=== PATIENT | female | born 1995 | race Caucasian/White ===

== ENCOUNTER 2019-06-02 06:32 | Inpatient (IN) | payer OTHER, SELFPAY ==
[2019-06-02] VITALS (64 sets, daily range): BP systolic 90–135; BP diastolic 48–93; PULSE 74–117; RESP 18; TEMP 36.4–37.3; O2SAT 98–100; BMI 29.5
[2019-06-02 07:17] LABS: Basophils Percent Auto 0.5 % (0.2-1.2); Eosinophils Absolute Auto 0.1 K/mm3 (0-0.3); Eosinophils Percent Auto 1.6 % (0-4.4); Hemoglobin 11.4 g/dL (12.0-15.0); Immature Granulocyte Absolute 0.03 K/mm3 (0.00-0.031); Immature Granulocyte Percent A 0.3 % (0-0.5); Lymphocytes Percent Auto 17.4 % (18.3-44.2); Mean Corpuscular HGB Conc 32.6 g/dl (32-36); Mean Corpuscular Hemoglobin 30.3 pg (26-34); Mean Corpuscular Volume 93.1 fl (80-100); Mean Platelet Volume 11.4 fl (7.4-10.4); Monocytes Absolute Auto 0.6 K/mm3 (0.1-0.6); Monocytes Percent Auto 7.3 % (2.6-8.5); Neutrophils Absolute Auto 6.3 K/mm3 (1.3-6.7); Neutrophils Percent Auto 72.9 % (45.5-73.1); Platelet Count Result 181 k/mm3 (150-375); Red Blood Count 3.76 M/mm3 (4.2-5.4); Red Cell Distribution Width 13.6 % (11.5-14.5); White Blood Count 8.6 K/mm3 (4.5-10.0)
[2019-06-02] MEDS: LACTATED RINGERS 1,000 ML 125 ML IV CONT ×2 (07:25→11:02)
[2019-06-02] MEDS: OXYTOCIN 30 UNITS/NS 500 ML 30 UNITS/500 ML BAG IV CONT (07:26)
--- NOTE | 2019-06-02 07:48 | WPDOBADMIT ---
Obstetrics - Admit Note Admission Note: record reviewed. No pertinent additions to the history and/or any subsequent changes in the physical findings that are not consistent with the expected course of the were found. MIL clear odorless fluid, /-2 Additions to the history and/or subsequent changes in the physical findings follow. None.
--- NOTE | 2019-06-02 08:04 | LDADM ---
This patient, Alexandrea Craig, was admitted to Labor/Delivery/Recovery 105 on 06/02/19 at 06:32. Plans for labor, pain management and were discussed with patient. Patient/family oriented to hospital policies and general routines including ID bracelet, bed and alarms, visiting hours, pain management, procedures, bathroom and other care routines, personal items, smoking policy, room service/diet and guest tray routines, security routines, and visiting hours. Patient/Family are encouraged to report perceived risks to care and to ask questions if they do not understand what they are told or what they should do. See OBIX for further documentation.
--- NOTE | 2019-06-02 11:10 | WPDANESEPP ---
Anes - Eval Pre Procedure Procedure: Labor Epidural Date/Time: 06/02/19 13:15 Surgeon: Ginger Preop Diagnosis: Labor Pain Pre Op Diagnosis: Induction of Labor Patient Data Age: 23 Gender: F Height: 5 ft 1 in Weight: 71 kg Last Vital Signs Temp 36.5 C 06/02/19 11:33 Pulse 79 06/02/19 13:11 BP 100/56 L 06/02/19 13:11 Pulse Ox 100 06/02/19 11:57 Allergies Allergy/AdvReac Type Severity Reaction Status Date / Time amoxicillin Allergy Unknown Unknown Verified 05/11/19 13:35 codeine Allergy Unknown Itching Verified 05/11/19 13:35 Penicillins Allergy Unknown RASH Verified 05/11/19 13:35 Home Medications Medication Instructions Recorded Confirmed Type albuterol sulfate 1 puff INHALATION QID PRN #8.5 gm 03/23/19 Rx PNV cmb#95-ferrous fumarate-FA 1 tablet PO DAILY 05/11/19 05/11/19 History [] ondansetron HCl [Zofran] 4 mg PO DIRECTED 05/11/19 05/11/19 History sertraline [Zoloft] 100 mg PO DAILY 05/11/19 05/11/19 History Laboratory Tests 06/02/19 06/02/19 06/02/19 07:11 07:11 07:11 WBC 8.6 K/mm3 K/mm3 (4.5-10.0) RBC 3.76 M/mm3 L M/mm3 (4.2-5.4) Hgb 11.4 g/dL L g/dL (12.0-15.0) Hct 35.0 % L % (37.0-47.0) MCV 93.1 fl fl (80-100) MCH 30.3 pg pg (26-34) MCHC 32.6 g/dl g/dl (32-36) RDW 13.6 % % (11.5-14.5) Plt Count 181 k/mm3 k/mm3 (150-375) MPV 11.4 fl H fl (7.4-10.4) Immature Gran % (Auto) 0.3 % % (0-0.5) Neut % (Auto) 72.9 % % (45.5-73.1) Lymph % (Auto) 17.4 % L % (18.3-44.2) [place] % (Auto) 7.3 % % (2.6-8.5) Eos % (Auto) 1.6 % % (0-4.4) Baso % (Auto) 0.5 % % (0.2-1.2) Lymph # (Auto) 1.50 K/mm3 K/mm3 (0.9-3.2) [place] # (Auto) 0.6 K/mm3 K/mm3 (0.1-0.6) Eos # (Auto) 0.1 K/mm3 K/mm3 (0-0.3) Baso # (Auto) 0.0 K/mm3 K/mm3 (0.0-0.1) Abs Immat Gran (auto) 0.03 K/mm3 K/mm3 (0.00-0.031) Absolute Neuts (auto) 6.3 K/mm3 K/mm3 (1.3-6.7) Absolute Nucleated RBC 0.0 K/mm3 K/mm3 (0.0-0.012) Nucleated RBC % 0.0 % % (0.0-0.2) RPR Pending Blood Type O Positive Antibody Screen Negative : gestational age (ALO 05/29/19, ) Patient hx anesthesia problems: none Family hx anesthesia problems: none PMFSH Past Medical History Medical History History of anxiety Family History Family History Other Unknown family medical history Social History Social History Smoking status: Former smoker Second hand tobacco smoke exposure: No Substance use: never Gender identity (if verbalized by the patient): Female Spiritual care concerns: No Exam Day of Procedure 06/02/19 13:15
[2019-06-02 16:06] LABS: Rapid Plasma Reagin Non-Reactive (NonReactive)
--- NOTE | 2019-06-02 16:41 | PM.OBPRVD ---
OB - Delivery Note Procedure Delivery date: 06/02/19 Intrapartal events: None Induction method: per pitocin protocol Delivery monitor: external FHT and external uterine Route of delivery: Episiotomy description: None Laceration description: None Estimated blood loss (mL): 72 Anesthesia type: Epidural Baby Date of : 06/02/19 Time of : 16:27 Weeks of gestation at delivery: 39 presentation: vertex position: Left Occiput Anterior Placenta delivery description: Spontaneous cord vessel description: 3 Vessels score one minute: 9 score five minutes: 9 Narrative: Mother and baby in stable condition. Peds here for delivery d/t possible arrythmia. Cord gasses collected. .75cc arterial 1cc venous.
[2019-06-02] MEDS: IBUPROFEN 600 MG TABLET PO (18:41)
[2019-06-02] MEDS: BENZOCAINE 20% AER SPR (*SP) 56 GM CAN 1 SPRAY TOPICAL (18:42)
[2019-06-02] MEDS: SERTRALINE HCL 50 MG TABLET 100 MG PO ×2 (20:00→23:08)
[2019-06-02] MEDS: ACETAMINOPHEN 325 MG TABLET 650 MG PO (20:31)
--- NOTE | 2019-06-02 22:04 | PC.NURSE ---
Patient transferred to post room #291 via wheelchair with baby in bassinet. Support person present. Oriented to unit, room, information board, rooming in, admission packet and security measures. Patient verbalizes understanding.
[2019-06-03] MEDS: IBUPROFEN 600 MG TABLET PO ×3 (01:25→16:30)
[2019-06-03] MEDS: ACETAMINOPHEN 325 MG TABLET 650 MG PO ×2 (05:44→12:15)
[2019-06-03 06:05] LABS: Hematocrit 31.2 % (37.0-47.0); Hemoglobin 10.3 g/dL (12.0-15.0)
[2019-06-03 07:45] VITALS: BP 110/77; PULSE 83; RESP 18; TEMP 36.5; O2SAT 98
--- NOTE | 2019-06-03 07:52 | PM.OBPNVD ---
OB - PN: Subj Subjective Date/time seen: 06/03/19 07:52 OB - PN: Obj Data Labs CBC & Chem 7: 06/03/19 05:50 Labs: Laboratory Results - last 24 hr 06/02/19 06/02/19 06/03/19 07:11 07:11 05:50 Hgb 10.3 L Hct 31.2 L RPR Non-reactive Blood Type O Positive Antibody Screen Negative OB - PN A/P Plan day: 1 Plan: routine care Comments: Pt requesting stronger pain medication for cramps. Time Spent With Patient Time: Total time spent is greater than 50% in coordination of care (as documented) at patient's floor/unit and/or counseling patient: Review of Systems Review of Systems: All systems reviewed & are unremarkable except as noted in HPI and below Exam Narrative: Exam Narrative: Fundus firm and vaginal flow controlled. Const: General: comfortable Resp: Effort & Inspection: normal respiratory effort Psych: Appearance: grossly normal Affect: normal affect Attitude: cooperative Judgement: Good judgement present (Psych)
--- NOTE | 2019-06-03 07:55 | WPDANLDPN2 ---
Anes-Prog Note L&D Date/Time: 06/03/19 07:55 Comfortable throughout: labor and delivery Neuraxial method: epidural Epidural/Spinal procedure site: clean & non-tender Neuro status: Neuro function grossly intact. Cardiovascular status: normal Respiratory status: normal Airway patency: baseline Mental status: baseline Post-Op hydration status: normal Vital Signs: Last Vital Signs Temp 36.6 C 06/02/19 19:45 Pulse 80 06/02/19 19:45 Resp 18 06/02/19 19:45 BP 103/62 06/02/19 19:45 Pulse Ox 98 06/02/19 19:45 I/O: Intake & Output 06/02/19 06/02/19 06/03/19 15:59 23:59 07:59 Intake Total 1000 100 Output Total 253 Balance 1000 -153 Post-procedural complaints: none Patient feedback: Patient satisfied with anesthetic care.
--- NOTE | 2019-06-03 08:08 | P.PNOB_ITS ---
OB - PN: Subj Subjective Date/time seen: 06/03/19 08:08 OB - PN: Obj Data Labs CBC & Chem 7: 06/03/19 05:50 Labs: Laboratory Results - last 24 hr 06/02/19 06/02/19 06/03/19 07:11 07:11 05:50 Hgb 10.3 L Hct 31.2 L RPR Non-reactive Blood Type O Positive Antibody Screen Negative OB - PN A/P Plan day: 1 Plan: discharge home Comments: Pt has now decided to go home this evening. Time Spent With Patient Time: Total time spent is greater than 50% in coordination of care (as d ocumented) at patient's floor/unit and/or counseling patient:
--- NOTE | 2019-06-03 08:08 | PM.OBDSVD ---
DS: Diagnosis Discharge Diagnosis (1) Vaginal delivery: Code(s): O80 - Encounter for full-term uncomplicated delivery Status: Acute OB - DS: Summary OB Procedures : None OB Procedures Intrapartum: Spontaneous Vag Delivery OB Procedures: : None Time Spent with Patient Time attestation: Total time spent providing and/or coordinating discharge services: Exam Const: General: comfortable Resp: Effort & Inspection: normal respiratory effort Cardio: Rate: regular rate GI: GI Palp: Yes Soft to palpation Psych: Appearance: grossly normal Affect: normal affect Attitude: cooperative Thought content: Yes Normal thought content present Judgement: Good judgement present (Psych) DS: Data Data Completed and Pending Labs on day of discharge: Labs from last 24 hours 06/03/19 06/02/19 06/02/19 05:50 07:11 07:11 Hgb 10.3 L Hct 31.2 L RPR Non-reactive Blood Type O Positive Antibody Screen Negative Discharge Plan Discharge Attending physician on discharge: Roxane Miles Discharging Clinician: Kathi Keys Patient Disposition: Home, Self-Care Activity: pelvic rest Diet: as tolerated Patient Instructions: Antibiotic Form Stand Alone Forms: General Discharge Information Follow-up/Referrals: Kathi Keys CNM [Certified Nurse Field Technician] - Discharge Medications: Continued albuterol sulfate 90 mcg/actuation HFA aerosol inhaler 1 puff INHALATION QID PRN (Reason: shortness of breath or wheezing) Qty: 8.5 RF: 0 sertraline [Zoloft] 100 mg Tablet 100 mg PO DAILY RF: 0 PNV cmb#95-ferrous fumarate-FA [] 28 mg iron- 800 mcg Tablet 1 tablet PO DAILY RF: 0 Discontinued ondansetron HCl [Zofran] 4 mg Tablet 4 mg PO DIRECTED RF: 0 Date of admission: 06/02/19 06:32 Primary Care Provider: Moses Goode Admitting Provider: Roxane Miles Attending physician on admission: Roxane Miles
[2019-06-03] MEDS: MULTIVIT/MIN/PREN/FOL AC/IRON TABLET 1 TAB PO (08:44)
--- NOTE | 2019-06-03 14:15 | PC.NURSE ---
Consulted with patient, mother reports tenderness with feeding. Mother reports she attempted with first and pumped for a few months. Both nipples have bruised areas from shallow possible shallow latch. Reviewed feeding cues, frequencies, duration of feedings, feeding elimination flow sheet, and signs of adequate intake. Demonstrated stimulation techniques to wake infant for feeding. Assisted with to breast. Reviewed positioning/alignment in cross cradle, holding breast in U hold and guided asymmetrical latch on. Discussed rational for each. was able to latch correctly with in a few attempts. Mother reports she can feel infant is latched more deeply than previous feedings. nursed eagerly, with steady draws and frequent swallowing noted. Reviewed signs of a correct latch, effective nursing and suck swallow ratio. Infant was able to maintain latch without discomfort to mother. Nipple care reviewed. Suggested mother stimulate during feeding to keep infant nursing effectively for increased intake and assist with maintaining deep latch. Demonstrated how to adjust latch more deeply while feeding. Mother wishes for 24 hour discharge. Mother is feeding as required and waking to feed if needed. is feeding as required with several effective feedings in the past 24 hours, and is currently meeting outcomes for weight, output, jaundice and feeding frequencies. Mother states she feels confident to continue effective at home. Reviewed transition to breast milk, signs of adequate intake, and engorgement/relief. Instructed to call ICP if intake/output less than required. Reviewed regular medications mother is taking. Information provided per [facility]. Reviewed community resources on the [facility] website and in the Mom/Baby guide. Information on outpatient services provided. Mother has no further questions at this time.
[2019-06-04 13:42] VITALS: BP 129/78; PULSE 80; RESP 18; TEMP 36.5
== END 2019-06-03 18:59 | disposition home or self-care (01) | DRG 560 ==
LOC: ANHLDR 06:36 → ANHOB2 19:30
PROVIDERS: Advanced Practice Midwife; Admitting Provider Obstetrics & Gynecology; PCP Emergency Medicine; Visit Provider Obstetrics & Gynecology
DX: O43.113 Circumvallate placenta, third trimester (principal); Z3A.39 39 weeks gestation of pregnancy; Z37.0 Single live birth; Z87.891 Personal history of nicotine dependence; Z23 Encounter for immunization; O71.7 Obstetric hematoma of pelvis
CPT/HCPCS: 36415; 85014; 85018; 85025; 86592; 86850; 86900; 86901; A9270; J2590; J2795; J3010; J7120

== ENCOUNTER 2019-10-02 11:03 | Emergency (ER) | payer OTHER, SELFPAY ==
[2019-10-02] VITALS (7 sets, daily range): BP systolic 115–133; BP diastolic 66–88; PULSE 78–94; RESP 16–20; TEMP 36.9–37.3; O2SAT 94–98
--- NOTE | ~2019-10-02 | CT_ITS ---
EXAMINATION: CT brain wo con DATE: 10/02/2019 11:52 INDICATION: Seizure. Headache. TECHNIQUE: Computed tomography (CT) of the head was performed without intravenous contrast. The mA wa s adjusted according to patient size. Iterative reconstruction technique was employed. The dose-lengt h product was 605.33 mGy-cm. COMPARISON: Head CT 10/01/2017 FINDINGS: There is no intracranial hemorrhage, acute infarction, or abnormal intracranial mass lesion . The ventricles are normal in size. The orbits are normal. There is mild mucosal thickening in the p aranasal sinuses. There is a trace right mastoid effusion. IMPRESSION: 1. Normal brain. Reviewed, dictated and finalized at location A. IMPRESSION: 1. Normal brain.
--- NOTE | 2019-10-02 11:20 | ECG_ITS ---
Measurements Intervals [place] Rate: 85 P: -39 TX: 136 QRS: 77 QRSD: 86 T: 57 QT: 341 QTc: 406 Interpretive Statements SINUS RHYTHM NORMAL ECG Electronically Signed On 10-02-2019 11:32:03 CDT by Cristóbal Moore D.O.
[2019-10-02 11:39] LABS: Basophils Absolute Auto 0.1 K/mm3 (0.0-0.1); Basophils Percent Auto 1.3 % (0.2-1.2); Eosinophils Absolute Auto 0.4 K/mm3 (0-0.3); Eosinophils Percent Auto 6.2 % (0-4.4); Hematocrit 39.7 % (37.0-47.0); Hemoglobin 13.3 g/dL (12.0-15.0); Immature Granulocyte Absolute 0.02 K/mm3 (0.00-0.031); Immature Granulocyte Percent A 0.3 % (0-0.5); Lymphocytes Absolute Auto 0.82 K/mm3 (0.9-3.2); Lymphocytes Percent Auto 13.7 % (18.3-44.2); Mean Corpuscular HGB Conc 33.5 g/dl (32-36); Mean Corpuscular Hemoglobin 30.2 pg (26-34); Mean Platelet Volume 10.1 fl (7.4-10.4); Monocytes Absolute Auto 0.2 K/mm3 (0.1-0.6); Neutrophils Absolute Auto 4.4 K/mm3 (1.3-6.7); Neutrophils Percent Auto 74.5 % (45.5-73.1); Platelet Count Result 266 k/mm3 (150-375); Red Blood Count 4.41 M/mm3 (4.2-5.4); Red Cell Distribution Width 13.1 % (11.5-14.5)
--- NOTE | 2019-10-02 11:48 | ED.SEIZURE ---
HPI - Seizure General Chief Complaint: Seizure Stated Complaint: seizure Time Seen by Provider: 10/02/19 11:27 Source: patient Mode of arrival: EMS Limitations: other (patient does not remember event) History of Present Illness HPI Narrative: This is a 24 year old female that presents to the ER for seizure today. Reports she woke up with a headache this morning. Reports she took some Tylenol and went to take a nap. Reports when she woke up she continued to have a headache. Reports she next remembers her mother next to her crying. Mom told her she had a seizure again. Mother called EMS. Patient reports she has had 1 prior seizure 2 years ago. She was started on Lamictal at that time. Reports it had been so long without her having a seizure that she was taking off Lamictal. Reports she was recently started on it again for bipolar depression. Denies fever, chest pain, shortness of breath, abdominal pain, vision changes, vomiting, numbness, or weakness. Seizure History: Yes (WITH 1ST PREG AT 7 MONTHS) Related Data Home Medications Medication Instructions Recorded Confirmed PNV cmb#95-ferrous fumarate-FA 1 tablet PO DAILY 05/11/19 05/11/19 [] sertraline [Zoloft] 100 mg PO DAILY 05/11/19 05/11/19 Lamictal PO HS 10/02/19 biotin 2,500 mcg PO DAILY 10/02/19 10/02/19 Allergies Allergy/AdvReac Type Severity Reaction Status Date / Time amoxicillin Allergy Unknown Unknown Verified 05/11/19 13:35 Penicillins Allergy Unknown RASH Verified 05/11/19 13:35 Review of Systems Review of Systems: Narrative: CONSTITUTIONAL: Denies fever EYES: Denies visual changes CARDIOVASCULAR: Denies chest pain RESPIRATORY: Denies dyspnea. GASTROINTESTINAL: Denies abdominal pain, nausea, vomiting GENITOURINARY: Denies dysuria or hematuria. NEUROLOGIC: Reports headache. Denies numbness, or weakness. All systems reviewed & are unremarkable except as noted in HPI and below PMFSH Past Medical History Medical History (Updated 10/02/19 @ 15:07 by Angela Martin PA-C) History of anxiety History of seizures Social History Social History Smoking status: Former smoker Second hand tobacco smoke exposure: No Substance use: never Gender identity (if verbalized by the patient): Female Spiritual care concerns: No Exam Narrative: Exam Narrative: GENERAL: Well-appearing, well-nourished, and in no acute distress. HEAD: Normocephalic, atraumatic. EYES: PERRLA and EOMI. ENT: Nares clear, no rhinorrhea or epistaxis. Mucous membranes moist. Oropharynx without tonsillar hypertrophy exudate or other lesions. Bilateral TMs pearly mcdaniel non-bulging NECK: Supple. No adenopathy or masses. CHEST: Clear to auscultation. No respiratory distress. No wheezes rales or rhonchi HEART: Regular rate and rhythm. No murmur heard. Normal peripheral pulses. ABDOMEN: Soft, nontender, nondistended, normal active bowel sounds. EXTREMITIES: Normal range of motion. No edema. SKIN: Warm, dry, no rash. NEURO: No focal deficits. Alert and oriented x3. Cranial nerves II through XII grossly intact. Normal [id number] PSYCH: Normal mood and affect Course Consultations Consultation #1: Spoke with Dr. Ludwig about patient and work-up who would like Lamictal increased to 50 mg twice daily and will follow-up in clinic. Date: 10/02/19 Time: 15:06 Vital Signs Vital signs: Vital Signs Temperature 99.2 F 10/02/19 11:03 Pulse Rate 94 10/02/19 11:03 Respiratory Rate 18 10/02/19 11:03 Blood Pressure 133/88 10/02/19 11:03 Pulse Oximetry 95 10/02/19 11:03 Temperature 99.2 F 10/02/19 11:03 Pulse Rate 82 10/02/19 14:17 Respiratory Rate 20 10/02/19 14:17 Blood Pressure 127/68 10/02/19 14:17 Pulse Oximetry 98 10/02/19 14:17 MDM - Seizure MDM Narrative Medical decision making narrative: Patient presents the emergency department after a generalized seizure today. Witnessed by her mo
[2019-10-02 11:51] LABS: Alanine Aminotransferase 18 U/L (4-35); Albumin Level 4.6 g/dL (3.5-5.1); Alkaline Phosphatase 85 U/L (38-126); Aspartate Amino Transferase 34 U/L (14-36); Bilirubin,Total 0.4 mg/dL (0.2-1.3)
[2019-10-02 11:52] LABS: Anion Gap 12.4 mmol/L (7-16); Blood Urea Nitrogen 14 mg/dL (7-17); Calcium 9.2 mg/dL (8.4-10.2); Carbon Dioxide 27 mmol/L (22-30); Chloride 101 mmol/L (98-107); Estimated CRCL calculation 110 ml/min; Estimated Glomerular Filt Rate > 60; Glucose 104 mg/dL (65-105); Potassium 4.4 mmol/L (3.4-5.0); Sodium 136 mmol/L (137-145)
[2019-10-02] MEDS: SODIUM CHLORIDE 0.9% IV 1,000 ML 999 ML IV CONT (12:09)
[2019-10-02 12:12] LABS: Magnesium 1.8 mg/dL (1.6-2.3)
[2019-10-02] MEDS: KETOROLAC 15 MG/ML VIAL (*BKC) IV PUSH (12:12)
[2019-10-02 12:20] LABS: Add Urine Microscopic? NO; Appearance Urine Clear (Clear); Bilirubin Urine Negative (Negative); Blood Urine Negative (Negative); Color Urine Straw (Yellow); Glucose Urine UA Negative (Negative); Ketones Urine Negative (Negative); Leukocyte Esterase Ur Negative LEU/UL (Negative); Nitrate Urine Negative (Negative); Protein Urine Negative (Negative); Specific Grav Ur 1.019 (1.001-1.035); Urobilinogen Urine Negative mg/dL (<2.0)
[2019-10-02 12:37] LABS: Amphetamine Screen Urine Negative (Negative); Barbiturate Screen Urine Negative (Negative); Benzodiazepines Screen Urine Negative (Negative); Cannabinoid Screen Urine Negative (Negative); Cocaine Screen Urine Negative (Negative); Methadone Screen Urine Negative (Negative); Opiate Screen Urine Negative (Negative); Phencyclidine Screen Urine Negative (Negative)
[2019-10-02] MEDS: diphenhydrAMINE HCl INJ 50 MG/ML VIAL 25 MG IV PUSH (13:38)
[2019-10-02] MEDS: METOCLOPRAMIDE HCL INJ 10 MG/2 ML VIAL IV PUSH (13:39)
[2019-10-07 22:36] LABS: Lamotrigine Lamictal 0.9 mcg/mL (4.0-18.0)
== END 2019-10-02 15:36 | disposition home or self-care (01) ==
PROVIDERS: Physician Assistant; Emergency Provider Emergency Medicine; PCP Emergency Medicine
DX: R56.9 Unspecified convulsions (principal); F31.9 Bipolar disorder, unspecified
CPT/HCPCS: 36415; 70450; 80048; 80076; 80175; 80307; 81003; 81025; 83735; 85025; 93005; 96361; 96365; 96375; 99284; J0131; J1200; J1885; J2765; J7030

== ENCOUNTER 2019-11-09 01:28 | Outpatient (CLI) | payer OTHER, SELFPAY ==
[2019-11-09 16:17] LABS: SARS-CoV-2 RNA PCR Negative
== END 2019-11-09 01:29 | disposition home or self-care (01) ==
LOC: ANHCOVIDDT 01:28
PROVIDERS: PCP Emergency Medicine; Visit Provider Obstetrics & Gynecology
DX: Z01.812 Encounter for preprocedural laboratory examination (principal); Z20.828 Contact with and (suspected) exposure to other viral communicable diseases
CPT/HCPCS: 87635; C9803; U0003

== ENCOUNTER 2019-11-11 00:15 | Day surgery (SDC) | payer OTHER, SELFPAY ==
[2019-11-03 15:24] VITALS: BMI 27.9
[2019-11-11] VITALS (7 sets, daily range): BP systolic 103–116; BP diastolic 57–64; PULSE 72–108; RESP 10–20; TEMP 36.1–36.6; O2SAT 97–100
--- NOTE | 2019-11-11 07:11 | WPDHPUPDATE1 ---
History and Physical Update Update Date/Time: 11/11/19 07:11 History and Physical has been reviewed, including an updated exam of the patient. There are NO changes in the patient's condition. Risks, benefits, and alternatives have been discussed and questions answered. Patient agrees to proceed with procedure.
--- NOTE | 2019-11-11 07:32 | P.PNAN_ITS ---
Anes - Initial Pre Proc Eval Procedure: Operation Date: 11/11/19 09:30 Proposed Procedures p Diagnostic Laparoscopy - Roxane Miles MD Date/Time: 11/11/19 07:32 Surgeon: Roxane Miles MD Pre Op Diagnosis: Pelvic and Perineal Pain Patient Data Age: 24 Gender: F Height: 5 ft 1 in Weight: 67.13 kg Allergies Allergy/AdvReac Type Severity Reaction Status Date / Time amoxicillin Allergy Unknown Hives Verified 11/11/19 07:42 Penicillins Allergy Unknown Hives Verified 11/11/19 07:42 Home Medications Medication Instructions Recorded Confirmed Type albuterol sulfate 1 puff INHALATION QID PRN #8.5 gm 03/23/19 11/03/19 Rx PNV cmb#95-ferrous fumarate-FA 1 tablet PO DAILY 05/11/19 11/03/19 History [] biotin 2,500 mcg PO DAILY 10/02/19 11/03/19 History diphenhydramine HCl [Benadryl] 25 mg PO DAILY PRN 11/03/19 11/03/19 History fluoxetine 10 mg PO DAILY 11/03/19 11/03/19 History fluoxetine 20 mg PO DAILY 11/03/19 11/03/19 History hydrocodone-acetaminophen 1 tablet PO Q6H PRN 11/03/19 11/03/19 History hydroxyzine pamoate 50 mg PO QID PRN 11/03/19 11/03/19 History lamotrigine 50 mg PO BID 11/03/19 11/03/19 History prazosin 1 mg PO HS 11/03/19 11/03/19 History Patient hx anesthesia problems: none Family hx anesthesia problems: none [facility] Past Medical History Medical History (Updated 11/11/19 @ 08:03 by Isaias Pinon MD) Anxiety Asthma Depression History of anxiety History of seizures two seizures in the past and ; continues to take medications Social History Social History Years smoked: 1 Smoking status: Current every day smoker Tobacco type: cigarettes Second hand tobacco smoke exposure: No Substance use: never Gender identity (if verbalized by the patient): Female Spiritual care concerns: No Anes - Eval Final PreProcedure Day of Procedure 11/11/19 07:32 Patient weight: normal Heart: regular rate and rhythm Lungs: clear to auscultation Airway: Mallampati scale class II Neurological: alert and oriented Last oral intake: >/= 8 hours ASA classification: II Emergent: no Anesthetic plan: proceed Anesthesia type and monitoring: general ETT and standard monitoring Informed Consent: The patient's anesthetic plan and its attendant risks and benefits were discussed with the patient/family/POA. Questions were solicited and answers provided to the satisfaction of the patient/family/POA.
[2019-11-11] MEDS: ACETAMINOPHEN 500 MG TABLET 1000 MG PO (07:48)
[2019-11-11] MEDS: LACTATED RINGERS 1,000 ML 30 ML IV CONT ×2 (08:02→11:33)
[2019-11-11] MEDS: KETOROLAC 15 MG/ML VIAL (*BKC) IV PUSH (08:02)
--- NOTE | 2019-11-11 10:57 | SUR.OPER ---
EBL:20cc
--- NOTE | 2019-11-11 11:18 | P.OP_ITS ---
Procedure Note - Detailed Date of procedure: 11/11/19 Pre-op diagnosis: Pelvic and Perineal Pain Procedure performed: Radical resection of endometriosis, 80 minutes of resection of endometriosis. Description of procedure: The patient was taken the operating room. She was prepped and draped in the dorsal lithotomy position after induction of general anesthesia. A 5 mm left upper quadrant incision was made in the abdominal skin with a scalpel. A 5 mm trocar was inserted the intra-abdominal cavity under direct visualization of the scope. A 5 mm left lower quadrant incision was made with the scalp on the abdominal skin and a 5 mm trocar was inserted the intra- abdominal cavity under direct visualization of the scope. A 5 mm infraumbilical incision was made with scalpel and a 5 mm trocar was inserted into the intra- abdominal cavity under direct visualization of the scope. Using sharp and blunt dissection along with cautery the pelvic peritoneum on the entire left side of the posterior cul-de-sac was removed. The ureter was dissected out down to the level of the uterine arteries and found to be intact. over 80 minutes of endometriosis resection was performed. On the right side of the posterior cul-de-sac endometrial implants were cauterized. This was done using bipolar cautery away from the ureter. Prior to the resection a CHANDRA manipulator was placed in the intrauterine cavity and the ovary was suspended using a suture transabdominally to the left ovary. This was placed using a Parrish-Amberly Endo Close needle. It was done by piercing the left lower quadrant of the abdominal wall holding the suture with the needle/trocar. The needle was placed through the left ovary and the suture was grasped on the left side of the left ovary. Pulled back through the trans abdominal wall . It was held there /both sutures held by a hemostatic. the dissection was complete the left side of the posterior cul-de-sac was covered with Interceed. The pelvis was irrigated with copious amounts of normal saline. The pneumoperitoneum was reduced. The trocars were removed. The patient was taken recovery room stable condition. Sponge lap and needle counts were correct x2. Anesthesia: GETA Surgeon: Rxoane Miles MD Estimated blood loss (mL): 75 Drains: No Packing: No Complications: No immediate complications Condition: stable Disposition: PACU Findings: There was endometriosis and scar tissue throughout the left side of the posterior cul-de-sac. There was endometrial implants on the right side of the posterior cul-de-sac. Normal appearing uterus tubes and ovaries. There was a very redundant sigmoid colon the ran into the upper abdomen that was full of firm stool, there is hemoperitoneum at the beginning of the case. It was in the posterior cul-de-sac.
--- NOTE | 2019-11-11 13:04 | SUR.PHASEII ---
PT DRESSING; AWAITING RIDE.
== END 2019-11-11 13:33 | disposition home or self-care (01) ==
PROVIDERS: PCP Emergency Medicine; Visit Provider Obstetrics & Gynecology
PROC: (CPT 49320; principal; 2019-11-11 09:30)
DX: N80.3 Endometriosis of pelvic peritoneum (principal); R10.2 Pelvic and perineal pain; N39.0 Urinary tract infection, site not specified; N92.6 Irregular menstruation, unspecified
CPT/HCPCS: 58662; A9270; J0330; J1100; J1170; J1885; J2250; J2405; J2704; J2710; J3010; J7120

== ENCOUNTER 2020-02-13 09:54 | Emergency (ER) | payer OTHER, SELFPAY ==
[2020-02-13] VITALS (10 sets, daily range): BP systolic 121–150; BP diastolic 66–98; PULSE 78–92; RESP 18; TEMP 36.1; O2SAT 97–100
--- NOTE | ~2020-02-13 | CT_ITS ---
EXAMINATION: CT abdomen pelvis wo con DATE: 02/13/2020 11:54 INDICATION: Right lower quadrant pain and vomiting TECHNIQUE: Computed tomography (CT) of the abdomen and pelvis was performed without intravenous contr ast. The dose-length product was 358.90 mGy-cm. Automated exposure control and iterative reconstructi on technique were employed. COMPARISON: CT dated 05/27/2015 FINDINGS: There is a 2 mm right UVJ stone with moderate right hydroureteronephrosis. There is right p erinephric and periureteral edema. Punctate right nephrolithiasis. Lung bases unremarkable. Heart size normal. No pleural or pericardial effusion. No significant vascul ar abnormality. No lymphadenopathy. Nonobstructive bowel gas pattern. The liver, spleen, pancreas, adrenal glands and left kidney are unremarkable. There are surgical rasmussen ges likely related to previous appendectomy. IMPRESSION: 1. Right UVJ stone measuring 2 mm with mild hydroureteronephrosis and periureteral edema. 2: Nonobstructing right nephrolithiasis. Reviewed, dictated and finalized at location A. CAL STAFF CREDENTIALING COORDINATOR IMPRESSION: 1. Right UVJ stone measuring 2 mm with mild hydroureteronephrosis and periurete ral edema. 2: Nonobstructing right nephrolithiasis.
--- NOTE | ~2020-02-13 | XR_ITS ---
XR abdomen/kub 1V 02/13/2020 12:04 Indication: Right flank pain Procedure: KUB Comparison: CT dated 02/13/2020 Findings: There is a 2 mm right UVJ stone adjacent to the coccyx. Bowel gas pattern nonobstructive. N o acute osseous abnormality. Impression: 1: Right UVJ stone measuring approximately 2 mm. Reviewed, dictated and finalized at location A. ITY TELLER Impression: 1: Right UVJ stone measuring approximately 2 mm.
[2020-02-13] MEDS: SODIUM CHLORIDE 0.9% IV 1,000 ML 999 ML IV CONT ×2 (10:26→13:05)
[2020-02-13] MEDS: FAMOTIDINE 20 MG/2 ML VIAL IV PUSH (10:27)
[2020-02-13] MEDS: ONDANSETRON INJ 4 MG/2 ML VIAL IV PUSH (10:27)
[2020-02-13] MEDS: LORazepam INJ (*CRX) 2 MG/ML VIAL 1 MG IV PUSH (10:33)
[2020-02-13 10:42] LABS: Basophils Absolute Auto 0.1 K/mm3 (0.0-0.1); Basophils Percent Auto 1.3 % (0.2-1.2); Eosinophils Absolute Auto 0.5 K/mm3 (0-0.3); Eosinophils Percent Auto 7.2 % (0-4.4); Hematocrit 40.2 % (37.0-47.0); Hemoglobin 13.4 g/dL (12.0-15.0); Immature Granulocyte Absolute 0.02 K/mm3 (0.00-0.031); Immature Granulocyte Percent A 0.3 % (0-0.5); Lymphocytes Absolute Auto 1.14 K/mm3 (0.9-3.2); Lymphocytes Percent Auto 16.5 % (18.3-44.2); Mean Corpuscular HGB Conc 33.3 g/dl (32-36); Mean Corpuscular Hemoglobin 29.5 pg (26-34); Mean Corpuscular Volume 88.4 fl (80-100); Mean Platelet Volume 9.5 fl (7.4-10.4); Monocytes Absolute Auto 0.4 K/mm3 (0.1-0.6); Monocytes Percent Auto 5.1 % (2.6-8.5); Neutrophils Absolute Auto 4.8 K/mm3 (1.3-6.7); Neutrophils Percent Auto 69.6 % (45.5-73.1); Platelet Count Result 248 k/mm3 (150-375); Red Blood Count 4.55 M/mm3 (4.2-5.4); Red Cell Distribution Width 12.2 % (11.5-14.5); White Blood Count 6.9 K/mm3 (4.5-10.0)
[2020-02-13 10:53] LABS: Alanine Aminotransferase 20 U/L (4-35); Albumin Level 4.5 g/dL (3.5-5.1); Alkaline Phosphatase 75 U/L (38-126); Anion Gap 10 mmol/L (8-16); Aspartate Amino Transferase 35 U/L (14-36); Bilirubin,Total 0.2 mg/dL (0.2-1.3); Blood Urea Nitrogen 17 mg/dL (7-17); Calcium 8.9 mg/dL (8.4-10.2); Carbon Dioxide 25 mmol/L (22-30); Chloride 107 mmol/L (98-107); Estimated CRCL calculation 110 ml/min; Estimated Glomerular Filt Rate > 60; Glucose 112 mg/dL (65-105); Lipase 65 U/L (23-300); Potassium 4.5 mmol/L (3.4-5.0); Sodium 142 mmol/L (137-145)
[2020-02-13 11:11] LABS: Add Urine Microscopic? YES; Appearance Urine Clear (Clear); Bilirubin Urine Negative (Negative); Blood Urine 1+ (Negative); Color Urine Straw (Yellow); Glucose Urine UA Negative (Negative); Ketones Urine Negative (Negative); Leukocyte Esterase Ur Negative LEU/UL (Negative); Mucus Urine Rare /lpf; Nitrate Urine Negative (Negative); Protein Urine 1+ mg/dL (Negative); RBC Urine 21-50 /hpf (0-2); Specific Grav Ur 1.018 (1.001-1.035); Urobilinogen Urine Negative mg/dL (<2.0); WBC Urine 0-3 /hpf
--- NOTE | 2020-02-13 11:18 | ED.GENADULT ---
HPI - General Adult General Chief complaint: Abdominal Pain <DEONDRE Cruz Last Filed: 02/13/20 14:03> Stated complaint: abd pain <DEONDRE Cruz Last Filed: 02/13/20 14:03> Time Seen by Provider: 02/13/20 10:04 <DEONDRE Cruz Last Filed: 02/13/20 14:03> Source: patient <DEONDRE Cruz Last Filed: 02/13/20 14:03> Mode of arrival: ambulatory <DEONDRE Cruz Last Filed: 02/13/20 14:03> Limitations: no limitations <DEONDRE Cruz Last Filed: 02/13/20 14:03> History of Present Illness HPI narrative: Patient is a 24-year-old female who presents with acute onset of sharp stabbing right flank pain that began this morning patient denies similar occurrence in the past notes associated nausea she had felt fine yesterday nothing is making the pain better or worse pain is remained constant and severe in nature <DEONDRE Cruz Last Filed: 02/13/20 14:03> Related Data Home medications: Home Medications Medication Instructions Recorded Confirmed [facility] cmb#95-ferrous fumarate-FA 1 tablet PO DAILY 05/11/19 11/11/19 [] biotin 2,500 mcg PO DAILY 10/02/19 11/11/19 diphenhydramine HCl [Benadryl] 25 mg PO DAILY PRN 11/03/19 11/11/19 fluoxetine 10 mg PO DAILY 11/03/19 11/11/19 fluoxetine 20 mg PO DAILY 11/03/19 11/11/19 hydroxyzine pamoate 50 mg PO QID PRN 11/03/19 11/11/19 lamotrigine 50 mg PO BID 11/03/19 11/11/19 <DEONDRE Cruz Last Filed: 02/13/20 14:03> Allergies/adverse reactions: Allergies Allergy/AdvReac Type Severity Reaction Status Date / Time amoxicillin Allergy Unknown Hives Verified 02/13/20 10:46 Penicillins Allergy Unknown Hives Verified 02/13/20 10:46 <DEONDRE Cruz Last Filed: 02/13/20 14:03> Review of Systems Review of Systems: All systems reviewed & are unremarkable except as noted in HPI and below <Power Casillas PA-C - Last Filed: 02/13/20 14:03> [facility] Past Medical History Medical History: Medical History Anxiety Asthma Depression History of anxiety History of seizures two seizures in the past and ; continues to take medications <Power Casillas PA-C - Last Filed: 02/13/20 14:03> Family History Family History: Family History Other Unknown family medical history <Power Casillas PA-C - Last Filed: 02/13/20 14:03> Social History Social History: Social History Years smoked: 1 Smoking status: Current every day smoker Tobacco type: cigarettes Second hand tobacco smoke exposure: No Substance use: never Gender identity (if verbalized by the patient): Female Spiritual care concerns: No <Power Casillas PA-C - Last Filed: 02/13/20 14:03> Exam Narrative: Exam Narrative: GENERAL: Ill-appearing, well-nourished, uncomfortable, and in no acute distress. HEAD: Normocephalic, atraumatic. EYES: PERRLA and EOMI. ENT: Nares clear, no rhinorrhea or epistaxis. Mucous membranes moist. CHEST: Clear to auscultation. No respiratory distress. No wheezes rales or rhonchi HEART: Regular rate and rhythm. No murmur heard. Normal peripheral pulses. ABDOMEN: Soft, generalized tenderness, nondistended, EXTREMITIES: Normal range of motion. No edema. SKIN: Warm, dry, no rash. NEURO: No focal deficits. Alert and oriented x3. PSYCH: Normal mood and affect. <Power Casillas PA-C - Last Filed: 02/13/20 14:03> Course Course Emergency Course: Patient in the room in no distress aware of case findings treatment plan diagnosis agreeing to follow with her urologist patient resting comfortably in no distress was treated has a small stone which she should be able to pass no other high risk change <Power Casillas PA-C - Last Filed: 02/13/20 14:03>
[2020-02-13] MEDS: MORPHINE SULFATE (*CRX) 4 MG/ML INJ IV PUSH ×2 (11:23→13:06)
[2020-02-13] MEDS: KETOROLAC 30 MG/ML VIAL (*BKC) IV PUSH (12:21)
== END 2020-02-13 14:37 | disposition home or self-care (01) ==
PROVIDERS: Emergency Provider General Practice; PCP Emergency Medicine
DX: N13.2 Hydronephrosis with renal and ureteral calculous obstruction (principal); F41.9 Anxiety disorder, unspecified; F32.9 Major depressive disorder, single episode, unspecified; J45.909 Unspecified asthma, uncomplicated; F17.210 Nicotine dependence, cigarettes, uncomplicated
CPT/HCPCS: 36415; 51701; 74018; 74176; 80053; 81001; 81025; 83690; 85025; 96361; 96374; 96375; 96376; 99284; J0131; J1885; J2060; J2270; J2405; J7030

== ENCOUNTER 2020-02-24 20:57 | Emergency (ER) | payer OTHER, SELFPAY ==
[2020-02-24 21:01] VITALS: BP 122/74; PULSE 93; RESP 20; TEMP 36.6; O2SAT 98
--- NOTE | 2020-02-24 21:05 | ECG_ITS ---
Measurements Intervals [place] Rate: 84 P: -32 CO: 136 QRS: 72 QRSD: 93 T: 26 QT: 294 QTc: 349 Interpretive Statements SINUS RHYTHM NONSPECIFIC T-WAVE ABNORMALITY- DIFFUSE LEADS BORDERLINE ECG Electronically Signed On 02-25-2020 6:15:26 WEB COMMUNICATIONS SPECIALIST by Cristóbal Moore D.O.
[2020-02-24 21:18] LABS: Basophils Absolute Auto 0.1 K/mm3 (0.0-0.1); Eosinophils Absolute Auto 0.3 K/mm3 (0-0.3); Eosinophils Percent Auto 6.2 % (0-4.4); Hematocrit 41.5 % (37.0-47.0); Hemoglobin 13.9 g/dL (12.0-15.0); Immature Granulocyte Absolute 0.01 K/mm3 (0.00-0.031); Immature Granulocyte Percent A 0.2 % (0-0.5); Lymphocytes Absolute Auto 1.79 K/mm3 (0.9-3.2); Lymphocytes Percent Auto 35.6 % (18.3-44.2); Mean Corpuscular HGB Conc 33.5 g/dl (32-36); Mean Corpuscular Hemoglobin 29.7 pg (26-34); Mean Corpuscular Volume 88.7 fl (80-100); Mean Platelet Volume 9.3 fl (7.4-10.4); Monocytes Absolute Auto 0.3 K/mm3 (0.1-0.6); Monocytes Percent Auto 5.2 % (2.6-8.5); Neutrophils Absolute Auto 2.6 K/mm3 (1.3-6.7); Neutrophils Percent Auto 50.8 % (45.5-73.1); Platelet Count Result 317 k/mm3 (150-375); Red Blood Count 4.68 M/mm3 (4.2-5.4)
[2020-02-24 21:31] LABS: Acetaminophen < 10 ug/mL (10-30); Alanine Aminotransferase 25 U/L (4-35); Albumin Level 4.7 g/dL (3.5-5.1); Alkaline Phosphatase 92 U/L (38-126); Anion Gap 10 mmol/L (8-16); Aspartate Amino Transferase 34 U/L (14-36); Bilirubin,Total 0.2 mg/dL (0.2-1.3); Blood Urea Nitrogen 16 mg/dL (7-17); Calcium 9.7 mg/dL (8.4-10.2); Carbon Dioxide 33 mmol/L (22-30); Chloride 103 mmol/L (98-107); Estimated CRCL calculation 82 ml/min; Estimated Glomerular Filt Rate > 60; Ethanol 259 mg/dL (<10); Glucose 100 mg/dL (65-105); Potassium 3.6 mmol/L (3.4-5.0); Salicylate < 1.0 mg/dL (2-20); Sodium 146 mmol/L (137-145)
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
[2020-02-24 22:21] VITALS: BP 119/73; PULSE 97; RESP 20; O2SAT 98
== END 2020-02-24 22:54 | disposition home or self-care (01) ==
PROVIDERS: Emergency Provider Emergency Medicine; PCP Emergency Medicine
DX: F10.920 Alcohol use, unspecified with intoxication, uncomplicated (principal); F41.9 Anxiety disorder, unspecified; J45.909 Unspecified asthma, uncomplicated; F32.9 Major depressive disorder, single episode, unspecified; G40.909 Epilepsy, unspecified, not intractable, without status epilepticus; F17.210 Nicotine dependence, cigarettes, uncomplicated
CPT/HCPCS: 36415; 80053; 80307; 84443; 85025; 93005; 99283

== ENCOUNTER 2020-04-20 10:07 | Outpatient (CLI) | payer OTHER, SELFPAY ==
[2020-04-20 11:36] LABS: Beta HCG Quantitative < 2.39 mIU/ML
== END 2020-04-20 10:08 | disposition home or self-care (01) ==
PROVIDERS: PCP Emergency Medicine; Visit Provider Advanced Practice Midwife
DX: Z30.9 Encounter for contraceptive management, unspecified (principal)
CPT/HCPCS: 36415; 84702

== ENCOUNTER 2020-04-29 00:17 | Emergency (ER) | payer OTHER, SELFPAY ==
[2020-04-29 00:20] VITALS: BP 117/72; PULSE 87; RESP 20; TEMP 36.7; O2SAT 96
--- NOTE | 2020-04-29 00:53 | PC.NURSE ---
pt having a seizure with snoring resp & stairing to the left , no tonic or clonic movement
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
[2020-04-29] MEDS: LORazepam INJ (*CRX) 2 MG/ML VIAL (01:30)
--- NOTE | 2020-04-29 01:32 | PC.NURSE ---
pt had a conic & tonic seizure lasting a bout a minute with postictal .pt given 1 mg of ativan @ o130
[2020-04-29 01:36] VITALS: PULSE 107; RESP 24; O2SAT 96
[2020-04-29 01:43] LABS: Basophils Absolute Auto 0.1 K/mm3 (0.0-0.1); Eosinophils Absolute Auto 0.5 K/mm3 (0-0.3); Eosinophils Percent Auto 6.4 % (0-4.4); Hematocrit 40.6 % (37.0-47.0); Hemoglobin 13.4 g/dL (12.0-15.0); Immature Granulocyte Absolute 0.02 K/mm3 (0.00-0.031); Immature Granulocyte Percent A 0.3 % (0-0.5); Lymphocytes Absolute Auto 1.08 K/mm3 (0.9-3.2); Lymphocytes Percent Auto 15.1 % (18.3-44.2); Mean Corpuscular Hemoglobin 29.8 pg (26-34); Mean Corpuscular Volume 90.2 fl (80-100); Mean Platelet Volume 10.4 fl (7.4-10.4); Monocytes Absolute Auto 0.4 K/mm3 (0.1-0.6); Monocytes Percent Auto 5.3 % (2.6-8.5); Neutrophils Absolute Auto 5.1 K/mm3 (1.3-6.7); Neutrophils Percent Auto 71.9 % (45.5-73.1); Platelet Count Result 268 k/mm3 (150-375); Red Cell Distribution Width 13.7 % (11.5-14.5); White Blood Count 7.1 K/mm3 (4.5-10.0)
[2020-04-29 01:44] LABS: Alanine Aminotransferase 19 U/L (4-35); Albumin Level 4.5 g/dL (3.5-5.1); Alkaline Phosphatase 83 U/L (38-126); Anion Gap 6 mmol/L (8-16); Aspartate Amino Transferase 43 U/L (14-36); Bilirubin,Total 0.3 mg/dL (0.2-1.3); Blood Urea Nitrogen 19 mg/dL (7-17); Calcium 9.4 mg/dL (8.4-10.2); Carbon Dioxide 27 mmol/L (22-30); Chloride 103 mmol/L (98-107); Estimated CRCL calculation 111 ml/min; Estimated Glomerular Filt Rate > 60; Glucose 107 mg/dL (65-105); Potassium 4.6 mmol/L (3.4-5.0); Sodium 136 mmol/L (137-145)
[2020-04-29 02:30] VITALS: BP 105/56; PULSE 94; RESP 18; O2SAT 96
[2020-04-29 03:19] VITALS: BP 96/64; PULSE 86; RESP 20; O2SAT 96
[2020-04-29 04:12] LABS: Add Urine Microscopic? YES; Appearance Urine Clear (Clear); Bacteria Urine Trace /hpf; Bilirubin Urine Negative (Negative); Blood Urine Negative (Negative); Color Urine Straw (Yellow); Glucose Urine UA Negative (Negative); Ketones Urine Negative (Negative); Leukocyte Esterase Ur Negative LEU/UL (Negative); Mucus Urine Rare /lpf; Nitrate Urine Negative (Negative); Protein Urine 1+ mg/dL (Negative); RBC Urine 0-2 /hpf (0-2); Specific Grav Ur 1.014 (1.001-1.035); Squamous Epithelial Cell Urine Few /hpf (Few); Urobilinogen Urine Negative mg/dL (<2.0); WBC Urine 0-3 /hpf
[2020-04-29 05:00] VITALS: BP 108/72; PULSE 82; RESP 16; TEMP 36.6; O2SAT 96
== END 2020-04-29 05:01 | disposition home or self-care (01) ==
LOC: ANHED 00:28
PROVIDERS: Emergency Medicine; Emergency Provider Emergency Medicine; PCP Emergency Medicine
DX: G40.909 Epilepsy, unspecified, not intractable, without status epilepticus (principal); F41.9 Anxiety disorder, unspecified; J45.909 Unspecified asthma, uncomplicated; F32.9 Major depressive disorder, single episode, unspecified; F17.210 Nicotine dependence, cigarettes, uncomplicated
CPT/HCPCS: 36415; 80053; 81001; 81025; 85025; 96374; 99284; J2060

== ENCOUNTER 2021-07-03 03:14 | Emergency (ER) | payer OTHER, SELFPAY ==
[2021-07-03] VITALS (19 sets, daily range): BP systolic 119–137; BP diastolic 67–81; PULSE 91–113; RESP 9–26; TEMP 36.3–36.5; O2SAT 99–100
[2021-07-03 04:17] LABS: Basophils Absolute Auto 0.1 K/mm3 (0.0-0.1); Basophils Percent Auto 0.8 % (0.2-1.2); Eosinophils Absolute Auto 0.1 K/mm3 (0-0.3); Hematocrit 36.6 % (37.0-47.0); Hemoglobin 11.9 g/dL (12.0-15.0); Immature Granulocyte Absolute 0.02 K/mm3 (0.00-0.031); Immature Granulocyte Percent A 0.3 % (0-0.5); Lymphocytes Absolute Auto 1.17 K/mm3 (0.9-3.2); Lymphocytes Percent Auto 18.3 % (18.3-44.2); Mean Corpuscular HGB Conc 32.5 g/dl (32-36); Mean Corpuscular Hemoglobin 28.1 pg (26-34); Mean Corpuscular Volume 86.5 fl (80-100); Mean Platelet Volume 10.4 fl (7.4-10.4); Monocytes Absolute Auto 0.5 K/mm3 (0.1-0.6); Monocytes Percent Auto 8.2 % (2.6-8.5); Neutrophils Absolute Auto 4.5 K/mm3 (1.3-6.7); Neutrophils Percent Auto 70.4 % (45.5-73.1); Platelet Count Result 298 k/mm3 (150-375); Red Blood Count 4.23 M/mm3 (4.2-5.4); Red Cell Distribution Width 13.7 % (11.5-14.5); White Blood Count 6.4 K/mm3 (4.5-10.0)
[2021-07-03 04:27] LABS: Ethanol < 10 mg/dL (<10)
[2021-07-03 04:28] LABS: Anion Gap 7 mmol/L (8-16); Blood Urea Nitrogen 11 mg/dL (7-17); Calcium 8.8 mg/dL (8.4-10.2); Carbon Dioxide 25 mmol/L (22-30); Chloride 103 mmol/L (98-107); Estimated CRCL calculation 159 ml/min; Estimated Glomerular Filt Rate > 60; Glucose 90 mg/dL (65-110); Potassium 3.6 mmol/L (3.4-5.0); Sodium 135 mmol/L (137-145)
[2021-07-03 04:40] LABS: Add Urine Microscopic? YES; Appearance Urine Cloudy (Clear); Bilirubin Urine Negative (Negative); Blood Urine Negative (Negative); Color Urine Yellow (Yellow); Glucose Urine UA Negative (Negative); Ketones Urine 1+ mg/dL (Negative); Leukocyte Esterase Ur Negative LEU/UL (Negative); Mucus Urine Few /lpf; Nitrate Urine Negative (Negative); Protein Urine 1+ mg/dL (Negative); Specific Grav Ur 1.017 (1.001-1.035); Squamous Epithelial Cell Urine Moderate /hpf (Few); Urobilinogen Urine Negative mg/dL (<2.0)
[2021-07-03 05:10] LABS: Barbiturate Screen Urine Negative (Negative); Benzodiazepines Screen Urine Negative (Negative)
[2021-07-03 05:13] LABS: Cannabinoid Screen Urine Negative (Negative); Cocaine Screen Urine Negative (Negative); Methadone Screen Urine Negative (Negative); Opiate Screen Urine Negative (Negative); Phencyclidine Screen Urine Negative (Negative)
--- NOTE | 2021-07-03 05:42 | PC.NURSE ---
Addendum entered by Elva Osorio RN 07/03/21 05:48: pt declined tylenol when asked if she wanted something for pain. Original Note: Pt stating I am having labor pains when questioned about it pt then stated that she was having period pains. when asked if she was having any bleeding she stated not yet states she saw FERRY OPERATOR on and had ultrasound.
[2021-07-03 05:46] LABS: Amphetamine Screen Urine Positive (Negative)
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
== END 2021-07-03 07:26 | disposition home or self-care (01) ==
PROVIDERS: Emergency Provider Emergency Medicine; PCP Emergency Medicine
DX: O9A.211 Injury, poisoning and certain other consequences of external causes complicating pregnancy, first trimester (principal); S39.91XA Unspecified injury of abdomen, initial encounter; O99.511 Diseases of the respiratory system complicating pregnancy, first trimester; J45.909 Unspecified asthma, uncomplicated; O99.341 Other mental disorders complicating pregnancy, first trimester; F41.9 Anxiety disorder, unspecified; F32.A Depression, unspecified; Z87.891 Personal history of nicotine dependence; Z3A.08 8 weeks gestation of pregnancy; Y04.2XXA Assault by strike against or bumped into by another person, initial encounter
CPT/HCPCS: 36415; 80048; 80307; 81001; 85025; 99283

== ENCOUNTER 2022-01-23 00:01 | Inpatient (IN) | payer OTHER, SELFPAY ==
[2022-01-23] VITALS (147 sets, daily range): BP systolic 81–140; BP diastolic 46–110; PULSE 70–115; RESP 18–20; TEMP 36.3–37.9; O2SAT 94–100; BMI 41.6
--- OUTSIDE RECORDS SUMMARY | 2022-01-23 00:03 | XMS_ITS | Encounter Summary ---
:1995 Author Care Team Providers Name Role Phone Moses Goode MD Primary Care Provider [phone] Reason for Visit OB visit OB [id number] EDC 02/13/2022 LMP 04/04/2021 Assessment and Plan 1. Routine care ? drug screen, urine Discussion Note: None recorded.Patient educational handouts: No information available. Plan of Care Reminders Provider Appointments None recorded. ? ? Lab Drug Screen, Urine 12/21/2021 [place] Referral None recorded. ? ? Procedures None recorded. ? ? Surgeries None recorded. ? ? Imaging None recorded. ? ? Medications Name Start Date ? ? albuterol sulfate HFA 90 mcg/actuation aerosol inhaler ? INHALE 2 PUFFS EVERY 4 HOURS BY INHALATION ROUTE N EEDED fluoxetine 40 mg capsule ? TAKE 1 CAPSULE BY MOUTH EVERY DAY FOR 30 DAYS fluticasone propionate 50 mcg/actuation nasal spray,zavala spension ? SPRAY 1 SPRAY BY INTRANASAL ROUTE EVERY DAY hydroxyzine HCl 10 mg tablet ? TAKE 1 TO 2 TABLETS BY MOUTH EVERY 6 HOURS NEEDED FOR ANXIETY olanzapine 2.5 mg tablet ? TAKE 1 TABLET BY MOUTH EVERY DAY IN THE MORNING FOR 3 0 DAYS olanzapine 5 mg tablet ? TAKE 1 TABLET BY MOUTH AT BEDTIME ondansetron 4 mg disintegrating tablet ? TAKE 1 TABLET BY MOUTH EVERY 8 HOURS NEEDED FOR NA USEA AND VOMITING ondansetron HCl 4 mg tablet ? TAKE 1 TABLET BY MOUTH EVERY 6 HOURS NEEDED OneTouch Delica Plus Lancet 33 gauge ? TEST BLOOD SUGAR 4 TIMES A DAY OneTouch Verio Reflect Meter ? TEST BLOOD SUGAR 4 TIMES A DAY OneTouch Verio test strips ? TEST BLOOD SUGAR 4 TIMES A DAY prednisone 20 mg tablet ?
--- OUTSIDE RECORDS SUMMARY | 2022-01-23 00:03 | XMS_ITS ---
:1995 Author Care Team Providers Name Role Phone KYE BROWN MD Primary Care Provider [phone] Allergies Code Code System Name Reaction Severity Status Onset 723 RxNorm Amoxicillin ? ? Active ? Penicillins ? ? Active ? Medications Name Status Start Date Stop Date ? ? acetaminophen 325 mg tablet Active ? Not available TAKE 1 TABLET BY MOUTH EVERY 6 TO 8 HOURS NEEDED Afluria Qd 2019- (36 mos up)(PF)60 mcg (15 mcg x4)/0.5 mL Acti ve ? Not available IM syringe albuterol sulfate HFA 90 mcg/actuation aerosol inhaler Active ? Not available azithromycin 250 mg tablet Active ? Not a vailable TAKE 2 TABLETS BY MOUTH TODAY, THEN TAKE 1 TABLET DAILY FOR 4 D AYS buspirone 10 mg tablet Active ? Not avail able TAKE 1 TABLET BY MOUTH 3 TIMES A DAY buspirone 15 mg tablet Active ? Not avail able carbamazepine 200 mg tablet Active ? Not available chlordiazepoxide 25 mg capsule Active ? N ot available ciprofloxacin 500 mg tablet Active ? Not available TAKE 1 TABLET BY MOUTH EVERY 12 HOURS FOR 3 DAYS clindamycin HCl 150 mg capsule Active ? N ot available TAKE 1 CAPSULE BY MOUTH EVERY 8 HOURS FOR 5 DAYS clindamycin HCl 300 mg capsule Active ? N ot available TAKE 1 CAPSULE BY MOUTH EVERY 8 HOURS FOR 7 DAYS clonazepam 0.5 mg tablet Active ? Not adalberto ilable TAKE 1 TABLET BY MOUTH EVERY DAY FOR 7 DAYS cyclobenzaprine 10 mg tablet Active ? Not available TAKE 1 TABLET TWICE A DAY, NEEDED FOR CHRONIC GENERALIZED PA IN. dicyclomine 10 mg capsule Active ? Not av ailable TAKE 1 CAPSULE BY MOUTH FOUR TIMES A DAY NEEDED
--- OUTSIDE RECORDS SUMMARY | 2022-01-23 00:03 | XMS_ITS | Encounter Summary ---
:1995 Author Care Team Providers Name Role Phone Moses Goode MD Primary Care Provider [phone] Reason for Visit None recorded. Assessment and Plan 1. Gestational diabetes mellitus, class A>1< ? US, obstetric, biophysical profile + non-stress test Discussion Note: None recorded.Patient educational handouts: No information available. Plan of Care Reminders Provider Appointments None recorded. ? ? Lab None recorded. ? ? Referral None recorded. ? ? Procedures None recorded. ? ? Surgeries None recorded. ? ? Imaging US, Obstetric, Biophysical Profile + [address] [place] [address] Non-stress Test Medications Name Start Date ? ? albuterol [...]
--- OUTSIDE RECORDS SUMMARY | 2022-01-23 00:03 | XMS_ITS | Encounter Summary ---
:1995 Author Care Team Providers Name Role Phone Moses Goode MD Primary Care Provider [phone] Reason for Visit OB visit OB [id number] EDC 02/13/2022 LMP unsure Assessment and Plan Assessment Note Patient is ___weeks . Discussed plan. 1. Gestational diabetes mellitus, class A>2< Discussion Note: None recorded.Patient educational handouts: No [...]
--- OUTSIDE RECORDS SUMMARY | 2022-01-23 00:03 | XMS_ITS | Encounter Summary ---
:1995 Author Care Team Providers Name Role Phone Moses Goode MD Primary Care Provider [phone] Reason for Visit None recorded. Assessment and Plan 1. Gestational diabetes mellitus, class A>1< ? non-stress test Discussion Note: None recorded.Patient educational handouts: No information available. Plan of Care Reminders Provider Appointments None recorded. ? ? Lab None recorded. ? ? Referral None recorded. ? ? Procedures None recorded. ? ? Surgeries None recorded. ? ? Imaging Non-stress Test 01/16/2022 [place] Medications Name Start Date ? ? albuterol [...] A DAY prednisone 20 mg tablet ? Slow Fe 142 mg (45 mg iron) tablet,extended
--- OUTSIDE RECORDS SUMMARY | 2022-01-23 00:03 | XMS_ITS | Encounter Summary ---
:1995 Author Care Team Providers Name Role Phone Moses Goode MD Primary Care Provider [phone] Reason for Visit None recorded. Assessment and Plan 1. Gestational diabetes mellitus, class A>1< ? non-stress test Discussion Note: None recorded.Patient educational handouts: No information available. Plan of Care Reminders Provider Appointments None recorded. ? ? Lab None recorded. ? ? Referral None recorded. ? ? Procedures None recorded. ? ? Surgeries None recorded. ? ? Imaging Non-stress Test 01/12/2022 [place] Medications Name Start Date ? ? albuterol [...]
--- OUTSIDE RECORDS SUMMARY | 2022-01-23 00:03 | XMS_ITS ---
:1995 Author Care Team Providers Name Role Phone KYE BROWN MD Primary Care Provider [phone] Allergies Code Code System Name Reaction Severity Status Onset 723 RxNorm Amoxicillin ? ? Active ? Penicillins ? ? Active ? Medications Name Status Start Date Stop Date ? ? acetaminophen 300 mg-codeine 30 mg tablet Completed ? 08/27/2019 acetaminophen 325 mg tablet Completed ? 08/09 Afluria Qd 2020-21 (36 mos up)(PF)60 mcg (15 Completed ? 03/14/2020 mcg x4)/0.5 mL IM syringe albuterol sulfate HFA 90 mcg/actuation aerosol Active ? Not available inhaler aripiprazole 10 mg tablet Completed ? 2020 aripiprazole 5 mg tablet Completed ? 021 azithromycin 250 mg tablet Completed ? 07/04 Benadryl Completed ? 03/14/2020 Benadryl 25 mg capsule Completed ? 1 take 2 capsule by oral route every 4 - 6 hours as needed benztropine 1 mg tablet Completed ? 02/07/20 21 biotin Completed ? 03/14/2020 buspirone 10 mg tablet Completed ? 1 TAKE 1 TABLET BY MOUTH 3 TIMES A DAY buspirone 15 mg tablet Completed ? 2 TAKE 1 TABLET BY MOUTH 3 TIMES A DAY. buspirone 5 mg tablet Completed 09/15/2014 05/03/2017 take 1 tablet by oral route 3 times every day carbamazepine 200 mg tablet Completed ? 04/11 cefdinir 300 mg capsule Completed ? 09/16/19 15 take 1 capsule by oral route every 12 hours Celexa 10 mg tablet Completed ? 09/15/2014 take 1 tablet by oral route every day cephalexin 250 mg capsule Completed ? 2021
--- OUTSIDE RECORDS SUMMARY | 2022-01-23 00:03 | XMS_ITS ---
:1995 Author Care Team Providers Name Role Phone Livan Pickering Primary Care Provider Unavailable Allergies Code Code System Name Reaction Severity Status Onset 723 RxNorm Amoxicillin ? ? Active ? Penicillins ? ? Active ? Medications Name Status Start Date Stop Date ? ? acetaminophen 325 mg tablet Active ? Not available TAKE 1 TABLET BY MOUTH EVERY 6 TO 8 HOURS NEEDED Afluria Qd 2019- (36 mos up)(PF)60 mcg (15 mcg x4)/0.5 Active ? Not available mL IM syringe ciprofloxacin 500 mg tablet Active ? Not available clindamycin HCl 150 mg capsule Active ? N ot available TAKE 1 CAPSULE BY MOUTH EVERY 8 HOURS FOR 5 DAYS clindamycin HCl 300 mg capsule Active ? N ot available TAKE 1 CAPSULE BY MOUTH 3 TIMES A DAY FOR 5 DAYS clonazepam 0.5 mg tablet Active ? Not adalberto ilable TAKE 1 TABLET BY MOUTH EVERY DAY FOR 7 DAYS cyclobenzaprine 10 mg tablet Active ? Not available TAKE 1 TABLET TWICE A DAY, NEEDED FOR CHRONIC GENERALIZED PA IN. dicyclomine 10 mg capsule Active ? Not av ailable fluoxetine 10 mg capsule Active ? Not adalberto ilable TAKE 1 CAPSULE BY MOUTH ONCE A DAY fluoxetine 20 mg capsule Active ? Not adalberto ilable fluoxetine 40 mg capsule Active ? Not adalberto ilable Fluzone Quad (PF) 60 mcg (15 mcg x 4)/0.5 mL IM syring e Active ? Not available TO BE ADMINISTERED BY PHARMACIST FOR IMMUNIZATION GaviLyte-N 420 gram oral solution Active ? Not available TAKE DIRECTED BY OFFICE hydrocodone 5 mg-acetaminophen 325 mg tablet Completed ? 03/15/2020 TAKE 1 TABLET BY MOUTH EVERY 6 HOURS
--- OUTSIDE RECORDS SUMMARY | 2022-01-23 00:03 | XMS_ITS | Encounter Summary ---
:1995 Author Care Team Providers Name Role Phone Moses Goode MD Primary Care Provider [phone] Reason for Visit None recorded. Assessment and Plan 1. Impaired glucose tolerance in pregna ncy Per , pt needs diet teaching today wh ile pt is in office. Pt is non-compliant with appointments. Did not keep 3hr GTT appoi ntment and just picked up glucometer to start checking sugars BID instead. Only has 1 fasting level so far of 87. is concerned about patient having GDM r/t 42 pound we ight gain so far in . Ultrasound ordered r/t weight gain, but pt cannot s chedule yet as she has to wait to get her schedule. Diet teaching completed with p t in office. Went over ideal ranges for FBS and pp BS. Went over carb counting and c arb ranges for each meal/snack. Gave ideas for foods to eat for meals/snacks. Discu ssed drink options and to avoid soda and juice. Told pt she can go online to ADA for meal options or to look up low carb meal recipes online for ideas as well. Told p t to continue checking BS QID. Per , to continue normal diet over the weekend an d call or email her sugars to us on Saturday to see what sugars look like to see if she rules in for GDM or not. Pt aware if sugars are abnormal that would tell us she has diabetes and then she would start applying the diet changes we went over at appt to day. Pts questions were answered and pt verbalized understanding. MARY fong Discussion Note: None recorded.Patient educational handouts: No information available. Plan of Care Reminders Provider Appointments None recorded. ? ? Lab None recorded. ? ? Referral None recorded. ? ? Procedures None recorded. ? ? Surgeries None recorded. ? ? Imaging None recorded. ? ? Medications
--- OUTSIDE RECORDS SUMMARY | 2022-01-23 00:03 | XMS_ITS | Encounter Summary ---
:1995 Author Care Team Providers Name Role Phone Moses Goode MD Primary Care Provider [phone] Reason for Visit OB visit OB [id number] EDC 02/13/2022 LMP 04/04/2021 Assessment and Plan Assessment Note Patient is _35__weeks . Discuss ed plan. 1. screening ? drug screen, urine 2. Routine care Discussion Note: None recorded.Patient educational handouts: No information available. Plan of Care Reminders Provider Appointments None recorded. ? ? Lab Drug Screen, Urine 01/10/2022 [place] Referral None recorded. ? ? Procedures None [...]
--- OUTSIDE RECORDS SUMMARY | 2022-01-23 00:03 | XMS_ITS | Encounter Summary ---
:1995 Author Care Team Providers Name Role Phone Moses Goode MD Primary Care Provider [phone] Reason for Visit None recorded. Assessment and Plan 1. Gestational diabetes mellitus, class A>1< ? US, obstetric, follow-up Discussion Note: None recorded.Patient educational handouts: No information available. Plan of Care Reminders Provider Appointments None recorded. ? ? Lab None recorded. ? ? Referral None recorded. ? ? Procedures None recorded. ? ? Surgeries None recorded. ? ? Imaging US, Obstetric, Follow-up 12/26/2021 [place] Medications Name Start Date ? ? albuterol [...]
--- OUTSIDE RECORDS SUMMARY | 2022-01-23 00:03 | XMS_ITS | Encounter Summary ---
:1995 Author Care Team Providers Name Role Phone Moses Goode MD Primary Care Provider [phone] Reason for Visit None recorded. Assessment and Plan 1. Gestational diabetes mellitus, class A>1< ? non-stress test Discussion Note: None recorded.Patient educational handouts: No information available. Plan of Care Reminders Provider Appointments None recorded. ? ? Lab None recorded. ? ? Referral None recorded. ? ? Procedures None recorded. ? ? Surgeries None recorded. ? ? Imaging Non-stress Test 01/10/2022 [place] Medications Name Start Date ? ? albuterol [...]
--- OUTSIDE RECORDS SUMMARY | 2022-01-23 00:04 | XMS_ITS | Encounter Summary ---
:1995 Author Care Team Providers Name Role Phone Moses Goode MD Primary Care Provider [phone] Reason for Visit None recorded. Assessment and Plan 1. and drug dependence ? US, obstetric, follow-up Discussion Note: None recorded.Patient educational handouts: No information available. Plan of Care Reminders Provider Appointments None recorded. ? ? Lab None recorded. ? ? Referral None recorded. ? ? Procedures None recorded. ? ? Surgeries None recorded. ? ? Imaging US, Obstetric, Follow-up 11/15/2021 [place] Medications Name Start Date ? ? [...] Slow Fe 142 mg (45 mg iron) tablet,ext
--- OUTSIDE RECORDS SUMMARY | 2022-01-23 00:04 | XMS_ITS | Encounter Summary ---
:1995 Author Care Team Providers Name Role Phone Moses Goode MD Primary Care Provider [phone] Reason for Visit OB visit OB [id number] EDC 02/13/2022 LMP 04/04/2021 Assessment and Plan Assessment Note Patient is _27__weeks . Discuss ed plan. 1. Routine care Discussion Note: None recorded.Patient educational [...] DAY OneTouch Verio test strips ? TEST BLO
--- OUTSIDE RECORDS SUMMARY | 2022-01-23 00:04 | XMS_ITS ---
:1995 Author Care Team Providers Name Role Phone KYE BROWN MD Primary Care Provider [phone] Allergies Code Code System Name Reaction Severity Status Onset 723 RxNorm Amoxicillin ? ? Active ? 2670 RxNorm Codeine ? ? Active ? Penicillins ? ? Active ? Medications Name Status Start Date Stop Date ? ? azithromycin 250 mg tablet Completed ? 11/03 Bactrim DS 800 mg-160 mg tablet Completed ? 11/03/2018 Take 1 tablet every 12 hours by oral route. Benadryl 25 mg capsule Active ? Not avail able Take 1 capsule by oral route as directed. buspirone 7.5 mg tablet Active ? Not avai lable clindamycin HCl 300 mg capsule Active ? N ot available erythromycin with ethanol 2 % topical solution Active ? Not available hydroxyzine HCl 10 mg tablet Active ? Not available lamotrigine 100 mg tablet Active ? Not av ailable lamotrigine 25 mg tablet Active ? Not adalberto ilable metronidazole 0.75 % (37.5 mg/5 gram) vaginal gel Active ? Not available ondansetron HCl 8 mg tablet Active ? Not available oseltamivir 75 mg capsule Active ? Not av ailable + DHA 28 mg iron-975 mcg-200 mg oral pack Active ? Not available Take 1 pack every day by oral route before meals. Prenate Chewable Active ? Not available 1 tablet once a day prochlorperazine maleate 5 mg tablet Active ? Not available Pyridium 200 mg tablet Active ? Not avail able Take 1 tablet 3 times a day by oral route. sertraline 50 mg tablet Active ? Not avai lable sulfamethoxazole 800 mg-trimethoprim 160 mg tablet Active ? Not available venlafaxine ER 37.5 mg capsule,extended re
--- NOTE | 2022-01-23 00:47 | LDADM ---
This patient, Alexandrea Craig, was admitted to Labor/Delivery/Recovery 104 on 01/23/22 at 00:01. Plans for labor, pain management and were discussed with patient. Patient/family oriented to hospital policies and general routines including ID bracelet, bed and alarms, visiting hours, pain management, procedures, bathroom and other care routines, personal items, smoking policy, room service/diet and guest tray routines, security routines, and visiting hours. Patient/Family are encouraged to report perceived risks to care and to ask questions if they do not understand what they are told or what they should do. See OBIX for further documentation.
[2022-01-23 00:50] LABS: Basophils Percent Auto 0.3 % (0.2-1.2); Eosinophils Absolute Auto 0.2 K/mm3 (0-0.3); Eosinophils Percent Auto 2.6 % (0-4.4); Hematocrit 33.3 % (37.0-47.0); Hemoglobin 10.9 g/dL (12.0-15.0); Immature Granulocyte Absolute 0.05 K/mm3 (0.00-0.031); Immature Granulocyte Percent A 0.8 % (0-0.5); Mean Corpuscular HGB Conc 32.7 g/dl (32-36); Mean Corpuscular Volume 91.7 fl (80-100); Mean Platelet Volume 11.2 fl (7.4-10.4); Monocytes Absolute Auto 0.2 K/mm3 (0.1-0.6); Monocytes Percent Auto 3.1 % (2.6-8.5); Neutrophils Absolute Auto 4.9 K/mm3 (1.3-6.7); Neutrophils Percent Auto 76.2 % (45.5-73.1); Platelet Count Result 179 k/mm3 (150-375); Red Blood Count 3.63 M/mm3 (4.2-5.4); Red Cell Distribution Width 15.8 % (11.5-14.5); White Blood Count 6.5 K/mm3 (4.5-10.0)
[2022-01-23] MEDS: LACTATED RINGERS 1,000 ML 125 ML IV CONT ×4 (01:08→15:53)
[2022-01-23] MEDS: OXYTOCIN 30 UNITS/NS 500 ML 30 UNITS/500 ML BAG IV CONT (01:08)
[2022-01-23] MEDS: CLINDAMYCIN 900 MG/D5W 50 ML 900 MG/50 ML PIGGYBACK 50 MG IVPB (01:09)
[2022-01-23 01:23] LABS: Glucose Point of Care 94 mg/dl (65-105)
[2022-01-23 01:54] LABS: Amphetamine Screen Urine Negative (Negative); Barbiturate Screen Urine Negative (Negative); Benzodiazepines Screen Urine Negative (Negative); Cannabinoid Screen Urine Positive (Negative); Cocaine Screen Urine Negative (Negative); Methadone Screen Urine Negative (Negative); Opiate Screen Urine Negative (Negative); Phencyclidine Screen Urine Negative (Negative)
--- NOTE | 2022-01-23 05:04 | WPDANESEPP ---
Anes - Eval Pre Procedure Procedure: Labor epidural Date/Time: 01/23/22 05:04 Surgeon: Ginger Preop Diagnosis: Abdominal pain with contractions Pre Op Diagnosis: IOL Patient Data Age: 26 Gender: F Height: 1.55 m Weight: 100 kg Last Vital Signs Temp 98 F 01/23/22 00:20 Pulse 110 H 01/23/22 05:01 BP 107/78 01/23/22 05:01 O2 Del Method Room Air 01/23/22 00:43 Allergies Allergy/AdvReac Type Severity Reaction Status Date / Time amoxicillin Allergy Unknown Hives Verified 01/16/22 14:21 Penicillins Allergy Unknown Hives Verified 01/16/22 14:21 Home Medications Medication Instructions Recorded Confirmed Type fluoxetine 20 mg capsule 40 mg PO DAILY 11/03/19 01/23/22 History ferrous sulfate 325 mg (65 mg 325 mg PO DAILY 01/16/22 01/16/22 History iron) tablet,delayed release olanzapine 2.5 mg tablet (Zyprexa) 2.5 mg PO DAILY 01/16/22 01/16/22 History olanzapine 5 mg tablet (Zyprexa) 5 mg PO HS 01/16/22 01/16/22 History prenat.vits,francisco,aov-xofr-olcbt 1 tablet PO DAILY 01/16/22 01/16/22 History albuterol sulfate 90 mcg/actuation 1 puff inhalation PRN PRN 01/23/22 01/23/22 History aerosol inhaler shortness of breath or wheezing Laboratory Tests 01/23/22 01/23/22 01/23/22 00:36 00:36 00:36 WBC 6.5 K/mm3 K/mm3 (4.5-10.0) RBC 3.63 M/mm3 L M/mm3 (4.2-5.4) Hgb 10.9 g/dL L g/dL (12.0-15.0) Hct 33.3 % L % (37.0-47.0) MCV 91.7 fl fl (80-100) MCH 30.0 pg pg (26-34) MCHC 32.7 g/dl g/dl (32-36) RDW 15.8 % H % (11.5-14.5) Plt Count 179 k/mm3 k/mm3 (150-375) MPV 11.2 fl H fl (7.4-10.4) Immature Gran % (Auto) 0.8 % H % (0-0.5) Neut % (Auto) 76.2 % H % (45.5-73.1) Lymph % (Auto) 17.0 % L % (18.3-44.2) Hartley % (Auto) 3.1 % % (2.6-8.5) Eos % (Auto) 2.6 % % (0-4.4) Baso % (Auto) 0.3 % % (0.2-1.2) Lymph # (Auto) 1.10 K/mm3 K/mm3 (0.9-3.2) Hartley # (Auto) 0.2 K/mm3 K/mm3 (0.1-0.6) Eos # (Auto) 0.2 K/mm3 K/mm3 (0-0.3) Baso # (Auto) 0.0 K/mm3 K/mm3 (0.0-0.1) Abs Immat Gran (auto) 0.05 K/mm3 H K/mm3 (0.00-0.031) Absolute Neuts (auto) 4.9 K/mm3 K/mm3 (1.3-6.7) Absolute Nucleated RBC 0.0 K/mm3 K/mm3 (0.0-0.012) Nucleated RBC % 0.0 % % (0.0-0.2) POC Capillary Glucose Urine Opiates Screen Urine Methadone Screen Ur Barbiturates Screen Ur Phencyclidine Scrn Ur Amphetamine Screen U Benzodiazepines Scrn Urine Cocaine Screen U Cannabinoids Screen RPR Pending Blood Type O Positive Antibody Screen Negative 01/23/22 01/23/22 00:36 01:18 WBC RBC Hgb Hct MCV MCH MCHC RDW Plt Count MPV Immature Gran % (Auto) Neut % (Auto) Lymph % (Auto) Hartley % (Auto) Eos % (Auto) Baso % (Auto) Lymph # (Auto) Hartley # (Auto) Eos # (Auto) Baso # (Auto) Abs Immat Gran (auto) Absolute Neuts (auto) Absolute Nucleated RBC Nucleated RBC % POC Capillary Glucose 94 mg/dl mg/dl (65-105) Urine Opiates Screen Negative (Negative) Urine Methadone Screen Negative (Negative) Ur Barbiturates Screen Negative (Negative) Ur Phencyclidine Scrn Negative (Negative) Ur Amphetamine Screen Negative (Negative) U Benzodiazepines Scrn Negative (Negative) Urine Cocaine Screen Negative (Negative) U Cannabinoids Screen Positive A (Negative) RPR Blood Type Antibody Screen : gestational age HCG: posi
[2022-01-23 05:31] LABS: Glucose Point of Care 134 mg/dl (65-105)
--- NOTE | 2022-01-23 05:43 | PC.NURSE ---
0535 spoke to ROYAL Keys to update her on patient's blood sugar of 134. Orders to recheck blood glucose in 2 hours.
--- NOTE | 2022-01-23 05:45 | PC.NURSE ---
Patient consumed a sprite to drink at 0400. Blood glucose at 0530 was 134, CNM was notified. Orders to recheck sugar at 0700
--- NOTE | 2022-01-23 06:06 | PC.NURSE ---
0600 ROYAL Enrique called L&D to inform RN that no sensitivity test was ran on patient's allergies and would like vancomycin to be given to patient before AROM.
--- NOTE | 2022-01-23 06:14 | PC.NURSE ---
0110 Spoke to ROYAL Enrique about patient's allergies. Orders to treat GBS with Clindamycin.
[2022-01-23 07:50] LABS: Glucose Point of Care 91 mg/dl (65-105)
[2022-01-23] MEDS: ONDANSETRON INJ 4 MG/2 ML VIAL IV PUSH (08:46)
[2022-01-23 10:19] LABS: Rapid Plasma Reagin Non-Reactive (NonReactive)
[2022-01-23 12:24] LABS: Glucose Point of Care 68 mg/dl (65-105)
[2022-01-23] MEDS: LORATADINE 10 MG TABLET PO (13:33)
[2022-01-23 14:14] LABS: Glucose Point of Care 62 mg/dl (65-105)
--- NOTE | 2022-01-23 16:00 | WPDOBADMIT ---
Obstetrics - Admit Note Admission Note: 26y/o at 37 weeks here for induction of labor d/t uncontrolled GDM and spotty care. Last EFW was 5lbs 4 weeks ago. She also has a history of drug and alcohol use. Most recent uds did show thc. record reviewed. No pertinent additions to the history and/or any subsequent changes in the physical findings that are not consistent with the expected course of the were found. Additions to the history and/or subsequent changes in the physical findings follow. None.
--- NOTE | 2022-01-23 16:02 | PM.IMHP ---
H&P: HPI History of Present Illness Date/Time: 01/23/22 16:02 Chief Complaint: Induction of labor Review of Systems Review of Systems: All systems reviewed & are unremarkable except as noted in HPI and below Constitutional: Constitutional: Reports as per HPI and Reports no additional constitutional complaints Eyes: Eyes: Reports as per HPI ENT: Reports system reviewed and no additional complaints, except as documented Cardiovascular: Cardiovascular: Reports as per HPI Respiratory: Respiratory: Reports as per HPI Gastrointestinal: Gastrointestinal: Reports as per HPI Genitourinary: Genitourinary: Reports no additional female genitourinary complaints Musculoskeletal: Musculoskeletal: Reports no additional musculoskeletal complaints Integumentary/Breasts: Skin/Breast: Reports system reviewed and no additional complaints, except as docu Neurologic: Reports system reviewed and no additional complaints, except as documented Psychiatric: Psychiatric: Reports no additional psychiatric complaints Endocrine: Endocrine: Reports no additional endocrine complaints Hematologic/Lymphatic: Hematologic/Lymphatic: Reports no additional hematologic/lymphatic complaints Allergic/Immunologic: Allergic/Immunologic: Reports no additional allergic/immunologic complaints [facility] Past Medical History Medical History Anxiety Asthma Depression Diabetes in Eczema History of anxiety History of seizures two seizures in the past and ; continues to take medications Morbid obesity Family History Family History Other Adopted Unknown family medical history Social History Social History (Updated 06/16/20 @ 14:18 by Diandra Soler MA) Social History: former smoker Years smoked: 1 Smoking status: Current every day smoker Tobacco type: e-cigarettes/vaping Second hand tobacco smoke exposure: No Alcohol intake: never Substance use: current Other substance usage details: denies any other drug use Last use: 01/16/22 Lack of Transportation: No Lack of Food: Never True Current Housing: I Do Not Have Housing Concerned About Future Housing: No Difficulty Paying Gas/Electric Bills: No Difficulty Paying for Meds: No Currently Unemployed: No Education: High School Diploma/GED Difficulty w/ Childcare or Family Care: No Gender identity (if verbalized by the patient): Female Spiritual care concerns: No Meds Home Medications and Allergies Home Medications Medication Instructions Recorded Confirmed Type fluoxetine 20 mg capsule 40 mg PO DAILY 11/03/19 01/23/22 History ferrous sulfate 325 mg (65 mg 325 mg PO DAILY 01/16/22 01/16/22 History iron) tablet,delayed release olanzapine 2.5 mg tablet (Zyprexa) 2.5 mg PO DAILY 01/16/22 01/16/22 History olanzapine 5 mg tablet (Zyprexa) 5 mg PO HS 01/16/22 01/16/22 History prenat.vits,francisco,erv-nkug-wqmfw 1 tablet PO DAILY 01/16/22 01/16/22 History albuterol sulfate 90 mcg/actuation 1 puff inhalation PRN PRN 01/23/22 01/23/22 History aerosol inhaler shortness of breath or wheezing Allergies Allergy/AdvReac Type Severity Reaction Status Date / Time amoxicillin Allergy Unknown Hives Verified 01/16/22 14:21 Penicillins Allergy Unknown Hives Verified 01/16/22 14:21 Vital Signs Vital Signs - 24 hr 01/23/22 00:43 01/23/22 00:20 01/23/22 00:31 Temperature 98 F Pulse Rate 90 88 Blood Pressure 130/67 127/60 Pulse Oximetry Oxygen Delivery Room Air 01/23/22 00:46 01/23/22 01:01 01/23/22 01:16 Temperature Pulse Rate 84 87 86 Blood Pressure 129/54 L 116/58 L 111/65 Pulse Oximetry Oxygen Delivery 01/23/22 01:31 01/23/22 01:46 01/23/22 02:01 Temperature Pulse Rate 86 92 89 Blood Pressure 113/66 123/76 132/74 Pulse Oximetry Oxygen Delivery 01/23/22 02:31 11
--- NOTE | 2022-01-23 17:08 | PM.OBPRVD ---
OB - Delivery Note Procedure Delivery date: 01/23/22 Procedure: Events: Gestational Diabetes and Other (Limited care) Induction method: Per Pitocin Protocol Delivery monitor: External FHT, External Uterine and Internal Uterine Route of delivery: Episiotomy description: None Laceration Description: None Quantitative Blood Loss (ml): 182 Anesthesia type: Epidural Narrative: Spontaneous delivery with maternal pushing. placed on maternal abdomen. Cord clamped and cut at the 1 minute felecia at request of nursery. Cord gasses collected and handed off to staff. Baby Date of : 01/23/22 Time of : 16:50 Weeks of gestation at delivery: 37 Infant gender: Male Weight (pounds): 7 Weight (ounces): 6 presentation: vertex position: Left Occiput Anterior Placenta delivery description: Spontaneous Cord Vessel Description: 3 Vessels and Delayed Cord Clamping
[2022-01-23] MEDS: BENZOCAINE 20% AER SPR (*SP) 56 GM CAN 1 SPRAY TOPICAL (18:31)
[2022-01-23] MEDS: ACETAMINOPHEN 325 MG TABLET 650 MG PO (18:31)
[2022-01-23] MEDS: WITCH HAZEL 40 PADS 1 PAD TOPICAL (18:31)
--- NOTE | 2022-01-23 18:48 | OBPPTRN ---
Patient transferred to post room #286 via W/C. Support person present. Oriented to unit, room, information board, rooming in, admission packet and security measures. Patient verbalizes understanding.
[2022-01-24 04:30] VITALS: BP 121/59; PULSE 79; RESP 18; TEMP 36.9; O2SAT 98
[2022-01-24] MEDS: IBUPROFEN 600 MG TABLET PO (04:44)
--- NOTE | 2022-01-24 07:29 | PM.OBPNVD ---
OB - PN: Subj Subjective Date/time seen: 01/24/22 07:29 s/p vaginal delivery day 1 OB - PN: Obj Data Labs CBC & Chem 7: 01/23/22 00:36 Labs: Laboratory Results - last 24 hr 01/23/22 01/23/22 01/23/22 00:36 07:48 12:10 POC Capillary Glucose 91 68 RPR Non-reactive 01/23/22 14:10 POC Capillary Glucose 62 L RPR OB - PN A/P Plan day: 1 Plan: routine care Time Spent With Patient Time: Total time spent is greater than 50% in coordination of care (as documented) at patient's floor/unit and/or counseling patient: Review of Systems Review of Systems: All systems reviewed & are unremarkable except as noted in HPI and below Exam Const: General: cooperative, healthy appearing and comfortable
[2022-01-24] MEDS: ACETAMINOPHEN 325 MG TABLET 650 MG PO ×2 (07:59→15:46)
[2022-01-24] MEDS: DOCUSATE SODIUM 100 MG CAPSULE PO (07:59)
[2022-01-24] MEDS: MULTIVIT/MIN/PREN/FOL AC/IRON TABLET 1 TAB PO (07:59)
[2022-01-24 08:15] VITALS: BP 108/62; PULSE 75; RESP 18; TEMP 37.1; O2SAT 99
--- NOTE | 2022-01-24 10:48 | WPDANLDPN2 ---
Anes-Prog Note L&D Date/Time: 01/24/22 10:48 Comfortable throughout: labor and delivery Neuraxial method: epidural Epidural/Spinal procedure site: clean & non-tender Neuro status: Neuro function grossly intact. Cardiovascular status: normal Respiratory status: normal Airway patency: baseline Mental status: baseline Post-Op hydration status: normal Vital Signs: Last Vital Signs Temp 37.1 C 01/24/22 08:15 Pulse 75 01/24/22 08:15 Resp 18 01/24/22 08:15 BP 108/62 01/24/22 08:15 Pulse Ox 99 01/24/22 08:15 O2 Del Method Room Air 01/23/22 19:00 Pain score (VAS): 0 Patient feedback: Patient satisfied with anesthetic care.
[2022-01-24] MEDS: KETOROLAC 30 MG/ML VIAL (*BKC) IV PUSH (11:01)
--- NOTE | 2022-01-24 11:25 | PCCCNOTE ---
Care Coordination met with pt. and FOB this morning to discuss discharge planning. Pt.'s current D/C plan is to return home with baby and FOB. Pt. states she has everything needed to safely bring baby home. Her MIL is obtaining a car seat today and will bring it to the hospital. Pt. will attempt to breast feed baby but is current with [facility] if needed. Pt. has no director of special services set up yet for baby. Pt. tested positive for cocaine during an appointment in August. She also tested positive for Marijuana at admission, baby tested positive with his urine drug screen. Umbilical cord screening is pending. Pt. states that her and FOB follow up with a family health nurse practitioner through [facility]. Pt. has two other children that she does not have custody of, they live with their father. CC spoke with Jennifer James at [facility] who states they will follow up with pt. and FOB within 5 days. Intake ID [id number].
[2022-01-24 11:36] VITALS: BP 115/66; PULSE 77; RESP 16; TEMP 36.4; O2SAT 99
[2022-01-24 15:35] VITALS: BP 129/78; PULSE 83; RESP 18; TEMP 36.8; O2SAT 100
--- NOTE | 2022-01-24 16:49 | PC.NURSE ---
[id number] Introductions were made, then consulted with patient to assess needs related to since she had called out because she couldn't get her infant to wake up and breastfeed. Reviewed skin to skin, change a diaper, demonstrated how to stimulate to wake and breastfeed. We also discussed the risks of using cannabis while and . After about 20 minutes of reviewed, educating and stimulating to breastfeed latched to the right breast using football positioning. Resources provided for inpatient and outpatient services, risk of using cannabis per ACOG guidelines and mom/baby guide. Mother voiced understanding of information and will call if there is a request for assistance. Reported to primary RN.
[2022-01-24 21:41] VITALS: BP 127/68; PULSE 79; RESP 18; TEMP 36.6; O2SAT 98
[2022-01-25 05:49] LABS: Hematocrit 28.4 % (37.0-47.0); Hemoglobin 9.1 g/dL (12.0-15.0)
[2022-01-25] MEDS: MULTIVIT/MIN/PREN/FOL AC/IRON TABLET 1 TAB PO (07:08)
[2022-01-25] MEDS: POLYSACCHARIDE IRON COMPLEX 150 MG CAPSULE PO (07:08)
[2022-01-25] MEDS: ACETAMINOPHEN 325 MG TABLET 650 MG PO (07:08)
[2022-01-25] MEDS: DOCUSATE SODIUM 100 MG CAPSULE PO (07:09)
[2022-01-25 08:10] VITALS: BP 128/74; PULSE 99; RESP 18; TEMP 37.6; O2SAT 99
--- NOTE | 2022-01-25 08:26 | PM.OBPNVD ---
OB - PN: Subj Subjective Date/time seen: 01/25/22 08:26 Patient comments: no complaints, pain well controlled and tolerating diet OB - PN: Obj Data Labs CBC & Chem 7: 01/25/22 04:57 Labs: Laboratory Results - last 24 hr 01/25/22 04:57 Hgb 9.1 L Hct 28.4 L OB - PN A/P Plan day: 2 Plan: routine care and discharge home Time Spent With Patient Time: Total time spent is greater than 50% in coordination of care (as documented) at patient's floor/unit and/or counseling patient: Exam Const: General: comfortable and no acute distress Resp: Effort & Inspection: normal respiratory effort Auscultation: no rales, no rhonchi and no wheezes Cardio: Rate: regular rate Heart sounds: no click, no murmurs and no rubs GI: GI Palp: Yes Soft to palpation and No Tenderness to palpation present (GI) Auscultation: normal bowel sounds Extrem: General: normal to inspection, no pedal edema and no calf tenderness
--- NOTE | 2022-01-25 08:27 | PM.OBPNVD ---
OB - PN: Subj Subjective Date/time seen: 01/25/22 08:27 Patient comments: no complaints, pain well controlled and tolerating diet OB - PN: Obj Data Labs CBC & Chem 7: 01/25/22 04:57 Labs: Laboratory Results - last 24 hr 01/25/22 04:57 Hgb 9.1 L Hct 28.4 L OB - PN A/P Plan day: 2 Plan: routine care and other (continue observation for severe anemia - cbc today) Time Spent With Patient Time: Total time spent is greater than 50% in coordination of care (as documented) at patient's floor/unit and/or counseling patient: Exam Const: General: comfortable and no acute distress Resp: Effort & Inspection: normal respiratory effort Auscultation: no rales, no rhonchi and no wheezes Cardio: Rate: regular rate Heart sounds: no click, no murmurs and no rubs GI: GI Palp: Yes Soft to palpation and No Tenderness to palpation present (GI) Auscultation: normal bowel sounds Extrem: General: normal to inspection, no pedal edema and no calf tenderness
--- NOTE | 2022-01-25 13:48 | PC.NURSE ---
[id number] Mother is feeding appropriately for growth of infant and understands stimulating to eat if needed. has had appropriate feedings in the last 24 hours meets the outcomes for weight, output and jaundice at this time. Mother states she is confident to continue attempting , pumping, and supplementing her at home or when to call for assistance and denies any additional assistance or education at this time. Reinforced understanding of milk production, transition of milk, signs of adequate intake, prevention/relief of engorgement, responsive after visualizing feeding cues, the different methods of stimulating infant to breastfeed 2-3 hours after the start of the last feeding, community resources, medication information reviewed per [employer], no drug use while /producing milk supply and when to call a provider using the resource of the mom and baby guide/[facility] website. Mother voiced understanding of the education shared. Reported to the primary RN.
--- NOTE | 2022-01-25 14:00 | PC.NURSE ---
Patient viewed the discharge video Mother & Baby Care, The First Two Weeks . Patient was given the opportunity and encouraged to ask questions. Patient verbalized understanding of information shared and has been given the mother/baby guide for home reference.
[2022-01-25] MEDS: TETANUS,DIPHTHERIA,AC PERTUSSIS ADULT (0.5 ML) BOOSTRIX IM (14:56)
[2022-01-25] MEDS: MEASLES,MUMPS,RUBELLA VACCINE 0.5 ML VIAL SUB-Q (15:00)
[2022-01-27 08:44] VITALS: BP 136/81; PULSE 79; RESP 20; TEMP 36.9; O2SAT 99
--- NOTE | 2022-02-18 21:26 | PM.OBDSVD ---
DS: Admitting Diagnosis Discharge Date 01/25/22 Admitting Diagnosis term OB - DS: Summary OB Procedures : None OB Procedures Intrapartum: Spontaneous Vag Delivery OB Procedures: : None Time Spent with Patient Time attestation: Total time spent providing and/or coordinating discharge services: DS: Data Data Completed and Pending Completed studies during hospitalization: Pending at discharge 01/23/22 19:02 Surgical [PTH] Routine Discharge Plan Discharge Consulting providers: Kathi Keys ; Suyapa Rivera ; Elan Kingsley ; Mala Ken Discharging Clinician: Roxane Miles Patient Disposition: Home, Self-Care Activity: pelvic rest Diet: regular Discharge Instructions: Education: Mom and Baby Guide Given to: Mother Follow-Up: Call your delivering provider's office for an appointment to be seen in: 6 Weeks Mom and baby should come to the [facility] for the follow-up appointment. Appointment Date/Time: January 27, 2022 at 9:00 am What to expect at your follow-up visit: Blood Pressure Check Physical Assessment Call [phone] if you are unable to keep your appointment time. BREAST CARE: * Wear a snug supportive bra. * For engorgement discomfort: Breast Feeding: * Apply warm moist washcloths * Express milk as needed to relieve engorgement * Wear loose clothing Bottle Feeding: * May apply ice packs * For sore nipples: * Identify correct latch-on * Apply warm moist washcloths before and after nursing * Air dry nipples after nursing * May apply Lansinoh cream to nipples EPISIOTOMY/PERINEAL CARE: * Until bleeding stops, use your fransico bottle after urinating * Change your pad frequently throughout the day * You may take sitz baths several times a day (fill your bathtub with warm water and soak for 20 minutes.) Do NOT bathe in the water * No tub baths until seen by your physician - You may shower ACTIVITY: * Rest as much as possible. * Do not exercise or lift anything heavier than your baby (such as laundry or other children.) * Avoid stairs or driving as much as possible. * Do not put anything into the vagina. No douching, tampons, or sexual activity until seen by physician. NOTIFY PHYSICIAN IF YOU HAVE ANY QUESTIONS OR IF ANY OF THE FOLLOWING SYMPTOMS OCCUR: * If your episiotomy or incision becomes red, swollen, or more painful than what you have experienced in the hospital. * If your vaginal bleeding becomes foul smelling. * If your vaginal bleeding becomes more heavy than a period or if your bleeding changes from pink to bright red. However, you may pass an occasional walnut-sized clot once or twice for the first week . * If you experience a sharp, shooting pain in you calves. * If you discover a hard, reddened area on your breast or if you experience flu-like symptoms. DIET: * Eat regular, well-balanced meals. * Drink plenty of fluids daily. If , drink to thirst. Patient Instructions: Antibiotic Form, Caring for Your Baby (DC) Stand Alone Forms: General Discharge Information Follow-up/Referrals: Roxane Miles MD [Physician] - Discharge Medications: Continued fluoxetine 20 mg capsule 40 mg PO DAILY olanzapine [Zyprexa] 5 mg Tablet 5 mg PO HS olanzapine [Zyprexa] 2.5 mg Tablet 2.5 mg PO DAILY ferrous sulfate 325 mg (65 mg iron) Tablet,Delayed Release (Dr/Ec) 325 mg PO DAILY prenat.vits,francisco,[id number] Tablet 1 tablet PO DAILY albuterol sulfate 90 mcg/actuation HFA aerosol inhaler 1 puff INHALATION PRN PRN (Reason: shortness of breath or wheezing) Date of admission: 01/23/22 00:01 Primary Care Provider: PHYSICIAN NOT ON STAFF,NONSTAFF Admitting Provider: Roxane Miles Attending physician on admission: Roxane Miles Condition: Stable
== END 2022-01-25 15:17 | disposition home or self-care (01) | DRG 560 ==
LOC: ANHLDR 00:01 → ANHOB2 19:01
PROVIDERS: Advanced Practice Midwife; Admitting Provider Obstetrics & Gynecology; Visit Provider Obstetrics & Gynecology
DX: O24.429 Gestational diabetes mellitus in childbirth, unspecified control (principal); O60.23X0 Term delivery with preterm labor, third trimester, not applicable or unspecified; O99.824 Streptococcus B carrier state complicating childbirth; Z3A.37 37 weeks gestation of pregnancy; Z37.0 Single live birth; Z23 Encounter for immunization
CPT/HCPCS: 36415; 80307; 82948; 85014; 85018; 85025; 86592; 86850; 86900; 86901; 88307; 90471; 90686; 90710; 90715; A9270; G0008; J1885; J2405; J2590; J2795; J3370; J7120

== ENCOUNTER 2022-06-21 13:33 | Emergency (ER) | payer OTHER, SELFPAY ==
[2022-06-21 13:38] VITALS: BP 125/71; PULSE 53; RESP 16; TEMP 36.2; O2SAT 100
[2022-06-21 14:06] LABS: Basophils Absolute Auto 0.1 K/mm3 (0.0-0.1); Eosinophils Absolute Auto 0.2 K/mm3 (0-0.3); Hematocrit 32.5 % (37.0-47.0); Hemoglobin 11.2 g/dL (12.0-15.0); Immature Granulocyte Absolute 0.03 K/mm3 (0.00-0.031); Immature Granulocyte Percent A 0.3 % (0-0.5); Lymphocytes Absolute Auto 1.78 K/mm3 (0.9-3.2); Mean Corpuscular HGB Conc 34.5 g/dl (32-36); Mean Corpuscular Hemoglobin 29.8 pg (26-34); Mean Corpuscular Volume 86.4 fl (80-100); Mean Platelet Volume 10.3 fl (7.4-10.4); Monocytes Absolute Auto 0.5 K/mm3 (0.1-0.6); Monocytes Percent Auto 5.6 % (2.6-8.5); Neutrophils Absolute Auto 6.3 K/mm3 (1.3-6.7); Neutrophils Percent Auto 71.1 % (45.5-73.1); Platelet Count Result 287 k/mm3 (150-375); Red Blood Count 3.76 M/mm3 (4.2-5.4); Red Cell Distribution Width 13.1 % (11.5-14.5); White Blood Count 8.9 K/mm3 (4.5-10.0)
--- NOTE | 2022-06-21 15:05 | ED.FEMALEGU ---
HPI - Female Genitourinary General Chief complaint: Vaginal Bleeding Stated complaint: VOV/r/o miscarriage Time Seen by Provider: 06/21/22 15:03 Source: patient Related Data Home Medications Medication Instructions Recorded Confirmed fluoxetine 20 mg capsule 40 mg PO DAILY 11/03/19 01/23/22 ferrous sulfate 325 mg (65 mg 325 mg PO DAILY 01/16/22 01/16/22 iron) tablet,delayed release olanzapine 2.5 mg tablet (Zyprexa) 2.5 mg PO DAILY 01/16/22 01/16/22 olanzapine 5 mg tablet (Zyprexa) 5 mg PO HS 01/16/22 01/16/22 prenat.vits,francisco,kxw-rbnz-irmwq 1 tablet PO DAILY 01/16/22 01/16/22 albuterol sulfate 90 mcg/actuation 1 puff inhalation PRN PRN 01/23/22 01/23/22 aerosol inhaler shortness of breath or wheezing Allergies Allergy/AdvReac Type Severity Reaction Status Date / Time amoxicillin Allergy Unknown Hives Verified 01/16/22 14:21 Penicillins Allergy Unknown Hives Verified 01/16/22 14:21 [facility] Past Medical History Medical History Anxiety Asthma Depression Diabetes in Eczema History of anxiety History of seizures two seizures in the past and ; continues to take medications Morbid obesity Family History Family History Other Adopted Unknown family medical history Social History Social History (Updated 06/16/20 @ 14:18 by Diandra Soler MA) Social History: former smoker Years smoked: 1 Smoking status: Current every day smoker Tobacco type: e-cigarettes/vaping Second hand tobacco smoke exposure: No Alcohol intake: never Substance use: current Other substance usage details: denies any other drug use Last use: 01/16/22 Lack of Transportation: No Lack of Food: Never True Current Housing: I Do Not Have Housing Concerned About Future Housing: No Difficulty Paying Gas/Electric Bills: No Difficulty Paying for Meds: No Currently Unemployed: No Education: High School Diploma/GED Difficulty w/ Childcare or Family Care: No Gender identity (if verbalized by the patient): Female Spiritual care concerns: No Exam : Speculum Exam - Vagina: normal appearance of the vagina and vaginal bleeding (Blood is oozing out of the os, 3 long Q-tip was enough to dry the whole vag) Speculum Exam - Cervix: normal appearance of the cervix and Cervical os closed Bimanual Exam- Adnexa, other: no masses Course Vital Signs Vital signs: Vital Signs Temperature 36.2 C L 06/21/22 13:38 Pulse Rate 53 L 06/21/22 13:38 Respiratory Rate 16 06/21/22 13:38 Blood Pressure 125/71 06/21/22 13:38 Pulse Oximetry 100 06/21/22 13:38 Oxygen Delivery Room Air 06/21/22 13:38 Temperature 36.2 C L 06/21/22 13:38 Pulse Rate 81 06/21/22 17:50 Respiratory Rate 16 06/21/22 17:50 Blood Pressure 112/71 06/21/22 17:50 Pulse Oximetry 99 06/21/22 17:50 Oxygen Delivery Room Air 06/21/22 13:38 MDM - Female Genitourinary MDM Narrative Medical decision making narrative: Patient presents with vaginal bleeding, 4 months , 2, para 1 0. Patient denies any trauma or recent strenuous physical activities. Physical examination was remarkable for mild vaginal bleeding otherwise normal vaginal exam. heart tone is 142 Blood work-up today showed hemoglobin of 11.2 compared to 9.09 January 2022, beta-hCG 87697.00 Threatened is my concern. Patient does not need any pelvic ultrasound at this time, heart tone is 142 which is within normal limits patient to be discharged to follow-up with [facility]. Differential Diagnosis Differential diagnosis: Likely other (Threatened , miscarriage) Lab Data 06/21/22 13:47 Labs: Lab Results 06/21/22 06/21/22 06/21/22 Range/Units 13:47 13:47 13:47 WBC 8.9 (4.5-10.0) K/mm3 RBC 3.76 L (4.2-5.4) M/mm3 Hgb 11.2 L (12.0-15.0) g/
[2022-06-21 17:50] VITALS: BP 112/71; PULSE 81; RESP 16; O2SAT 99
== END 2022-06-21 17:51 | disposition home or self-care (01) ==
PROVIDERS: Emergency Provider Emergency Medicine
DX: O20.0 Threatened abortion (principal); Z3A.00 Weeks of gestation of pregnancy not specified
CPT/HCPCS: 36415; 84702; 85025; 85461; 86850; 86900; 86901; 99283; 99284

== ENCOUNTER 2022-11-17 19:22 | Emergency (ER) | payer OTHER, SELFPAY ==
--- NOTE | ~2022-11-17 | US_ITS ---
US pelvic complete DATE: 11/18/2022 00:42 INDICATION: One-month patient with vaginal bleeding TECHNIQUE: Real-time imaging via transvaginal approach COMPARISON: None FINDINGS: There is fluid and soft tissue within the endometrial cavity, which measures up to 10.4 mm AP dimension. Retained products of conception are suspected. Endometritis is not excluded. Right ovary 2.1 x 2.7 x 2.9 cm, with vascular flow. Left ovary 2.9 x 2.2 x 1.7 cm, with vascular flow. No abnormal pelvic free fluid collection is detected. IMPRESSION: Mixed fluid and soft tissue within the endometrial cavity, most likely due to retained pr oducts of conception. Endometritis is not excluded. Reviewed, dictated and finalized at [facility]. Reviewed, dictated and finalized at [facility]. IMPRESSION: Mixed fluid and soft tissue within the endometrial cavity, most lik trevor due to retained products of conception. Endometritis is not excluded.
--- NOTE | ~2022-11-17 | CT_ITS ---
EXAMINATION: CT abdomen pelvis w con DATE: 11/17/2022 21:17 INDICATION: generalized pain TECHNIQUE: Computed tomography (CT) of the abdomen and pelvis was performed with 100 mL Omnipaque-350 intravenous contrast. Automated exposure control and iterative reconstruction technique were employe d. The dose-length product was 609.46 mGy-cm. COMPARISON: 02/13/2020. FINDINGS: Lower thorax: Unremarkable Liver: Normal. Biliary/Gallbladder: Cholelithiasis, without inflammatory changes or distention. Mild intra and extra hepatic bile duct dilation. Pancreas: No mass or duct dilation. Spleen: Normal. Adrenals:No mass. Kidneys: No suspicious mass, obstructing stone, or hydronephrosis. GI tract: Mild distal esophageal and gastric wall edema. No small or large bowel dilation. Surgically absent appendix. Mesentery/Peritoneum: No ascites, mass, or free air. Retroperitoneum: No mass. Pelvis: The urinary bladder is decompressed. Nondependent gas collection within the endometrial cavit y which is distended by fluid. Focal heterogeneous enhancement in the left side of the uterine body a nd fundus. Normal bilateral ovaries. Soft Tissues: Soft tissues and body wall unremarkable. Bones: No acute osseous finding. IMPRESSION: Cholelithiasis, without gallbladder inflammatory change. Mild esophagitis/gastritis. Mild intra and extrahepatic bile duct dilation, without obstructing stone or mass. Correlate with zaire iary labs. Gas and fluid within the endometrial cavity with heterogeneous enhancement in the left uterine body a nd fundus. Correlate with history or findings of endometritis/PID. Consider pelvic ultrasound for fur ther evaluation. Reviewed, dictated and finalized at [facility]. IMPRESSION: Cholelithiasis, without gallbladder inflammatory change. Mild esophagitis/gastritis. Mild intra and extrahepatic bile duct dilation, without obstructing stone or ma ss. Correlate with biliary labs. Gas and fluid within the endometrial cavity with heterogeneous enhancement in t he left uterine body and fundus. Correlate with history or findings of endometr itis/PID. Consider pelvic ultrasound for further evaluation.
[2022-11-17 19:23] VITALS: BP 125/75; PULSE 89; RESP 15; TEMP 36.4; O2SAT 100
--- NOTE | 2022-11-17 19:23 | ECG_ITS ---
Measurements Intervals Bernard Rate: 81 P: -34 ME: 140 QRS: 58 QRSD: 89 T: 49 QT: 370 QTc: 432 Interpretive Statements SINUS RHYTHM BASELINE ARTIFACT- I, II, AVR NORMAL ECG COMPARED TO ECG 02/24/2020 21:19:30 NO SIGNIFICANT CHANGES Electronically Signed On 11-18-2022 6:58:00 CDT by Cristóbal Moore D.O.
[2022-11-17 19:52] VITALS: O2SAT 100
[2022-11-17 20:09] LABS: Basophils Percent Auto 0.4 % (0.2-1.2); Eosinophils Absolute Auto 0.4 K/mm3 (0-0.3); Eosinophils Percent Auto 5.1 % (0-4.4); Hematocrit 26.7 % (37.0-47.0); Hemoglobin 8.5 g/dL (12.0-15.0); Immature Granulocyte Absolute 0.05 K/mm3 (0.00-0.031); Immature Granulocyte Percent A 0.7 % (0-0.5); Lymphocytes Absolute Auto 1.54 K/mm3 (0.9-3.2); Lymphocytes Percent Auto 21.2 % (18.3-44.2); Mean Corpuscular HGB Conc 31.8 g/dl (32-36); Mean Corpuscular Hemoglobin 29.9 pg (26-34); Mean Platelet Volume 9.4 fl (7.4-10.4); Monocytes Absolute Auto 0.3 K/mm3 (0.1-0.6); Monocytes Percent Auto 4.7 % (2.6-8.5); Neutrophils Absolute Auto 4.9 K/mm3 (1.3-6.7); Neutrophils Percent Auto 67.9 % (45.5-73.1); Platelet Count Result 344 k/mm3 (150-375); Red Blood Count 2.84 M/mm3 (4.2-5.4); Red Cell Distribution Width 14.4 % (11.5-14.5); White Blood Count 7.3 K/mm3 (4.5-10.0)
[2022-11-17 20:16] VITALS: BP 142/79; PULSE 88; RESP 15; O2SAT 96
[2022-11-17] MEDS: DICYCLOMINE HCL 10 MG CAPSULE PO (20:19)
[2022-11-17 20:20] LABS: Alanine Aminotransferase 38 U/L (6-35); Albumin Level 4.2 g/dL (3.5-5.1); Alkaline Phosphatase 134 U/L (38-126); Anion Gap 9 mmol/L (8-16); Aspartate Amino Transferase 104 U/L (14-36); Bilirubin,Total 0.4 mg/dL (0.2-1.3); Blood Urea Nitrogen 22 mg/dL (7-17); Calcium 9.2 mg/dL (8.4-10.2); Carbon Dioxide 26 mmol/L (22-30); Chloride 100 mmol/L (98-107); Estimated CRCL calculation 102 ml/min; Estimated Glomerular Filt Rate > 60; Glucose 98 mg/dL (65-110); Sodium 135 mmol/L (137-145)
[2022-11-17] MEDS: clonazePAM (*CRX) 0.5 MG TABLET 1 MG PO (20:20)
[2022-11-17] MEDS: ONDANSETRON INJ 4 MG/2 ML VIAL IV PUSH (20:21)
[2022-11-17 20:32] LABS: Troponin I < 0.012 ng/mL (0.000-0.034)
[2022-11-17 20:37] LABS: Beta HCG Quantitative 5.12 mIU/ML
[2022-11-17 21:00] LABS: Appearance Urine Turbid (Clear); Bacteria Urine 1+ /hpf; Bilirubin Urine Negative (Negative); Blood Urine 2+ (Negative); Color Urine Yellow (Yellow); Glucose Urine UA Negative (Negative); Ketones Urine Negative (Negative); Leukocyte Esterase Ur 2+ LEU/UL (Negative); Need Manual Microscopic Reviewed; Nitrate Urine Negative (Negative); Non Pathogenic Casts 0-2; Protein Urine 1+ mg/dL (Negative); RBC Urine 0-2 /hpf (0-2); Specific Grav Ur 1.018 (1.001-1.035); Squamous Epithelial Cell Urine Many /hpf (Few); Urobilinogen Urine 0.2 mg/dL (<2.0); WBC Urine 51-100 /hpf; pH Urine >=9.0 (5.0-9.0)
[2022-11-17 21:02] LABS: Add Urine Microscopic? YES
--- NOTE | 2022-11-17 21:36 | ED.GENADULT ---
HPI - General Adult General Chief complaint: Chest Pain Stated complaint: ABD PAIN, CP, BACK PAIN, 1-MONTH POST Time Seen by Provider: 11/17/22 19:33 History of Present Illness HPI narrative: Patient presents to the emergency room with generalized abdominal discomfort and intermittent episodes of sharp chest pain. She had a vaginal delivery a couple weeks ago and then return to the emergency department with vaginal hemorrhage. She has been doing well since being discharged home from that visit. She is a history of anxiety but does not believe that this type of chest pain is consistent with her previous anxiety associated chest pains. She took nqsc-xra-[id number] medications for her abdominal pain prior to arrival that did not improve her discomfort. Denies urinary symptoms. Denies fevers chills. Patient is very pleasant although somewhat pale. Unclear if this is her baseline. She states her hemoglobin was 10 and then dropped to 8. Has not had a repeat hemoglobin since she has been home. Patient brought in by EMS and they explained her history prior to being brought in today. Related Data Home Medications Medication Instructions Recorded Confirmed fluoxetine 20 mg capsule 40 mg PO DAILY 11/03/19 01/23/22 ferrous sulfate 325 mg (65 mg 325 mg PO DAILY 01/16/22 01/16/22 iron) tablet,delayed release olanzapine 2.5 mg tablet (Zyprexa) 2.5 mg PO DAILY 01/16/22 01/16/22 olanzapine 5 mg tablet (Zyprexa) 5 mg PO HS 01/16/22 01/16/22 prenat.vits,francisco,jky-rpjq-jkabg 1 tablet PO DAILY 01/16/22 01/16/22 albuterol sulfate 90 mcg/actuation 1 puff inhalation PRN PRN 01/23/22 01/23/22 aerosol inhaler shortness of breath or wheezing Allergies Allergy/AdvReac Type Severity Reaction Status Date / Time amoxicillin Allergy Unknown Hives Verified 11/17/22 19:28 Penicillins Allergy Unknown Hives Verified 11/17/22 19:28 Review of Systems Review of Systems: Review of systems negative except for what is documented in the HPI Constitutional: Comments: GENERAL: Well-appearing, well-nourished, and in no acute distress. HEAD: Normocephalic, atraumatic. EYES: PERRLA and EOMI. ENT: Nares clear, no rhinorrhea or epistaxis. Mucous membranes moist. NECK: Supple. CHEST: Clear to auscultation. No respiratory distress. HEART: Regular rate and rhythm. ABDOMEN: Soft, nontender, nondistended. EXTREMITIES: Normal range of motion. No edema. SKIN: Warm, dry, no rash. NEURO: No focal deficits. Alert and oriented x3. PSYCH: Normal mood and affect. [facility] Past Medical History Medical History Anxiety Asthma Depression Diabetes in Eczema History of anxiety History of seizures two seizures in the past and ; continues to take medications Morbid obesity Family History Family History Other Adopted Unknown family medical history Social History Social History (Updated 06/16/20 @ 14:18 by Diandra Soler MA) Social History: former smoker Years smoked: 1 Smoking status: Current every day smoker Tobacco type: e-cigarettes/vaping Second hand tobacco smoke exposure: No Alcohol intake: never Substance use: current Other substance usage details: denies any other drug use Last use: 01/16/22 Lack of Transportation: No Lack of Food: Never True Current Housing: I Do Not Have Housing Concerned About Future Housing: No Difficulty Paying Gas/Electric Bills: No Difficulty Paying for Meds: No Currently Unemployed: No Education: High School Diploma/GED Difficulty w/ Childcare or Family Care: No Gender identity (if verbalized by the patient): Female Spiritual care concerns: No Course Course Emergency Course: Differential diagnosis includes but not limited to urinary tract infection, gastritis, small bowel obstruction, postsurgical abscess. Chest pain diffe
[2022-11-17 21:50] VITALS: BP 110/73; PULSE 86; RESP 17; O2SAT 99
[2022-11-17] MEDS: HYDROcodone/acetaminophen (*CRX) 5-325 MG TABLET 1 TAB PO (22:14)
[2022-11-17 22:43] VITALS: BP 109/83; PULSE 82; RESP 15; O2SAT 100
[2022-11-17 23:39] LABS: Troponin I < 0.012 ng/mL (0.000-0.034)
[2022-11-18] VITALS (14 sets, daily range): BP systolic 101–130; BP diastolic 57–83; PULSE 76–96; RESP 12–20; O2SAT 96–100
--- NOTE | 2022-11-18 07:15 | PC.NURSE ---
report from Farhad whitaker. waiting us result
== END 2022-11-18 08:00 | disposition home or self-care (01) ==
PROVIDERS: Emergency Provider Emergency Medicine
DX: O90.89 Other complications of the puerperium, not elsewhere classified (principal); R10.84 Generalized abdominal pain; R07.9 Chest pain, unspecified; O99.53 Diseases of the respiratory system complicating the puerperium; J45.909 Unspecified asthma, uncomplicated; O99.215 Obesity complicating the puerperium; E66.9 Obesity, unspecified; O99.345 Other mental disorders complicating the puerperium; F41.9 Anxiety disorder, unspecified; O99.335 Smoking (tobacco) complicating the puerperium; F17.290 Nicotine dependence, other tobacco product, uncomplicated; O99.63 Diseases of the digestive system complicating the puerperium; K80.20 Calculus of gallbladder without cholecystitis without obstruction; K29.70 Gastritis, unspecified, without bleeding; K20.90 Esophagitis, unspecified without bleeding
CPT/HCPCS: 36415; 74177; 76856; 80053; 81001; 81025; 84484; 84702; 85025; 87086; 93005; 96374; 99284; A9270; J2405; Q9967

== ENCOUNTER 2022-11-26 00:42 | Day surgery (SDC) | payer OTHER, SELFPAY ==
[2022-11-20 14:46] VITALS: BMI 30.2
--- NOTE | 2022-11-20 14:52 | PC.NURSE ---
Report to the Outpatient Waiting Room, entrance under the green pavilion located off [facility], at time 1215 on date 11/26/22. Planned Procedure Time: 1415. Time changes happen often and if your time is changed the preop area will call you the afternoon before. - You and your visitor will be asked to self-screen and do not enter if you have any COVID symptoms. - A mask is optional within the hospital at this time. Patients may have clear liquids (water, carbonated beverages, clear teas, apple juice) until 3 hours prior to surgery with a maximum of 20 ounces. - No food from midnight until time of surgery Take the following medications with a SIP of water the morning of surgery: CLINDAMYCIN, CLONAZEPAM, FLUOXETINE DO NOT STOP ANY OF YOUR OTHER PRESCRIPTION MEDICATIONS PRIOR TO SURGERY ?EXCEPT THE FOLLOWING Medications to discontinue per physician: VITAMINS/SUPPLEMENTS Date to take last dose: 11/22/22 Please no make-up, nail turkmen, hairspray, perfume, deodorant, or body powder the day of surgery. No jewelry (including any body piercings) or valuables the day of surgery, leave them at home. Please take a shower or bath the night before, or the morning of, surgery with an antibacterial soap. Wear comfortable, loose fitting clothing. - Jewelry must be removed prior to entering the operating room. Rings and piercings that are not removed may be cut off. - The hospital will not accept responsibility for valuables. - Please leave all valuables, including medications, at home the day of surgery. If you are going home after surgery, a licensed taxi driver supervisor must drive you home. - NO public transportation without another adult if you receive anesthesia. - We recommend that an adult stay with you for 24 hours following discharge. - We also recommend that you do not drive, make important decision, drink alcoholic beverages, or take any drugs that were not prescribed by your health care provider for at least 24 hours after your discharge time. Follow any additional instructions given to you from your surgeon. If you or anyone in your household have experienced Covid symptoms in the past week, please notify your surgeon or the nurse liaison at the phone number below for possible testing. Telephone instructions given to PT - JESUSITA RAYA and asked if any additional questions and then verbalized understanding. Patient advised to call surgeon office or pre surgery nurse liaison [phone] if any additional questions.
--- NOTE | 2022-11-26 07:13 | WPDHPUPDATE1 ---
History and Physical Update Update Date/Time: 11/26/22 07:13 History and Physical has been reviewed, including an updated exam of the patient. There are NO changes in the patient's condition. Risks, benefits, and alternatives have been discussed and questions answered. Patient agrees to proceed with hysteroscopy with D&C.
--- NOTE | 2022-11-26 11:29 | WPDANESEPPF ---
Anes - Initial Pre Proc Eval Procedure: Operation Date: 11/26/22 12:45 Proposed Procedures p Hysteroscopy with Dilation and Curettage - Sandi Kinsey MD Date/Time: 11/26/22 11:29 Surgeon: Sandi iKnsey MD Pre Op Diagnosis: Retained Products of Patient Data Age: 27 Gender: F Height: 1.57 m Weight: 74.85 kg Allergies Allergy/AdvReac Type Severity Reaction Status Date / Time amoxicillin Allergy Unknown Hives Verified 11/22/22 13:48 Penicillins Allergy Unknown Hives Verified 11/22/22 13:48 Home Medications Medication Instructions Recorded Confirmed Type ferrous sulfate 325 mg (65 mg 325 mg PO DAILY 01/16/22 11/20/22 History iron) tablet,delayed release prenat.vits,francisco,lhk-syjy-crcbt 1 tablet PO DAILY 01/16/22 11/20/22 History acetaminophen 500 mg tablet 1,000 mg PO QID PRN Pain 11/20/22 11/20/22 History clindamycin HCl 300 mg capsule 300 mg PO BID 11/20/22 11/20/22 History clonazepam 0.5 mg tablet 0.5 mg PO DAILY 11/20/22 11/20/22 History cyanocobalamin (vitamin B-12) 1,000 mcg PO DAILY 11/20/22 11/20/22 History 1,000 mcg tablet dexmethylphenidate 15 mg 15 mg PO DAILY 11/20/22 11/20/22 History capsule,extended release [id number] (Focalin XR) diphenhydramine HCl 25 mg capsule 25 mg PO DAILY 11/20/22 11/20/22 History (Benadryl) docusate sodium 100 mg capsule 100 mg PO BID 11/20/22 11/20/22 History (Colace) fluoxetine 60 mg tablet 60 mg PO DAILY 11/20/22 11/20/22 History ibuprofen 600 mg tablet 600 mg PO QID PRN Pain 11/20/22 11/20/22 History Patient hx anesthesia problems: none Family hx anesthesia problems: none Results Review: All pre-operative results and documents have been reviewed as part of the pre-operative evaluation. [facility] Past Medical History Medical History Anxiety Asthma Depression Diabetes in Eczema History of anxiety History of seizures two seizures in the past and ; continues to take medications Morbid obesity Surgical History Surgical History History of dilation and curettage 11/09/2022 in [place] Family History Family History Other Adopted Unknown family medical history Social History Social History Social History: former smoker Years smoked: 1 Smoking status: Current every day smoker Tobacco type: e-cigarettes/vaping Second hand tobacco smoke exposure: No Alcohol intake: never Substance use: never Substance use type: does not use Other substance usage details: denies any other drug use Last use: 01/16/22 Lack of Transportation: No Lack of Food: Never True Current Housing: I Do Not Have Housing Concerned About Future Housing: No Difficulty Paying Gas/Electric Bills: No Difficulty Paying for Meds: No Currently Unemployed: No Education: High School Diploma/GED Difficulty w/ Childcare or Family Care: No Living arrangements: with family Additional living arrangements comments: CHILDREN Occupation/Education: unemployed Gender identity (if verbalized by the patient): Female Spiritual care concerns: No Anes - Eval Final PreProcedure Day of Procedure 11/26/22 11:29 Patient weight: obese Heart: regular rate and rhythm Lungs: clear to auscultation Airway: Mallampati scale class II Neurological: alert and oriented Last oral intake: >/= 8 hours ASA classification: III Emergent: no Anesthetic plan: proceed Anesthesia type and monitoring: general GIVS and standard monitoring Results Review: All pre-operative results and documents have been reviewed as part of the pre-operative evaluation. Informed Consent: The patient's anesthetic plan and its attendant risks and benefits were discussed with the patient/family/POA. [facility]
[2022-11-26] MEDS: DOXYCYCLINE 100 MG/NS 100 ML 100 MG/100 ML BAG IVPB (11:30)
[2022-11-26] MEDS: ACETAMINOPHEN 500 MG TABLET 1000 MG PO (11:30)
[2022-11-26] MEDS: LACTATED RINGERS 1,000 ML 30 ML IV CONT (11:30)
[2022-11-26 11:32] VITALS: BP 120/74; PULSE 75; RESP 14; TEMP 36.8; O2SAT 100
--- NOTE | 2022-11-26 12:56 | P.OP_ITS ---
Procedure Note - Detailed Date of Procedure 11/26/22 Pre-op Diagnosis Retained Products of Post-op Diagnosis Same Procedure Performed Hysteroscopy with D&C Surgeon Sandi Kinsey MD Anesthesia MAC Findings Uterus 8cm; cervix 1cm dilated, endometrial mass noted on patient left side of uterus near cornua. Bilateral tubal ostia visualized. Good hemostasis at end of case. Description of Procedure Alexandrea was taken to the operating room where she was placed under sedation without complications. She was then prepped and draped in the usual sterile fashion in the dorsal lithotomy position with her legs in low Philippe stirrups. A time-out was performed and she had received doxycycline 100mg IV 1 hour before surgery. A bivalve speculum was placed within the vagina where the cervix was easily identified. The anterior lip of the cervix was grasped with a single- tooth tenaculum and the uterus was gently sounded. The cervix was then serially dilated to allow for the hysteroscope. The hysteroscope was advanced into the uterine cavity with the above findings noted. Using the Aveta tissue shaver, the suspected retained products of conception were removed. A gentle curettage was then performed. The hysteroscope was once again advanced into the uterine cavity where it was noted to be normal. Good hemostasis was noted. All instruments were removed from the vagina. Sponge, lap, instrument, and needle counts were correct at the end of the procedure. Patient was awoken from anesthesia and taken to recovery in a stable with plans of same-day discharge home. She will get doxycycline PO 200mg PO once post-op. Estimated Blood Loss 20 IV Fluids 600 ((fluid deficit)) Pathology Yes (endometrial mass/shavings (suspected POCs)) Complications No immediate complications Condition Stable Disposition Same day [facility] Billing Surgery - Charge Forward: Surgery Billing
[2022-11-26 13:03] VITALS: BP 103/83; PULSE 68; RESP 14; O2SAT 96
[2022-11-26 13:30] VITALS: BP 117/74; PULSE 68; RESP 14
[2022-11-26] MEDS: DOXYCYCLINE HYCLATE 100 MG TABLET 200 MG PO (13:35)
[2022-11-26] MEDS: oxyCODONE HCL (*CRX) 5 MG TAB IR PO (13:35)
[2022-11-26 14:00] VITALS: BP 116/64; PULSE 69; RESP 14
== END 2022-11-26 14:25 | disposition home or self-care (01) ==
PROVIDERS: Visit Provider Obstetrics & Gynecology
PROC: 0U5B8ZZ Destruction of Endometrium, Via Natural or Artificial Opening Endoscopic (ICD-10-PCS; CPT 58563; principal; 2022-11-26 12:45)
DX: O73.1 Retained portions of placenta and membranes, without hemorrhage (principal); N71.1 Chronic inflammatory disease of uterus; F41.9 Anxiety disorder, unspecified; J45.909 Unspecified asthma, uncomplicated; F32.A Depression, unspecified; F17.290 Nicotine dependence, other tobacco product, uncomplicated; Z87.59 Personal history of other complications of pregnancy, childbirth and the puerperium
CPT/HCPCS: 59160; 88304; A9270; J1100; J2250; J2405; J2704; J3010; J7120

== ENCOUNTER 2024-04-21 02:23 | Emergency (ER) | payer OTHER, SELFPAY ==
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
[2024-04-21 02:27] VITALS: BP 114/96; PULSE 96; RESP 18; TEMP 36.9; O2SAT 100
[2024-04-21 02:45] VITALS: BP 131/93; PULSE 91; RESP 16; O2SAT 98
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
--- OUTSIDE RECORDS SUMMARY | 2024-04-21 03:10 | XMS_ITS | Clinical Summary ---
Author Organization [facility] [place] [address] Address [address] [place] [address] Care Team Providers Care Neurology Hospitalist Name Role Phone Moses Goode MD Unavailable Allergies Active Allergy Reactions Criticality Noted Date Comments Codeine Stomach upset,Other (See comments) Low 12/25/2016 Stomach/GI Upset Penicillins Anaphylaxis,Hives,Ra sh,Unkno wn,Urticaria,Other (See comments) High 07/24/2011 Rash Medications ondansetron (ZOFRAN) 4 mg tablet Take 1 tablet (4 mg total) by mouth every 8 (eight) hours as needed for vomiting 40 tablet 03/12/19 24 Active ARIPiprazole (ABILIFY) 5 mg tablet Take 1 tablet (5 mg total) by mouth daily 90 tablet 3 05/29/19 24 Active FLUoxetine (PROzac) 20 mg capsuleIndicat ions:Anxiety,D epressive disorder Take one capsule by mouth daily, along with the 40 mg capsule, for a total of 60 mg daily 90 capsule 3 05/29/19 24 Active FLUoxetine (PROzac) 40 mg capsule Take one capsule by mouth daily, along with the 20 mg, for a total of 60 mg daily 90 capsule 3 05/29/19 24 Active cyclobenzaprin e (FLEXERIL) 10 mg tablet Take 1 tablet (10 mg total) by mouth 3 (three) times a day as needed for muscle spasms CAUTION: MAY CAUSE DROWSINESS 10 tablet 06/17/19 24 Active albuterol HFA (PROVENTIL HFA,VENTOLIN HFA,PROAIR HFA) 90 mcg/actuation inhaler Inhale 2 puffs every 4 (four) hours as needed for wheezing or shortness of breath 8 g 01/11/20 24 Active azithromycin (ZITHROMAX) 250 mg tablet Take 2 tabs (500 mg) by mouth today, than 1 daily for 4 days. 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 pos UDS 08/29 claims has script for adderall. pos UDS 08/29 Insufficient care 01/24/2023 Gestational diabetes mellitus 01/24/2023 Overview (01/24/2023): Probable per SP Blood glucose abnormal 01/24/2023 Overview (01/24/2023): Failed 1hr GTT - checking BS QID instead of 3hr GTT Low grade squamous intraepit helial lesion (LGSIL) on Papanicolaou smear of cervix 01/24/2023 Overview (01/24/2023): 2017, has declined repap x2, try to do next visit 2017, has declined repap x2, try to do next visit Cocaine abuse 01/24/2023 Overview (01/24/2023): denies, pos UDS 08/29 denies, pos UDS 08/29 premature rupture of membranes (PPROM) with unknown onset of labor 10/20/2022 labor 10/20/2022 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 no need for antiepileptics per neuro History of alcoholism ([facility]) 07/05/2021 Overview (01/24/2023): sober since 11/2020 per pt, but admitted to a [facility] 08/26 sober since 11/2020 per pt, but admitted to a [facility] 08/26 Mental disorder 07/05/2021 Overview (01/24/2023): bipolar, substance abuse, PTSD, anxiety, depression, personality d/o, pp depression. bipolar, substance abuse, PTSD, anxiety, depression, personality d/o, pp depression. Attention deficit disorder (ADD) without hyperac tivity 05/31/2021 Allergies 05/31/2021 Annual physical exam 04/06/2021 Assessment & Plan (03/19/2022 3:01 PM DENTAL HYGIENIST MOBILE COORDINATOR): Follow-up 1 year for annual physical. Continue eating healthy. Limit processed foods like white starches, fast food, sweets and soda. Increase your vegetable intake and limit red meat. Continue exercising and wearing your seatbelt at all times. No texting and driving. Continue to manage your stress in a healthy manner. Assessment & Plan (04/06/2021 10:57 AM DENTAL HYGIENIST MOBILE COORDINATOR): Follow-up 1 year for annual physical. Continue eating healthy. Limit processed foods like white starches, fast food, sweets and soda. Increase your vegetable intake and limit red meat. Continue exercising and wearing your seatbelt at all times. No texting and driving. Continue to manage your stress in a healthy manner. Placenta circumvallata 03/11/2019 Overview (01/24/2023): Circumvallate placenta, third trimester;Recorded Elsewhere: No Location: [facility] Source: EHR Chronic: N Practice ID: [id number] Billable Time: 02:30:00 PM Nausea 11/11/2018 Overview (01/24/2023): Nausea;Recorded Elsewhere: No Location: [facility] Source: EHR Chronic: N Practice ID: [id number] Billable Time: 10:00:00 AM Uterine size-date discrepancy 10/14/2018 Overview (01/24/2023): Uterine size-date discrepancy, first trimester;Recorded Elsewhere: No Location: [facility] Source: EHR Chronic: N Practice ID: [id number] Billable Time: 11:30:00 AM Syphilis contact 10/14/2018 Overview (01/24/2023): Encntr screen for infections w sexl mode of transmiss;Recorded Elsewhere: No Location: [facility] Source: EHR Chronic: N Practice ID: [id number] Billable Time: 11:00:00 AM Anxiety 10/06/2018 Endometriosis 10/06/2018 Swelling of lower leg 10/06/2018 Depressive disorder 10/06/2018 Urinary tract infectious disease 08/01/2018 Overview (01/24/2023): Urinary tract infection, site not specified;Recorded Elsewhere: No Location: [facility] Source: EHR Chronic: N Practice ID: [id number] Billable Time: 02:30:00 PM Frequent urination 03/12/2018 Overview (01/24/2023): Urgency of urination;Recorded Elsewhere: No Location: [facility] Source: EHR Chronic: N Practice ID: [id number] Billable Time: 02:45:00 PM Emotional state symptom 01/14/2018 Overview (01/24/2023): Anxiety depression;Recorded Elsewhere: No Location: [facility] Source: EHR Chronic: N Practice ID: [id number] Billable Time: 01:45:00 PM Abnormal lochia 01/07/2018 Overview (01/24/2023): Encounter for routine follow-up;Recorded Elsewhere: No Location: [facility] Source: EHR Chronic: N Practice ID: [id number] Billable Time: 10:30:00 AM Term delivered 12/02/2017 Overview (01/24/2023): Encounter for full-term uncomplicated delivery;Practice ID: 0001 False labor before 37 completed weeks of gestati on 11/17/2017 Overview (01/24/2023): False labor before 37 completed weeks of gest, third tri;Practice ID: 0001 Asthma 10/30/2017 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 10/17/2017 Overview (01/24/2023): Oth diseases and conditions compl preg/chldbrth;Recorded Elsewhere: No Location: [facility] Source: EHR Chronic: N Practice ID: [id number] Billable Time: 09:30:00 AM 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 10/14/2017 Overview (01/24/2023): Matern care for oth or susp poor fetl grth, third tri, unsp;Recorded Elsewhere: No Location: [facility] Source: EHR Chronic: N Practice ID: [id number] Billable Time: 10:30:00 AM 07/17/2017 Overview (01/24/2023): Encntr for suprvsn of normal first preg, second trimester;Recorded Elsewhere: No Location: [facility] Source: EHR Chronic: N Practice ID: [id number] Billable Time: 04:15:00 PM Encntr for suprvsn of normal first preg, third trimester;Recorded Elsewhere: No Location: [facility] Source: EHR Chronic: N Practice ID: [id number] Billable Time: 10:30:00 AM Oth related conditions, third trimester;Practice ID: 0001 Secondary amenorrhea 05/02/2017 Overview (01/24/2023): Secondary amenorrhea;Recorded Elsewhere: No Location: [facility] Source: EHR Chronic: N Practice ID: [id number] Billable Time: 11:00:00 AM Amenorrhea, unspecified;Recorded Elsewhere: No Location: [facility] Source: EHR Chronic: N Practice ID: [id number] Billable Time: 02:30:00 PM Chronic pelvic pain in female 07/13/2015 Dysmenorrhea 07/13/2015 Dysuria 07/13/2015 Pain in joint involving right pelvic region and thigh 07/13/2015 Oligomenorrhea 01/10/2015 Overview (01/24/2023): Excessive and frequent menstruation with irregular cycle;Recorded Elsewhere: No Location: [facility] Source: EHR Chronic: N Practice ID: [id number] Billable Time: 05:15:00 PM Right lower quadrant pain 10/01/2014 Overview (01/24/2023): RLQ pain;Recorded Elsewhere: No Location: [facility] Source: EHR Chronic: N Practice ID: [id number] Billable Time: 09:15:00 AM Female genital symptoms 10/01/2014 Overview (01/24/2023): Unspecified symptom associated with female genital organs;Recorded Elsewhere: No Location: [facility] Source: EHR Chronic: N Practice ID: [id number] Billable Time: 09:15:00 AM Increased frequency of urination 09/15/2014 Overview (01/24/2023): Urinary frequency;Practice ID: 0001 Dysuria 09/15/2014 Overview (01/24/2023): Dysuria;Recorded Elsewhere: No Location: [facility] Source: EHR Chronic: N Practice ID: [id number] Billable Time: 11:30:00 AM Endometriosis of pelvic peritoneum 05/04/2014 Overview (01/24/2023): Endometriosis of peritoneum of pelvis;Recorded Elsewhere: No Location: [facility] Source: EHR Chronic: N Practice ID: [id number] Billable Time: 03:15:00 PM Dysmenorrhea 04/07/2014 Overview (01/24/2023): Dysmenorrhea;Recorded Elsewhere: No Location: [facility] Source: EHR Chronic: N Practice ID: [id number] Billable Time: 09:15:00 AM Irregular intermenstrual bleeding 02/21/2014 Overview (01/24/2023): Metrorrhagia;Recorded Elsewhere: No Location: [facility] Source: EHR Chronic: N Practice ID: [id number] Billable Time: 03:30:00 PM Post-operative hemorrhage 09/04/2011 Overview (03/09/2021): status post tonsillectomy Encounters Date Type Department Care Team Description 03/11/2024 12:05 PM DENTAL HYGIENIST MOBILE COORDINATOR E-Visit [facility] [address] [place] [phone] Kaylen Mora NP Your Medications 03/11/2024 Patient Self-Triage [facility] [address] [place] [phone] Mychart, Generic Provider 03/08/2024 10:55 AM DENTAL HYGIENIST MOBILE COORDINATOR E-Visit [facility] [address] [place] [phone] Lara Smith MD Your Medications 03/08/2024 Patient Self-Triage [facility] [address] [place] [phone] Mychart, Generic Provider 02/24/2024 Patient Self-Triage [facility] [address] [place] [phone] Mychart, Generic Provider 02/24/2024 Patient Self-Triage [facility] [address] [place] [address] Carmitahart, Generic Provider 02/08/2024 Patient Self-Triage [facility] [address] [place] [phone] Kishan, Generic Provider from Last 3 Months Immunizations Name Administration Dates Next Due DTaP, Unspecified 10/31/2002, 9,02/23/1998,12/22,1997 HPV, Quadrivalent 10/05/2011,11/08/2008 Hep B, Unspecified 02/23/1998,1997, 998 HiB 02/23/1998,1997,1997 Influenza, Quadrivalent, Spl it, Preservative Free, Intramuscular 01/25/2022,12/14/2019,12/14/2019,02/09 MMR 01/25/2022,10/31/2002,11/17/1998 Meningococcal ACWY, Unspecified 11/08/2008 Polio, Unspecified 10/31/2002, 9,1997,10/26 Rotavirus, Unspecified 03/25/1998,02/23/1998, Tdap 10/29/2022,01/25/2022,10/05/2011 Varicella 11/17/1998 Surgical History Surgery Date Site/Laterality Comments APPENDECTOMY TONSILLECTOMY AND ADENOIDECTOMY Medical History Medical History Date Comments Anxiety Depression Endometriosis Family History * Patient is adopted Medical History Relation Name Comments No Known Problems Daughter Drug abuse Father Alcohol abuse Mother No Known Problems Son Relation Name Status Comments Daughter Alive Father Alive Mother Alive Son Alive Social History Tobacco Use Types Packs/Day Years Used Date Smoking Tobacco: Every Day Cigarettes 0.3 8.1 Started: 2016 Smokeless Tobacco: Never Tobacco Cessation:Ready to Q uit: Not Asked; Counseling Given: Not Answered AUDIT-C Answer Date Recorded Q1: How often do you have a drink containing alc ohol? Never 03/16/2021 Average Number of Drinks Not on file 022 Frequency of Binge Drinking Not on file 08/2021 PHQ-2 Answer Date Recorded PHQ-2 Total Score (If total score is 3 or more points, staff should administer the PHQ-9) 0 03/19/2022 Comments No Sex and Gender Information Value Date Recorded Sex Assigned at Not on file Legal Sex Female 9:07 PM DENTAL HYGIENIST MOBILE COORDINATOR Gender Identity Female 03/09/2021 12:43 PM DENTAL HYGIENIST MOBILE COORDINATOR Sexual Orientation Straight 03/09/2021 12 :43 PM DENTAL HYGIENIST MOBILE COORDINATOR Obstetrics History Last Filed Vital Signs Vital Sign Reading Time Taken Comments Blood Pressure 112/64 04/25/2021 1:59 PM DENTAL HYGIENIST MOBILE COORDINATOR Pulse 78 04/25/2021 1:59 PM DENTAL HYGIENIST MOBILE COORDINATOR Temperature 36.6 C (97.8 F) 04/25/2021 1:59 PM DENTAL HYGIENIST MOBILE COORDINATOR Respiratory Rate 16 04/25/2021 1:59 PM DENTAL HYGIENIST MOBILE COORDINATOR Oxygen Saturation 99% 04/25/2021 1:59 PM DENTAL HYGIENIST MOBILE COORDINATOR Inhaled Oxygen Concentration - - Weight 63.5 kg (140 lb) 01/24/2023 4:06 PM DENTAL HYGIENIST MOBILE COORDINATOR Height 154.9 cm (5' 1 ) 01/24/2023 4:06 PM DENTAL HYGIENIST MOBILE COORDINATOR Body Mass Index 26.45 01/24/2023 4:06 PM DENTAL HYGIENIST MOBILE COORDINATOR Plan of Treatment Health Maintenance Due Date Last Done Comments Hepatitis C Screening 1997 Pneumococcal vaccine <65 (1 of 2 - PCV) 08/20/2003 Depression Screening 03/19/2023 03/19/2022, 03/16/19 22 Regular Well Visit/Exam 18-64 03/19/2023 03/19/2022, 04/06/2021 Covid-19 Vaccine ( - 2023-2 5 season) 2023 09/14/2021, 09/22/2020, 09/01/2020 Influenza Vaccine (#1) 2023 2, 12/14/2019, 12/14/2019, Additional history exists Cervical Cancer Screening 04/25/2024 04/25/2021, DTaP/Tdap/Td Vaccine (9 - Td or Tdap) 10/29/2032 10/29/2022, 01/25/2022, 10/05/2011, Additional history exists Varicella Vaccines Discontinued 11/17/1998 HPV Vaccines Completed 10/05/2011, 11/08/2008 Procedures Procedure Name Priority Date/Time Associated Diagnosis Comments PAP WITH REFLEX TO HIGH RISK HPV Routine 04/25/2021 2:20 PM DENTAL HYGIENIST MOBILE COORDINATOR Encounter for well woman exam with routine gynecological exam from Last 3 Months or Most Recently Relevant to Health Maintenance Results * (ABNORMAL) Pap with reflex to High Risk HPV (04/25/2021 2:20 PM DENTAL HYGIENIST MOBILE COORDINATOR) Clinical indication Comment(A) [facility] - 01 Comment: EPITHELIAL CELL ABNORMALITY. ATYPICAL SQUAMOUS CELLS OF UNDETERMINED SIGNIFICANCE (ASC-US). FUNGAL ORGANISMS MORPHOLOGICALLY CONSISTENT WITH RICHELLE SPECIES ARE PRESENT. Recommendation Comment(A) [facility] - 01 Comment:Suggest follow up as clinically appropriate. Specimen adequacy: Comment [facility] - 01 Comment:Satisfactory for red luation. No endocervical component is identified. Clinician provided ICD10 Comment [facility] - 01 Comment:Z01.419 Performed by Comment [facility] - 01 Comment:Alethea Black, [facility] otechnologist (ASCP) Electronically signed by Comment [facility] - 01 Comment:Irma Garza MD, Pathologist . . [facility] - 01 Pathologist provided ICD10 Comment [facility] - 01 Comment:R87.610, R87.5 Note: Comment [facility] - 01 Comment: The Pap smear is a screening test designed to aid in the detection of premalignant and malignant conditions of the uterine cervix. It is not a diagnostic procedure and should not be used as the sole means of detecting cervical cancer. Both false-positive and false-negative reports do occur. Test methodology Comment [facility] - 01 Comment: This liquid based ThinPrep(R) pap test was screened with the use of an image guided system. . Comment [facility] - 01 Comment:See below for HPV te sting results. Thin prep 04/25/2021 2:20 PM DENTAL HYGIENIST MOBILE COORDINATOR 04/26/2021 Narrative [facility] - 05/02/2021 7:09 AM DENTAL HYGIENIST MOBILE COORDINATOR Performed at: - [facility] [address] [id number] Stiff Leg Operator: Irma Garza MD, Phone: [phone] Specimen Comment: No. of containers..01 ThinPrep Vial Sandi Rodrigues NP LAB CYTOLOGY ORDERABLES Final Result [facility] - 01 from Last 3 Months or Most Recently Relevant to Health Maintenance Insurance [facility] Care Teams Neurology Hospitalist Relationship Specialty Start Date End Date Moses Goode MD 03/09/21
--- OUTSIDE RECORDS SUMMARY | 2024-04-21 03:10 | XMS_ITS | Referral Summary ---
Author Organization [facility] Address [address] [place] [address] Care Team Providers Care Value Stream Coach Name Role Phone Moses Goode MD Primary Care Provider [phone] [facility],non-owned Affiliates and Associated Physician Practices is amultiple site organization consisting of ambulatory clinics and hospital sitesin [place], [place], [place] and [place]. This disclosure is being madepursuant to the Care Everywhere program and may not contain all information available regarding this patient. Last updated 17.[facility] Encounters Date Type Department Care Team Description 02/24/[address] [facility] [address] [place] [phone] Mendoza Lennon Jr., MD MEDICATION REFILL from Last 3 Months Allergies Active Allergy Reactions Criticality Noted Date Comments Amoxicillin Urticaria Medium 12/05/2013 Penicillins Urticaria Medium 12/05/2013 Medications * Be aware that medications may not be up to date on this document. Alwaysverify current medications with the patient. Medication Sig Dispensed Refills Start Date End Date Status diphenhydrAMINE (BENADRYL) 25 MG capsuleIndications :Seasonal Allergic Rhinitis Take 25 mg by mouth every 4 hours as needed for Itching. Indications: Hayfever Active Oprlwgkq-Nre-Cv-FA ( VITAMIN WITH IRON) tablet Take 1 tablet by mouth once daily Active lamoTRIgine (LAMICTAL) 100 MG tabletIndications: Epilepsy Take 1 tablet by mouth 2 times daily Reasons: Epilepsy 60 tablet 2 11/27/2017 Active FLUoxetine (PROZAC) 10 MG capsule Take 10 mg by mouth once daily 10/28/2019 Active hydrOXYzine pamoate (VISTARIL) 25 MG capsule Take 25 mg by mouth once daily 11/15/2019 Active levonorgestrel (KYLEENA) 19.5 MG IUD IUD 1 Intra Uterine Device by Intrauterine route as directed Active dicyclomine (BENTYL) 10 MG capsule Take 10 mg by mouth 4 times daily Active Biotin 47569 MCG TABS Active HYDROcodone-acetam inophen (NORCO) 5-325 MG tablet Take 1 tablet by mouth every 6 hours as needed for Pain Active docusate sodium (COLACE) 100 MG capsule Take 100 mg by mouth once daily Active fluticasone propionate (FLONASE) 50 MCG/ACT nasal spray [place] 2 sprays into each nostril once daily Active naproxen (NAPROSYN) 500 MG tablet Take 1 tablet by mouth 2 times daily 30 tablet 01/05/2020 Active ketorolac (TORADOL) 10 MG tablet Take 1 (one) tablet by mouth every 6 hours as needed for Pain 10 tablet 04/14/2020 Active tamsulosin (FLOMAX) 0.4 MG capsuleIndications :Urolithiasis Take 1 (one) capsule by mouth once daily Reasons: Urinary Tract Stones 30 capsule 04/14/2020 Active cyclobenzaprine (FLEXERIL) 10 MG tablet TAKE 1 TABLET TWICE A DAY, NEEDED FOR CHRONIC GENERALIZED PAIN. 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 Hinton--started on Lamictal Check Lamictal (lamotrigine) evels every month 11/14/17- <0.9 ug/ml (2.5-15) Asthma 10/30/2017 Dysmenorrhea 07/13/2015 Pain in joint involving right pelvic region and thigh 07/13/2015 Chronic pelvic pain in female 07/13/2015 Dysuria 07/13/2015 Immunizations Name Administration Dates Next Due INFLUENZA VACCINE, QUADR. (F LUZONE; FLULAVAL; FLUARIX; AFLURIA QUADRIVALENT; 6MO+), 0.5 ML (IIV4) 12/14/2019 Social History Tobacco Use Types Packs/Day Years Used Date Smoking Tobacco: Every Day Cigarettes 0.3 2 Smokeless Tobacco: Never Alcohol Use Standard Drinks/Week Comments No 0 (1 standard drink = 0.6 oz pur e alcohol) Sex and Gender Information Value Date Recorded Sex Assigned at Not on file Gender Identity Not on file Sexual Orientation Not on file Last Filed Vital Signs Vital Sign Reading Time Taken Comments Blood Pressure 146/91 02/22/2020 9:04 AM SUPPORT MANAGER Pulse 110 02/22/2020 9:04 AM SUPPORT MANAGER Temperature 36.2 C (97.1 F) 02/22/2020 9:04 AM SUPPORT MANAGER Respiratory Rate 16 02/22/2020 9:04 AM SUPPORT MANAGER Oxygen Saturation 98% 02/22/2020 9:04 AM SUPPORT MANAGER Inhaled Oxygen Concentration - - Weight 72.6 kg (160 lb) 02/22/2020 9:04 AM SUPPORT MANAGER Height 154.9 cm (5' 1 ) 02/22/2020 9:04 AM SUPPORT MANAGER Body Mass Index 30.23 02/22/2020 9:04 AM SUPPORT MANAGER Functional Status Functional Status Response Date of Assess ment Is person deaf or have serious hearing difficult y? No 07/13/2015 Is person blind or have serious difficulty seein g? No 07/13/2015 Does person have serious dif ficulty walking/climbing stairs? No 07/13/2015 Does person have difficulty dressing/bathing? No 07/13/2015 Does person have difficulty doing errands alone? No 07/13/2015 Cognitive Status Response Date of Assessm ent Does person have difficulty concentrating/remembering/making decisions? No 07/13/2015 Plan of Treatment Not on file Advance Directives Documents on File Type Date Recorded Patient Dictaphone Transcriber Expl anation Adv Directive/Living Will/POA 01/25/2014 7:47 AM Care Teams Value Stream Coach Relationship Specialty Start Date End Date Moses Goode MD [address] [place] [address] PCP - General 04/08/18
--- OUTSIDE RECORDS SUMMARY | 2024-04-21 03:10 | XMS_ITS | Referral Summary ---
Author Organization [facility] [address] Address [address] [place] [address] Care Team Providers Care Cut Off Worker Name Role Phone Moses Goode MD Unavailable Encounters Date Type Department Care Team Description 03/11/2024 12:05 PM HOIST CYLINDER LOADER E-Visit [facility] Medical [facility] Care [address] [place] [phone] Kaylen Mora NP Your Medications 03/11/2024 Patient Self-Triage [facility] HealthCare/ Physicians [address] [place] [phone] Mychart, Generic Provider 03/08/2024 10:55 AM HOIST CYLINDER LOADER E-Visit [facility] Care [address] [place] [phone] Lara Smith MD Your Medications 03/08/2024 Patient Self-Triage [facility] HealthCare/[facility] Physicians [address] [place] [phone] Mychart, Generic Provider 02/24/2024 Patient Self-Triage [facility] [address] [place] [phone] Mychart, Generic Provider 02/24/2024 Patient Self-Triage [facility] [address] [place] [phone] Mychart, Generic Provider 02/08/2024 Patient Self-Triage [facility] [address] [place] [phone] Mychart, Generic Provider from Last 3 Months Allergies Active Allergy [...] 06/04/2022 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 no need for antiepileptics per neuro History of alcoholism ([facility]) 07/05/2021 Overview (01/24/2023): sober since 11/2020 per pt, but admitted to a [facility] 08/26 sober since 11/2020 per pt, but admitted to a [facility] 08/26 Mental disorder 07/05/2021 Overview (01/24/2023): bipolar, substance abuse, PTSD, anxiety, depression, personality d/o, pp depression. bipolar, substance abuse, PTSD, anxiety, depression, personality d/o, pp depression. Attention deficit disorder (ADD) without hyperac tivity 05/31/2021 Allergies 05/31/2021 Annual physical exam 04/06/2021 Assessment & Plan (03/19/2022 3:01 PM HOIST CYLINDER LOADER): Follow-up 1 year for annual physical. Continue eating healthy. Limit processed foods like white starches, fast food, sweets and soda. Increase your vegetable intake and limit red meat. Continue exercising and wearing your seatbelt at all times. No texting and driving. Continue to manage your stress in a healthy manner. Assessment & Plan (04/06/2021 10:57 AM HOIST CYLINDER LOADER): Follow-up 1 year for annual physical. Continue eating healthy. Limit processed foods like white starches, fast food, sweets and soda. Increase your vegetable intake and limit red meat. Continue exercising and wearing your seatbelt at all times. No texting and driving. Continue to manage your stress in a healthy manner. Placenta circumvallata 03/11/2019 Overview (01/24/2023): Circumvallate placenta, third trimester;Recorded Elsewhere: No Location: [facility] Source: EHR Chronic: N Practice ID: [id number] Billable Time: 02:30:00 PM Nausea 11/11/2018 Overview (01/24/2023): Nausea;Recorded Elsewhere: No Location: [facility] Source: EHR Chronic: N Practice ID: [id number] Billable Time: 10:00:00 AM Uterine size-date discrepancy 10/14/2018 Overview (01/24/2023): Uterine size-date discrepancy, first trimester;Recorded Elsewhere: No Location: [facility] Source: EHR Chronic: N Practice ID: [id number] Billable Time: 11:30:00 AM Syphilis contact 10/14/2018 Overview (01/24/2023): Encntr screen for infections w sexl mode of transmiss;Recorded Elsewhere: No Location: [facility] Source: EHR Chronic: N Practice ID: [id number] Billable Time: 11:00:00 AM Anxiety 10/06/2018 Endometriosis 10/06/2018 Swelling of lower leg 10/06/2018 Depressive disorder 10/06/2018 Urinary tract infectious disease 08/01/2018 Overview (01/24/2023): Urinary tract infection, site not specified;Recorded Elsewhere: No Location: [facility] Source: EHR Chronic: N Practice ID: [id number] Billable Time: 02:30:00 PM Frequent urination 03/12/2018 Overview (01/24/2023): Urgency of urination;Recorded Elsewhere: No Location: [facility] Source: EHR Chronic: N Practice ID: [id number] Billable Time: 02:45:00 PM Emotional state symptom 01/14/2018 Overview (01/24/2023): Anxiety depression;Recorded Elsewhere: No Location: [facility] Source: EHR Chronic: N Practice ID: [id number] Billable Time: 01:45:00 PM Abnormal lochia 01/07/2018 Overview (01/24/2023): Encounter for routine follow-up;Recorded Elsewhere: No Location: [facility] Source: EHR Chronic: N Practice ID: [id number] Billable Time: 10:30:00 AM Term delivered 12/02/2017 Overview (01/24/2023): Encounter for full-term uncomplicated delivery;Practice ID: [id number] False labor before 37 completed weeks of gestati on 11/17/2017 Overview (01/24/2023): False labor before 37 completed weeks of gest, third tri;Practice ID: [id number] Asthma 10/30/2017 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 10/14/2017 Overview (01/24/2023): Matern care for oth or susp poor fetl grth, third tri, unsp;Recorded Elsewhere: No Location: [facility] Source: EHR Chronic: N Practice ID: [id number] Billable Time: 10:30:00 AM 07/17/2017 Overview (01/24/2023): Encntr for suprvsn of normal first preg, second trimester;Recorded Elsewhere: No Location: [facility] Source: EHR Chronic: N Practice ID: [id number] Billable Time: 04:15:00 PM Encntr for suprvsn of normal first preg, third trimester;Recorded Elsewhere: No Location: [facility] Source: EHR Chronic: N Practice ID: [id number] Billable Time: 10:30:00 AM Oth related conditions, third trimester;Practice ID: [id number] Secondary amenorrhea 05/02/2017 Overview (01/24/2023): Secondary amenorrhea;Recorded Elsewhere: No Location: [facility] Source: EHR Chronic: N Practice ID: [id number] Billable Time: 11:00:00 AM Amenorrhea, unspecified;Recorded Elsewhere: No Location: [facility] Source: EHR Chronic: N Practice ID: [id number] Billable Time: 02:30:00 PM Chronic pelvic pain in female 07/13/2015 Dysmenorrhea 07/13/2015 Dysuria 07/13/2015 Pain in joint involving right pelvic region and thigh 07/13/2015 Oligomenorrhea 01/10/2015 Overview (01/24/2023): Excessive and frequent menstruation with irregular cycle;Recorded Elsewhere: No Location: [facility] Source: EHR Chronic: N Practice ID: [id number] Billable Time: 05:15:00 PM Right lower quadrant pain 10/01/2014 Overview (01/24/2023): RLQ pain;Recorded Elsewhere: No Location: [facility] Source: EHR Chronic: N Practice ID: [id number] Billable Time: 09:15:00 AM Female genital symptoms 10/01/2014 Overview (01/24/2023): Unspecified symptom associated with female genital organs;Recorded Elsewhere: No Location: [facility] Source: EHR Chronic: N Practice ID: [id number] Billable Time: 09:15:00 AM Increased frequency of urination 09/15/2014 Overview (01/24/2023): Urinary frequency;Practice ID: [id number] Dysuria 09/15/2014 Overview (01/24/2023): Dysuria;Recorded Elsewhere: No Location: [facility] Source: EHR Chronic: N Practice ID: [id number] Billable Time: 11:30:00 AM Endometriosis of pelvic peritoneum 05/04/2014 Overview (01/24/2023): Endometriosis of peritoneum of pelvis;Recorded Elsewhere: No Location: [facility] Source: EHR Chronic: N Practice ID: [id number] Billable Time: 03:15:00 PM Dysmenorrhea 04/07/2014 Overview (01/24/2023): Dysmenorrhea;Recorded Elsewhere: No Location: [facility] Source: EHR Chronic: N Practice ID: [id number] Billable Time: 09:15:00 AM Irregular intermenstrual bleeding 02/21/2014 Overview (01/24/2023): Metrorrhagia;Recorded Elsewhere: No Location: [facility] Source: EHR Chronic: N Practice ID: [id number] Billable Time: 03:30:00 PM Post-operative hemorrhage 09/04/2011 Overview (03/09/2021): status post tonsillectomy Immunizations Name Administration Dates Next Due DTaP, Unspecified 10/31/2002, 9,02/23/1998,12/22,1997 HPV, Quadrivalent 10/05/2011,11/08/2008 Hep B, Unspecified 02/23/1998,1997, 998 HiB 02/23/1998,1997,1997 Influenza, Quadrivalent, Spl it, Preservative Free, Intramuscular 01/25/2022,12/14/2019,12/14/2019,02/09 MMR 01/25/2022,10/31/2002,11/17/1998 Meningococcal ACWY, Unspecified 11/08/2008 Polio, Unspecified 10/31/2002, 9,1997,10/26 Rotavirus, Unspecified 03/25/1998,02/23/1998, Tdap 10/29/2022,01/25/2022,10/05/2011 Varicella 11/17/1998 Social History Tobacco Use Types Packs/Day Years [...] on file Legal Sex Female 9:07 PM HOIST CYLINDER LOADER Gender Identity Female 03/09/2021 12:43 PM HOIST CYLINDER LOADER Sexual Orientation Straight 03/09/2021 12 :43 PM HOIST CYLINDER LOADER Last Filed Vital Signs Vital Sign Reading Time Taken Comments Blood Pressure 112/64 04/25/2021 1:59 PM HOIST CYLINDER LOADER Pulse 78 04/25/2021 1:59 PM HOIST CYLINDER LOADER Temperature 36.6 C (97.8 F) 04/25/2021 1:59 PM HOIST CYLINDER LOADER Respiratory Rate 16 04/25/2021 1:59 PM HOIST CYLINDER LOADER Oxygen Saturation 99% 04/25/2021 1:59 PM HOIST CYLINDER LOADER Inhaled Oxygen Concentration - - Weight 63.5 kg (140 lb) 01/24/2023 4:06 PM HOIST CYLINDER LOADER Height 154.9 cm (5' 1 ) 01/24/2023 4:06 PM HOIST CYLINDER LOADER Body Mass Index 26.45 01/24/2023 4:06 PM HOIST CYLINDER LOADER Plan of Treatment Not on file Procedures Procedure Name Priority Date/Time Associated Diagnosis Comments PAP WITH REFLEX TO HIGH RISK HPV Routine 04/25/2021 2:20 PM HOIST CYLINDER LOADER Encounter for well woman exam with routine gynecological exam from Last 3 Months or Most Recently Relevant to Health Maintenance Results * (ABNORMAL) Pap with reflex to High Risk HPV (04/25/2021 2:20 PM HOIST CYLINDER LOADER) Clinical indication Comment(A) [facility] - 01 Comment: [...] Performed by Comment [facility] - 01 Comment:Alethea Black [facility] otechnologist (ASC) Electronically signed by Comment [facility] - 01 [...] sting results. Thin prep 04/25/2021 2:20 PM HOIST CYLINDER LOADER 04/26/2021 Narrative [facility] - 05/02/2021 7:09 AM HOIST CYLINDER LOADER Performed at: 01 - [facility] [address] [id number] Line Fisher: Irma Garza MD, Phone: [phone] Specimen Comment: No. of containers..01 ThinPrep Vial Sandi Rodrigues NP LAB CYTOLOGY ORDERABLES Final Result [facility] - from Last 3 Months or Most Recently Relevant to Health Maintenance Insurance [facility] Care Teams Cut Off Worker Relationship Specialty Start Date End Date Moses Goode MD 03/09/21
--- OUTSIDE RECORDS SUMMARY | 2024-04-21 03:10 | XMS_ITS | Clinical Summary ---
Author Organization [facility] Address [address] [place] [address] Phone Care Team Providers Care Supervisor Extruding Department Name Role Phone Michelle Thakur MD Primary Care Provid er Allergies Active Allergy Reactions Criticality Noted Date Comments Amoxicillin Hives High 07/24/2011 Medications sertraline (ZOLOFT) 50 mg Oral tablet Take 50 mg by mouth daily. Active diphenhydrAMINE (BENADRYL) 25 mg Oral tablet Take 25 mg by mouth every 6 hours as needed. Active clonazePAM (KLONOPIN) 0.5 mg Oral Tab Take 0.5 mg by mouth 2 times daily as needed. Active acetaminophen (TYLENOL) 500 mg Oral tablet Take 1,000 mg by mouth every 6 hours as needed. Active Active Problems Problem Noted Date Diagnosed Date Post-operative hemorrhage 09/04/2011 Overview (09/04/2011): status post tonsillectomy Social History Tobacco Use Types Packs/Day Years Used Date Smoking Tobacco: Never Alcohol Use Standard Drinks/Week Comments No 0 (1 standard drink = 0.6 oz pur e alcohol) Comments Unknown Sex and Gender Information Value Date Recorded Sex Assigned at Not on file Legal Sex Female 6:01 AM NUTRITION CLUB AMBASSADOR Gender Identity Not on file Sexual Orientation Not on file Occupation Industry Job Start Date Job End Date Not on file Not on file Not on file Not on file Last Filed Vital Signs Vital Sign Reading Time Taken Comments Blood Pressure 111/71 09/04/2011 4:30 PM CDT Pulse 67 09/04/2011 4:30 PM CDT Temperature 37.2 C (99 F) 09/04/2011 3:46 PM CDT Respiratory Rate 16 09/04/2011 4:30 PM CDT Oxygen Saturation 99% 09/04/2011 4:30 PM CDT Inhaled Oxygen Concentration - - Weight 42.9 kg (94 lb 9.2 oz) 09/04/2011 3:46 PM CDT Height - - Body Mass Index - - Plan of Treatment Health Maintenance Due Date Last Done Comments HPV VACCINES (1 - 3-dose series) 2012 DTAP/TDAP/TD VACCINES (1 - Tdap) 2016 HEPATITIS B VACCINES (1 of 3 - 19+ 3-dose series) 2016 CERVICAL CANCER SCREENING 2018 INFLUENZA VACCINE (#1) 2023 PNEUMOCOCCAL VACCINE 0-64 YEARS Aged Out No longer eligible based on patient's age to complete this topic Medical Devices Implanted Type Area Diver Tender Device Identifier Shelf Expiration Date Model / Serial / Lot Tube Vent Collar Button Ultrasil [id number] - [id number] Implanted:Qty: 1 on 08/28/[address] [facility] Ear [employer] [id number] / / Insurance [employer] PPO [employer] PPO Care Teams Supervisor Extruding Department Relationship Specialty Start Date End Date Michelle Thakur MD [address] [place] [address] PCP - General Pediatrics 07/28/10
--- OUTSIDE RECORDS SUMMARY | 2024-04-21 03:10 | XMS_ITS | Encounter Summary ---
Author Organization [facility] Address [address] [place] [address] Care Team Providers Care Peer Financial Counselor Name Role Phone Moses Goode MD Primary Care Provider [phone] Reason for Visit * Reason Onset Date Comments MEDICATION REFILL 10/23/2022 Encounter Details Date Type Department Care Team (Late st Contact Info) Description 10/23/2022 Refill [facility] - Cardiothoracic Surgery [address] [place] [phone] Jacquie Schwartz M, BOLT HEADER-FITNESS AND WELLNESS INSTRUCTOR [address] [place] [phone] MEDICATION REFILL Social History Tobacco Use Types Packs/Day Years Used Date Smoking Tobacco: Every Day Cigarettes 0.3 2 Smokeless Tobacco: Never Alcohol Use Standard Drinks/Week Comments No 0 (1 standard drink = 0.6 oz pur e alcohol) Sex and Gender Information Value Date Recorded Sex Assigned at Not on file Gender Identity Not on file Sexual Orientation Not on file documented as of this encounter Functional Status Functional Status Response Date of [...] person have difficulty concentrating/remembering/making decisions? No 07/13/2015 documented as of this encounter Plan of Treatment Not on file documented as of this encounter Visit Diagnoses Not on filedocumented in this encounter Care Teams Peer Financial Counselor Relationship Specialty Start Date End Date Moses Goode MD [address] [place] [id number] PCP - General 04/08/18 documented as of this encounter
--- OUTSIDE RECORDS SUMMARY | 2024-04-21 03:10 | XMS_ITS | Patient Health Summary ---
Author Organization [facility] Address [address] [place] [address] Care Team Providers Care Crop Or Grain Farmworker Name Role Phone Moses Goode MD Primary Care Provider [phone] Note from [facility],non-owned Affiliates and Associated Physician Practices is amultiple site organization consisting of ambulatory clinics and hospital sitesin [place], [place], [place] and [place]. This disclosure is being madepursuant to the Care Everywhere program and may not contain all information available regarding this patient. Last updated 17.[facility] Allergies * Amoxicillin(Urticaria) -Medium Criticality * Penicillins(Urticaria) -Medium Criticality * Codeine(Nausea and/or Vomiting) -Medium Criticality,Inactive Medications * Be aware that medications may not be up to date on this document. Alwaysverify current medications with the patient. * diphenhydrAMINE (BENADRYL) 25 MG capsule Take 25 mg by mouth every 4 hours as needed for Itching. Indications: Hayfever * Sibukecv-Kik-Qs-FA ( VITAMIN WITH IRON) tablet Take 1 tablet by mouth once daily * lamoTRIgine (LAMICTAL) 100 MG tablet(Started 11/27/2017) Take 1 tablet by mouth 2 times daily Reasons: Epilepsy 2 refills remaining * FLUoxetine (PROZAC) 10 MG capsule(Started 10/28/2019) Take 10 mg by mouth once daily * hydrOXYzine pamoate (VISTARIL) 25 MG capsule(Started 11/15/2019) Take 25 mg by mouth once daily * levonorgestrel (KYLEENA) 19.5 MG IUD IUD 1 Intra Uterine Device by Intrauterine route as directed * dicyclomine (BENTYL) 10 MG capsule Take 10 mg by mouth 4 times daily * Biotin 29478 MCG TABS * HYDROcodone-acetaminophen (NORCO) 5-325 MG tablet Take 1 tablet by mouth every 6 hours as needed for Pain * docusate sodium (COLACE) 100 MG capsule Take 100 mg by mouth once daily * fluticasone propionate (FLONASE) 50 MCG/ACT nasal spray Foster 2 sprays into each nostril once daily * naproxen (NAPROSYN) 500 MG tablet(Started 01/05/2020) Take 1 tablet by mouth 2 times daily * ketorolac (TORADOL) 10 MG tablet(Started 04/14/2020) Take 1 (one) tablet by mouth every 6 hours as needed for Pain * tamsulosin (FLOMAX) 0.4 MG capsule(Started 04/14/2020) Take 1 (one) capsule by mouth once daily Reasons: Urinary Tract Stones * cyclobenzaprine (FLEXERIL) 10 MG tablet(Started 09/21/2020) TAKE 1 TABLET TWICE A DAY, NEEDED FOR CHRONIC GENERALIZED PAIN. 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 (FLUZONE; FLULAVAL; FLUARIX; AFLURIA QUADRIVALENT; 6MO+), 0.5 ML (IIV4)(Given 12/14/2019) Social History Tobacco Use Types Packs/Day Years [...] Comments Blood Pressure 146/91 02/22/2020 9:04 AM TELEVISION NEWS PHOTOGRAPHER Pulse 110 02/22/2020 9:04 AM TELEVISION NEWS PHOTOGRAPHER Temperature 36.2 C (97.1 F) 02/22/2020 9:04 AM TELEVISION NEWS PHOTOGRAPHER Respiratory Rate 16 02/22/2020 9:04 AM TELEVISION NEWS PHOTOGRAPHER Oxygen Saturation 98% 02/22/2020 9:04 AM TELEVISION NEWS PHOTOGRAPHER Inhaled Oxygen Concentration - - Weight 72.6 kg (160 lb) 02/22/2020 9:04 AM TELEVISION NEWS PHOTOGRAPHER Height 154.9 cm (5' 1 ) 02/22/2020 9:04 AM TELEVISION NEWS PHOTOGRAPHER Body Mass Index 30.23 02/22/2020 9:04 AM TELEVISION NEWS PHOTOGRAPHER Procedures * URINALYSIS AUTO - POINT OF CARE (AMB) [facility](Performed 02/22/2020) Performed for Kidney stone * URINALYSIS AUTO - POINT OF CARE (AMB) [facility](Performed 01/18/2020) Performed for Kidney stone * CULTURE URINE(Performed 01/05/2020) Performed for Recurrent UTI * URINALYSIS AUTO - POINT OF CARE (AMB) [facility](Performed 01/05/2020) Performed for Recurrent UTI * CULTURE URINE(Performed 11/26/2019) Performed for Dysuria * SONOGRAM - COMPLETE(Performed 10/30/2017) Performed for Small for gestational age (HCC) * APHERESIS/TRANSFUSION ORDER(Performed 07/16/2015) * CARDIAC RHYTHM STRIP ORDER(Performed 07/16/2015) * PATHOLOGY TISSUE EXAM (STL)(Performed 07/13/2015) Performed for Pelvic pain in female, Pelvic joint pain, unspecified laterality, Dysuria, Endometriosis * CYSTOSCOPY WITH HYDRODISTENSION BLADDER(Performed 07/13/2015) Performed for Pelvic pain in female, Pelvic joint pain, unspecified laterality, Dysuria, Endometriosis * LAPAROSCOPIC APPENDECTOMY(Performed 07/13/2015) Performed for Pelvic pain in female, Pelvic joint pain, unspecified laterality, Dysuria, Endometriosis * LAPAROSCOPIC FULGURATION/EXCISION LESION PELVIC/OVARY (LASER)(Performed 07/13/2015) Performed for Pelvic pain in female, Pelvic joint pain, unspecified laterality, Dysuria, Endometriosis * HCG URINE QUALITATIVE - POINT OF CARE(Performed 07/13/2015) * PATHOLOGY/GENETICS HISTORICAL-ONBASE(Performed 07/13/2015) * BLOOD TYPE VERIFICATION(Performed 07/05/2015) * TYPE + SCREEN PANEL(Performed 07/05/2015) Performed for Pre-op testing * CBC W AUTO DIFFERENTIAL(Performed 07/05/2015) Performed for Pre-op testing * CHLAMYDIA+GC JEMMA PAP VIAL(Performed 04/21/2015) * CULTURE URINE(Performed 04/21/2015) * CULTURE TRICHOMONAS VAGINALIS(Performed 02/09/2014) * CULTURE URINE(Performed 02/09/2014) * HCG URINE QUALITATIVE - POCT (IP) BEAKER(Performed 02/09/2014) * CHLAMYDIA + GC AMPLIFIED PROBE(Performed 02/09/2014) * COMPREHENSIVE METABOLIC PANEL(Performed 02/09/2014) * LIPASE BLOOD(Performed 02/09/2014) * CBC W AUTO DIFFERENTIAL(Performed 02/09/2014) * C-REACTIVE PROTEIN(Performed 02/09/2014) * HCG URINE QUALITATIVE - POCT (IP) BEAKER(Performed 02/09/2014) * URINE MICROSCOPIC ONLY(Performed 02/09/2014) * URINALYSIS REFLEX TO MICROSCOPIC NO CULTURE(Performed 02/09/2014) * ESOPHAGOGASTRODUODENOSCOPY (EGD) BIOPSY(Performed 01/25/2014) Performed for Abdominal pain, unspecified site * EGD(Performed 01/25/2014) Performed for Abdominal pain, unspecified site * HELICOBACTER PYLORI UREASE (STL)(Performed 01/25/2014) Performed for Abdominal pain, unspecified site * PATHOLOGY TISSUE EXAM (STL)(Performed 01/25/2014) * HCG URINE QUALITATIVE - POCT (IP) BEAKER(Performed 01/25/2014) * US ABDOMEN COMPLETE(Performed 01/25/2014) Performed for Abdominal pain, unspecified site * LAB RESULTS ORDER(Performed 01/20/2014) * TSH(Performed 01/18/2014) Performed for Abdominal pain, unspecified site * LIPASE BLOOD(Performed 01/18/2014) Performed for Abdominal pain, unspecified site * AMYLASE BLOOD(Performed 01/18/2014) Performed for Abdominal pain, unspecified site * C-REACTIVE PROTEIN(Performed 01/18/2014) Performed for Abdominal pain, unspecified site * COMPREHENSIVE METABOLIC PANEL(Performed 01/18/2014) Performed for Abdominal pain, unspecified site * CBC W AUTO DIFFERENTIAL(Performed 01/18/2014) Performed for Abdominal pain, unspecified site * CULTURE URINE(Performed 12/17/2013) * CT ABDOMEN PELVIS W CONTRAST(Performed 12/05/2013) Performed for Abdominal pain, generalized * HCG URINE QUALITATIVE - POCT (IP) BEAKER(Performed 12/05/2013) * URINE MICROSCOPIC ONLY(Performed 12/05/2013) * URINALYSIS REFLEX TO MICROSCOPIC NO CULTURE(Performed 12/05/2013) * COMPREHENSIVE METABOLIC PANEL(Performed 12/05/2013) * CBC W AUTO DIFFERENTIAL(Performed 12/05/2013) Results * URINALYSIS AUTO - POINT OF CARE (AMB) [facility] (02/22/2020) Only the most recent of3 resultswithin the time period is included. Glucose UA neg Bilirubin UA POCT neg Ketones UA POCT neg Specific [place] UA 1.030 Blood Urine POCT 25 Larry/uL pH UA 5.5 Protein UA 0.15 g/L Urobilinogen UA 3.5 umo l/L Nitrite UA neg WBC UA neg Urine URINE / Unknown 02/22/2020 Jacquie Schwartz LIGHT TRUCK DRIVER-BODY BUMPER LAB - POINT O F CARE ORDERABLES * CULTURE URINE (01/05/2020 9:12 AM CDT) Only the most recent of5 resultswithin the time period is included. Culture [facility] Comment: CULTURE, URINE, ROUTINE Micro Number: [id number] Test Status: Final Specimen Source: URINE, CLEAN CATCH Specimen Quality: Adequate Result: Growth of mixed reece was isolated, suggesting probable contamination. No further testing will be performed. If clinically indicated, recollection using a method to minimize contamination, with prompt transfer to Urine Culture Transport Tube, is recommended. Test Performed at: [facility] [address] [place] [address] CHUYITA GLASER DO,MPH Urine URINE SPECIMEN OBTAINED BY CLEAN CATCH PROCEDURE / Unknown 01/05/2020 9:12 AM CDT 01/05/2020 12:05 PM CDT Lisa Campo MD LAB - MICROBIOLOGY O RDERABLES [facility] [address] [place] [address] * SONOGRAM - COMPLETE (10/30/2017 1:49 PM CDT) Anatomical Region Laterality Modality Other 10/30/2017 1:49 PM CDT Narrative 10/30/2017 10:43 PM CDT NIRAJ [facility] PHONE: FAX: Pat. Name: JESUSITA CRAIG Pat. No: [id number] Study Date: 10/30/2017 1:49pm , Age: 8 1995, 22 Pregnancies: 2, Ab 1 Height: 60 in Weight: 114 lb LMP: 03/04/2017 GA by LMP: 34w2d GA by US: 32w6d ALO: 12/19/2017 GA Selected: 33w4d (Outside Scan) ALO: 12/14/2017 Referring MD: Jerel Miles MD [employer] Supervisor: Kayla Leon RDMS, [facility] CPT4: 43763 BMI: 22.26 Hist/Ind: Seizures MEASUREMENTS & AGE GROWTH EVALUATION Measurement GA Range Srce %for GA Ratios ----- ---- ------- BPD 8.2 cm 33w0d (26j3y-02h3n) Hadl BPD 29% FL/BPD 0.76 (0.71 - 0.87) HC 30.1 cm 33w2d (50i6t-82v5v) Hadl HC 12% FL/AC 0.20 (0.20 - 0.24) AC 31.0 cm 35w0d (56f3s-67e3q) Hadl AC 86% HC/AC 0.97 (0.95 - 1.13) FL 6.3 cm 32w4d (59y2c-64x4k) Hadl FL 15% CI 0.77 (0.70 - 0.86) HL 5.6 cm 32w4d (86y7y-06t5f) Jaxon HL 34% GA for sonogram 32w6d (51j8y-77t7b) Weight Estimate: based on (BPD,HC,AC,FL) Hadlock Weight: 2305 gm (1968-2641gm) Had : 5lbs, 1oz Normal: 2282 gm (1712-2852gm) Had Wt% 53% for 33w4d Heart Rate: 146 bpm Amniotic Fluid Index: 12.7cm (08.2-24.7) Q2: 4.1cm Q3: 3.7cm Q4: 4.9cm EVAL, PLACENTA Presentation: cephalic Umbilical Cord: 3 Vessels Placenta: anterior Heart Rate: 146 bpm Amniotic Fluid Volume: normal Anatomy!Normal!Abnormal!Suboptimal!Comments Cranium ! x ! ! ! Mdl (CSP/Thal! ! ! x ! Ventricles ! x ! ! ! Choroid Plexu! x ! ! ! Cerebellum ! x ! ! ! Cisterna M. ! x ! ! ! Profile ! ! ! x ! Nasal Bone ! ! ! x ! Lip ! ! ! x ! Spine ! x ! ! ! Lungs ! x ! ! ! 4 Chamber Hea! x ! ! ! LVOT ! x ! ! ! RVOT ! x ! ! ! 3 Vessel View! x ! ! ! Cross-over ! ! ! x ! Ductal Arch ! x ! ! ! Aortic Arch ! x ! ! ! Caval View ! ! ! x ! Situs ! x ! ! ! Diaphragm ! x ! ! ! Stomach ! x ! ! ! Bowel ! x ! ! ! Kidneys ! x ! ! ! Bladder ! x ! ! ! 3 Vessel Cord! x ! ! ! Cord In! ! ! x ! Upper Extremi! ! ! x ! Hands ! x ! ! ! Lower Extremi! ! ! x ! Feet ! x ! ! ! External Jessica! x ! ! !Male CLINICAL SUMMARY Study Number: 1 A detailed anatomical screen was performed due to maternal epilepsy. The exam was technically adequate due to advanced gestational age. A single fetus is identified in cephalic presentation. The measurements today are consistent with overall appropriate growth. The abdominal circumference is ahead of other biometric markers. The ALO selected is based on a prior outside ultrasound performed at 9 weeks ( confirmed ). The patient was not certain of her last menstrual period and this was not used during today's exam. The amniotic fluid volume is normal. The placenta is anterior. While crossing of the great vessels is not optimally demonstrated, the transverse arch view has a normal relationship between the ductus arteriosus and the aorta. The anatomical screen is suboptimal and incomplete in a few areas.Ultrasound does not allow detection of all structural or chromosomal abnormalities. ultrasound is limited in the ability to detect or exclude small, cardiac, septal defects. IMPRESSION: Single, line IUP at 33w4d Estimated size concordant with estimated due date of 12/14/2017 normal amniotic fluid Incomplete anatomical screen RECOMMEND: Follow up ultrasound in 4 weeks for completion of anatomy and re-evaluation of growth Thank you for allowing us the opportunity to care for your patient. Yolande Ybarra MD <Electronic Signature> 10/30/2017 10:44pm Yolande Ybarra MD [facility] ORDERABLES * APHERESIS/TRANSFUSION ORDER (07/16/2015 12:24 AM CDT) Narrative 07/16/2015 12:24 AM CDT Ordered by an unspecified provider. Scanned Document NURSING - VITAL SIGN S AND ASSESSMENT * CARDIAC RHYTHM STRIP ORDER (07/16/2015 12:24 AM CDT) Narrative 07/16/2015 12:24 AM CDT Ordered by an unspecified provider. Scanned Document CARDIAC SERVICES ORD ERABLES * GROSS + MICRO EXAM (STL) (07/13/2015 8:32 AM CDT) Only the most recent of2 resultswithin the time period is included. Case Report Surgical Pathology Report Case: [id number] Authorizing Provider: Mendoza Lennon Jr., MD Collected: 07/13/2015 08:32 AM Ordering Location: [facility] Received: 07/13/2015 10:24 AM Pathologist: David Cardoza MD Specimens: A) - Fossa, right ovarian fossa B) - Cul De Sac , right posterior cul de sac C) - Ligament, right uterosacral ligament D) - Ligament, left uterosacral ligament E) - Fossa, left ovarian fossa F) - Tissue, left anterior abdominal wall G) - Appendix 07/14/2015 4:16 PM CDT [facility] Final Diagnosis 1. Ovarian fossa, right, biopsy (A): -- No histopathologic abnormality -- No endometriosis 2. Cul-de-sac, right posterior biopsy (B): -- Endometriosis, focal 3. Ligament, right uterosacral, biopsy (C): -- No pathologic abnormality -- No endometriosis identified 4. Ligament, left uterosacral, biopsy (D): -- No pathologic abnormality -- No endometriosis identified 5. Fossa, left ovarian, biopsy (E): -- No pathologic abnormality -- No endometriosis identified 6. Tissue, left anterior abdominal, biopsy (F): -- No pathologic abnormality -- No endometriosis identified 7. Appendix, appendectomy (G): -- No appendicitis identified -- No endometriosis /scs 07/14/2015 4:16 PM [facility] Clinical History The patient is a 19 y.o. G0 who describes chronic pelvic pain for 2 years. Missing school, multiple ER visits, has been on narcotics for pain relief. 07/14/2015 4:16 PM [facility] Gross Description The specimen is received fixed in formalin in seven containers, all seven containers are labeled with the patient's name. Specimen A, right ovarian fossa, consists of a soft yellow-chambers tissue fragment measuring 0.9 x 0.4 x 0.2 cm. The specimen is submitted entirely in cassette A1. Specimen B, cul de sac, right posterior, consists of two pink-chambers tissue fragments measuring 0.6 and 0.5 cm in greatest dimension. The specimen is submitted entirely in cassette B1. Specimen C, ligament, right uterosacral, consists of a single soft chambers-pink tissue fragment measuring 1.1 x 0.6 x 0.3 cm and is submitted entirely in cassette C1. Specimen D, ligament, left uterosacral, consists of a chambers-yellow fatty tissue measuring 0.9 x 0.7 x 0.4 cm. This tissue is bisected and submitted entirely in cassette D1. Specimen E, fossa, left ovarian, consists of a soft yellow-chambers tissue measuring 0.4 x 0.3 x 0.2 cm. The specimen is entirely submitted in cassette E1. Specimen F, tissue, left anterior abdominal, consists of a chambers-pink tissue measuring 0.7 x 0.4 x 0.3 cm. This tissue is entirely submitted in cassette F1. Specimen G, appendix, consists of a vermiform appendix measuring 5.6 cm in length with a diameter of 0.4 cm. The appendix is stapled closed through its proximal margin. The staple line is removed and appendix is serially sectioned revealing fecalith material inside its lumen. The tip of the appendix is longitudinally sectioned and is entirely submitted along with a industrial relations representative section from the appendiceal lumen in cassette G1. Ayush 07/14/2015 4:16 PM [facility] Microscopic Description Review of material from specimens #1 to #6 show fibroadipose tissue lined by mesothelium. Focal endometriosis is identified #2 in deeper sections. The rest shows no evidence of endometriosis. Appendix is unremarkable. MIKE/Richa 07/14/2015 4:16 PM CDT [facility] Pathology/Cytology MISCELLANEOUS SAMPLES / Unknown 07/13/2015 8:32 AM CDT 07/13/2015 10:24 AM CDT Miscellaneous samples (specimen) ENTIRE RECTOUTERINE POUCH / Unknown 07/13/2015 8:35 AM CDT 07/13/2015 10:24 AM CDT Miscellaneous samples (specimen) ENTIRE LIGAMENT / Unknown 07/13/2015 8:38 AM CDT 07/13/2015 10:24 AM CDT Miscellaneous samples (specimen) ENTIRE LIGAMENT / Unknown 07/13/2015 8:43 AM CDT 07/13/2015 10:24 AM CDT Miscellaneous samples (specimen) MISCELLANEOUS SAMPLES / Unknown 07/13/2015 8:44 AM CDT 07/13/2015 10:24 AM CDT Miscellaneous samples (specimen) TISSUE SPECIMEN / Unknown 07/13/2015 8:46 AM CDT 07/13/2015 10:24 AM CDT Miscellaneous samples (specimen) ENTIRE APPENDIX / Unknown 07/13/2015 8:55 AM CDT 07/13/2015 10:24 AM CDT Mendoza Lennon Jr., MD LAB - PATHOLOGY/ CYTOLOGY ORDERABLES [facility] [address] [place] [address] * HCG URINE QUALITATIVE - POINT OF CARE (IP) (07/13/2015 7:05 AM CDT) HCG Qual Urine Negative Negative [facility] POCT TESTING QC Verified Yes Yes [facility] POC T TESTING Urine specimen (specimen) URINE / Unknown 07/13/2015 7:05 AM CDT Mendoza Lennon Jr., MD LAB - POINT OF C ARE ORDERABLES Performing Organization Address [facility] Co de Phone Number [facility] POCT TESTING [address] [place] [address] * PATHOLOGY/GENETICS HISTORICAL-ONBASE (07/13/2015) 07/13/2015 Narrative [facility] - 07/15/2015 10:18 AM CDT Historical Provider LAB - CHEMISTRY O RDERABLES [facility] [address] * BLOOD TYPE VERIFICATION (07/05/2015 9:41 AM CDT) ABO O 07/05/2015 9:48 AM CDT [facility] Rh Type Positive 07/05/2015 9:48 AM CDT [facility] Miscellaneous samples (specimen) BLOOD SPECIMEN / Unknown Venipuncture / Unknown 07/05/2015 9:41 AM CDT 07/05/2015 9:41 AM CDT Mendoza Lennon Jr., MD LAB - BLOOD BANK ORDERABLES Performing Organization Address [facility] de Phone Number [facility] BLOOD [facility] [address] [place] [address] * TYPE + SCREEN PANEL (07/05/2015 9:07 AM CDT) ABO O 07/05/2015 9:49 AM CDT [facility] Rh Type Positive 07/05/2015 9:49 AM CDT [facility] Comment:History check perfor med. No retype required. Antibody Screen Negative 07/05/2015 9:49 AM CDT [facility] LAB Miscellaneous samples (specimen) BLOOD SPECIMEN / Unknown Venipuncture / Unknown 07/05/2015 9:07 AM CDT 07/05/2015 9:13 AM CDT Mendoza Lennon Jr., MD LAB - BLOOD BANK ORDERABLES Performing Organization Address [facility] Co de Phone Number [facility] BLOOD [facility] [address] [place] [address] * (ABNORMAL) CBC W AUTO DIFFERENTIAL (07/05/2015 9:07 AM CDT) Only the most recent of4 resultswithin the time period is included. Pathologist [facility] WBC 5.6 4.5 - 11.0 x10E9/L 07/05/2015 9:18 AM CDT [facility] WBC Corrected x10E9/L 07/05/2015 9:18 AM CDT [facility] RBC 4.21 4.10 - 5.10 x10E12/L 07/05/2015 9:18 AM [facility] Hemoglobin 12.7 12.0 - 16.0 gm/dL 07/05/2015 9:18 AM T [facility] Hematocrit 36.5 36.0 - 47.0 % 07/05/2015 9:18 AM CDT [facility] MCV 86.7 78.0 - 102.0 fl 07/05/2015 9:18 AM T [facility] MCH 30.2 25.0 - 35.0 pg 07/05/2015 9:18 AM CDT [facility] MCHC 34.8 31.0 - 37.0 gm/dL 07/05/2015 9:18 AM [facility] Platelet Count 252 100 - 400 x10E9/L 07/05/2015 9:18 AM [facility] RDW-CV 12.8 11.5 - 14.0 % 07/05/2015 9:18 AM [facility] MPV 10.4(H) 6.0 - 9.5 fl 07/05/2015 9:18 AM T [facility] Neutrophils % 34.1 31.0 - 78.0 % 07/05/2015 9:18 AM [facility] Lymphocytes % 47.4 13.0 - 54.0 % 07/05/2015 9:18 AM [facility] Monocytes % 10.6 4.0 - 13.0 % 07/05/2015 9:18 AM CDT [facility] Eosinophils % 6.1 0.0 - 8.0 % 07/05/2015 9:18 AM CDT [facility] Basophils % 1.6 % 07/05/2015 9:18 AM CDT [facility] Immature Granulocytes 0.2 % 07/05/2015 9:18 AM CDT [facility] Neutrophil Absolute 1.91 x10E9/L 07/05/2015 9:18 AM CDT [facility] Lymphocytes Absolute 2.65 x10E9/L 07/05/2015 9:18 AM CDT [facility] Monocytes Absolute 0.59 x10E9/L 07/05/2015 9:18 AM CDT [facility] Eosinophils Absolute 0.34 x10E9/L 07/05/2015 9:18 AM CDT [facility] Basophils Absolute 0.09 x10E9/L 07/05/2015 9:18 AM CDT [facility] Immature Granulocytes Absolute 0.01 x10E9/L 07/05/2015 9:18 AM CDT [facility] nRBC Auto 0 /100 WBC 07/05/2015 9:18 AM CDT [facility] Blood BLOOD SPECIMEN / Unknown Venipuncture / Unknown 07/05/2015 9:07 AM CDT 07/05/2015 9:13 AM CDT Mendoza Lennon Jr., MD LAB - HEMATOLOGY ORDERABLES Performing Organization Address [facility] Co de Phone Number [facility] [address] [place] [address] * CHLAMYDIA+GC JEMMA PAP VIAL (04/21/2015) Pathologist [facility] Chlamydia trachomatis RNA TMA NOT DETECTED NOT DETECTED [facility]) Neisseria gonorrhoeae RNA TMA NOT DETECTED NOT DETECTED [facility]) See Note [facility]) Comment: This test was performed using the APTIMA COMBO2 Assay ([employer] The analytical performance characteristics of this assay, when used to test [employer] specimens have been determined by [employer]. Test Performed at: [facility] [address] [place] [address] CHUYITA GLASER DO,MPH Vaginal swab (specimen) 04/21/2015 04/22/2015 7:08 AM TELEVISION NEWS PHOTOGRAPHER Narrative [facility]) - 04/23/2015 5:00 AM TELEVISION NEWS PHOTOGRAPHER Specimen Type->Vaginal swab Mendoza Lennon Jr., MD LAB - MICROBIOLO GY ORDERABLES Performing Organization Address [facility]/ZIP Co de Phone Number [facility]) * CULTURE TRICHOMONAS (02/09/2014 3:17 PM TELEVISION NEWS PHOTOGRAPHER) [facility] Culture No growth Trichomonas vaginalis 02/12/2014 1:32 PM TELEVISION NEWS PHOTOGRAPHER [facility] Microbiology ENTIRE VAGINA / Unknown 02/09/2014 3:17 PM TELEVISION NEWS PHOTOGRAPHER 02/09/2014 3:24 PM TELEVISION NEWS PHOTOGRAPHER Mike Mercedes MD LAB - MICROBIOLOGY O RDERABLES Performing Organization Address [facility] Co de Phone Number [facility] [address] [place] [address], [facility] * HCG URINE QUALITATIVE - POCT (IP) BEAKER (02/09/2014 1:02 PM TELEVISION NEWS PHOTOGRAPHER) Only the most recent of4 resultswithin the time period is included. HCG Qual Urine Negative Negative [facility] POCT TESTING QC Verified Yes Yes [facility] PO CT TESTING Urine specimen (specimen) URINE / Unknown 02/09/2014 1:02 PM TELEVISION NEWS PHOTOGRAPHER Mike Mercedes MD LAB - POINT OF CARE ORDERABLES Performing Organization Address [facility] de Phone Number [facility] POCT TESTING [address] [place] [address], [facility] * CHLAMYDIA + GC AMPLIFIED PROBE (02/09/2014 12:42 PM TELEVISION NEWS PHOTOGRAPHER) Chlamydia Amplified Probe Negative Negative 02/10/2014 1:41 PM TELEVISION NEWS PHOTOGRAPHER [facility] GC Amplified Probe Negative Negative 02/10/2014 1:41 PM TELEVISION NEWS PHOTOGRAPHER [facility] Urine URINE / Unknown 02/09/2014 1 2:42 PM TELEVISION NEWS PHOTOGRAPHER 02/09/2014 12:51 PM TELEVISION NEWS PHOTOGRAPHER Narrative [facility] - 02/10/2014 1:41 PM TELEVISION NEWS PHOTOGRAPHER This test was developed and its performance characteristics determined by the [facility], [facility]. Female urine specimens tested by the [facility] [place] have not been cleared or approved by the FDA. The laboratory is regulated under CLIA as qualified to perform high-complexity testing. This test is used for clinical purposes. It should not be regarded as investigational or for research. Results based on detection/no detection of ribosomal RNA by amplified method. Mike Mercedes MD LAB - MICROBIOLOGY O RDERABLES Performing Organization Address [facility] Co de Phone Number [facility] [address] [place], [place] [address] * C-REACTIVE PROTEIN (02/09/2014 12:41 PM TELEVISION NEWS PHOTOGRAPHER) Only the most recent of2 resultswithin the time period is included. Pathologist [facility] C-Reactive Protein <0.20 <=0.50 mg/dL 02/09/2014 1:15 PM [facility] Blood BLOOD SPECIMEN / Unknown 02/09/2014 12:41 PM TELEVISION NEWS PHOTOGRAPHER 02/09/2014 12:58 PM TELEVISION NEWS PHOTOGRAPHER Mike Mercedes MD LAB - CHEMISTRY WILLIE MITCHELL [facility] [address] [place], [place] [id number] * (ABNORMAL) COMPREHENSIVE METABOLIC PANEL (02/09/2014 12:41 PM TELEVISION NEWS PHOTOGRAPHER) Only the most recent of3 resultswithin the time period is included. Pathologist [facility] Glucose 82 70 - 105 mg/dL 02/09/2014 1:17 PM [facility] Sodium 140 136 - 145 mmol/L 02/09/2014 1:17 PM [facility] Potassium 4.7 3.5 - 5.1 mmol/L 02/09/2014 1:17 PM [facility] Comment:Slightly hemolyzed Chloride 106 98 - 107 mmol/L 02/09/2014 1:17 PM [facility] CO2 24 20 - 28 mmol/L 02/09/2014 1:17 PM [facility] Calcium 9.57 9.08 - 10.48 mg/dL 02/09/2014 1:17 PM [facility] Anion Gap 10 5 - 20 mmol/L 02/09/2014 1:17 PM [facility] BUN 9.7 5.3 - 18.7 mg/dL 02/09/2014 1:17 PM [facility] Creatinine 0.90 0.61 - 1.07 mg/dL 02/09/2014 1:17 PM [facility] eGFR by MDRD mL/min/1.7 3m2 02/09/2014 1:17 PM [facility] Comment:eGFR calculations ar e not performed for children under 18 years old. eGFR by MDRD mL/min/1.7 3m2 02/09/2014 1:17 PM [facility] Comment:eGFR calculations ar e not performed for children under 18 years old. Alkaline Phosphatase 48(L) 100 - 390 U/L 02/09/2014 1:17 PM [facility] ALT 9 8 - 65 U/L 02/09/2014 1:17 PM [facility] AST 25 3 - 35 U/L 02/09/2014 1:17 PM [facility] Protein Total 7.4 6.3 - 8.2 gm/dL 02/09/2014 1:17 PM [facility] Albumin 4.3 3.3 - 4.9 gm/dL 02/09/2014 1:17 PM [facility] Bilirubin Total 0.3 0.3 - 1.2 mg/dL 02/09/2014 1:17 PM [facility] Blood BLOOD SPECIMEN / Unknown 02/09/2014 12:41 PM TELEVISION NEWS PHOTOGRAPHER 02/09/2014 12:58 PM TELEVISION NEWS PHOTOGRAPHER Mike Mercedes MD LAB - CHEMISTRY ORDVipin MITCHELL Performing Organization Address City/[facility]/ZIP Co de Phone Number [facility] [address] [place] [phone] * LIPASE BLOOD (02/09/2014 12:41 PM TELEVISION NEWS PHOTOGRAPHER) Only the most recent of2 resultswithin the time period is included. Pathologist [facility] Lipase 35 10 - 220 U/L 02/09/2014 1:18 PM [facility] Blood BLOOD SPECIMEN / Unknown 02/09/2014 12:41 PM TELEVISION NEWS PHOTOGRAPHER 02/09/2014 12:58 PM TELEVISION NEWS PHOTOGRAPHER Mike Mercedes MD LAB - [facility] Performing Organization Address [facility] Co de Phone Number [facility] [address] [place] [phone] * (ABNORMAL) URINALYSIS ROUTINE AUTO (02/09/2014 11:45 AM TELEVISION NEWS PHOTOGRAPHER) Only the most recent of2 resultswithin the time period is included. Color UA [place](A) Straw, Yellow, Dark Yellow 02/09/2014 12:01 PM [facility] Clarity UA Clear 02/09/2014 12:01 PM [facility] Specific [place] UA >=1.030 1.005 - 1.030 02/09/2014 12:01 PM [facility] pH UA 5.0 5.0 - 8.0 pH 02/09/2014 12:01 PM [facility] Protein UA 2+(A) Negative 02/09/2014 12:01 PM [facility] Blood UA Negative Negative 02/09/2014 12:01 PM [facility] Leukocyte UA Trace(A) Negative 02/09/2014 12:01 PM [facility] Nitrite UA Positive(A) Negative 02/09/2014 12:01 PM [facility] Glucose UA Trace(A) Negative 02/09/2014 12:01 PM [facility] Ketone UA Trace(A) Negative 02/09/2014 12:01 PM [facility] Bilirubin UA Negative Negative 02/09/2014 12:01 PM [facility] Urobilinogen UA 4.0(H) 0.1 - 1.0 EU/dL 02/09/2014 12:01 PM [facility] Urine Microscopy Urine microscopy to follow 02/09/2014 12:01 PM [facility] Urine URINE SPECIMEN OBTAINED BY CLEAN CATCH PROCEDURE / Unknown 02/09/2014 11:45 AM TELEVISION NEWS PHOTOGRAPHER 02/09/2014 11:52 AM [facility] Mike Mercedes MD LAB - URINALYSIS ORD ERABLES Performing Organization Address [facility] Co de Phone Number [facility] [address] [place] [phone] * (ABNORMAL) URINALYSIS MICROSCOPIC ONLY (02/09/2014 11:45 AM [facility]) Only the most recent of2 resultswithin the time period is included. RBC UA 0-2, 2-5 # /hpf 02/09/2014 1:04 PM [facility] WBC UA 20-50(A) 0-2, 2-5 # /hpf 02/09/2014 1:04 PM [facility] Bacteria UA 1+(A) None Seen, Trace 02/09/2014 1:04 PM [facility] Epithelial Cell UA 2-5 0-2, 2-5 02/09/2014 1:04 PM TELEVISION NEWS PHOTOGRAPHER [facility] Mucus UA 1+ 02/09/2014 1:04 PM TELEVISION NEWS PHOTOGRAPHER [facility] Urine URINE SPECIMEN OBTAINED BY CLEAN CATCH PROCEDURE / Unknown 02/09/2014 11:45 AM TELEVISION NEWS PHOTOGRAPHER 02/09/2014 11:52 AM TELEVISION NEWS PHOTOGRAPHER Mike Mercedes MD LAB - URINALYSIS ORD ERABLES [facility] [address] [place] [address] * EGD (01/25/2014 10:47 AM TELEVISION NEWS PHOTOGRAPHER) Report Endoscopy POC _ Patient Name: Jesusita Craig Gender: Female Date of : 1995 Age: 18 Admit Type: Outpatient Attending MD: Kai Arora MD Order #: [id number] _ Procedure: Upper GI endoscopy Indications: Abdominal pain Providers: Kai Arora MD Referring MD: Michelle Thakur MD Medicines: General Anesthesia Complications: No immediate complications. Estimated blood loss: Minimal. _ Procedure: After obtaining informed consent, the endoscope was passed under direct vision. Throughout the procedure, the patient's blood pressure, pulse, and oxygen saturations were monitored continuously. The Endoscope was introduced through the mouth, and advanced to the second part of duodenum. The upper GI endoscopy was accomplished without difficulty. The patient tolerated the procedure fairly well. Findings: The examined esophagus was normal. Biopsies were taken with a cold forceps for histology. The entire examined stomach was normal. Biopsies were taken with a cold forceps for histology. Biopsies were taken with a cold forceps for Helicobacter pylori testing using a rapid urease test. The examined duodenum was normal. Biopsies were taken with a cold forceps for histology. Impression: - Normal esophagus. Biopsied. - Normal stomach. Biopsied. - Normal examined duodenum. Biopsied. Recommendation: - Please call GI office in 2 weeks for the results. Keep scheduled appointments. Please keep us informed of patient progress. Do not hesitate to call GI for any questions / concerns. Procedure Code(s): --- Professional --- 04734, Esophagogastrodu odenoscopy, flexible, transoral; with biopsy, single or multiple --- Technical --- 05204, Esophagogastrodu odenoscopy, flexible, transoral; with biopsy, single or multiple Diagnosis Code(s): --- Professional --- 789.00, Abdominal pain, unspecified site --- Technical --- 789.00, Abdominal pain, unspecified site CPT copyright 2013 [employer]. All rights reserved. The codes documented in this report are preliminary and upon cleaning crew member review may be revised to meet current compliance requirements. Dr. Kai Arora Kai Arora MD 01/25/2014 10:02 AM This report has been signed electronically. Number of Addenda: 0 Note Initiated On: 01/21/2014 10:47 AM Procedure Date: 01/25/2014 10:47:00 AM This report has been signed electronically. [facility] ENDOSCOPY 01/25/2014 10:4 7 AM TELEVISION NEWS PHOTOGRAPHER Kai Arora MD GI PROCEDURE ORDERAB LES [facility] ENDOS[facility] [address] [place] [address] * HELICOBACTER PYLORI UREASE (STL) (01/25/2014 10:01 AM TELEVISION NEWS PHOTOGRAPHER) Helicobacter pylori Urease Initial Negative Negative 01/26/2014 10:31 AM TELEVISION NEWS PHOTOGRAPHER [facility] Helicobacter pylori Urease Final Negative Negative 01/26/2014 10:31 AM TELEVISION NEWS PHOTOGRAPHER [facility] Microbiology GASTRIC ANTRAL BIOPSY SPECIMEN / Unknown 01/25/2014 10:01 AM TELEVISION NEWS PHOTOGRAPHER 01/25/2014 10:14 AM TELEVISION NEWS PHOTOGRAPHER Kai Arora MD LAB - MICROBIOLOGY O RDERABLES [facility] [address] [place] [address] * US ABDOMEN COMPLETE (01/25/2014 8:16 AM TELEVISION NEWS PHOTOGRAPHER) Anatomical Region Laterality Modality Abdomen Ultrasound 01/25/2014 8:17 AM TELEVISION NEWS PHOTOGRAPHER Impressions 01/25/2014 8:19 AM TELEVISION NEWS PHOTOGRAPHER Normal. Narrative 01/25/2014 8:19 AM TELEVISION NEWS PHOTOGRAPHER EXAMINATION: Abdominal ultrasound History: 18-year-old female with periumbilical pain Comparison: None Findings: Multiple, real-time images of the abdomen are obtained. Ultrasound examination shows a normal appearing liver and spleen. The spleen measures 10.3 cm in length. The gallbladder is normal. There is no biliary dilatation. The common duct measures 1 mm in diameter, which is within normal limits. The right kidney measures 9.5 x 3.1 x 3.5 cm, and left kidney measures 9.9 x 3.3 x 3.8 cm. Both kidneys are normal in size for the patient's age. Renal cortical echogenicity is normal. No hydronephrosis, masses, or stones are seen. The visible portions of the pancreas are normal. No ascites is present. The urinary bladder is nearly empty. The visible portions of the inferior vena cava and abdominal aorta are normal. Procedure Note Caprice Galeas MD - 01/25/2014 EXAMINATION: Abdominal ultrasound History: 18-year-old female with periumbilical pain Comparison: None Findings: Multiple, real-time images of the abdomen are obtained. Ultrasound examination shows a normal appearing liver and spleen. The spleen measures 10.3 cm in length. The gallbladder is normal. There is no biliary dilatation. The common duct measures 1 mm in diameter, which is within normal limits. The right kidney measures 9.5 x 3.1 x 3.5 cm, and left kidney measures 9.9 x 3.3 x 3.8 cm. Both kidneys are normal in size for the patient's age. Renal cortical echogenicity is normal. No hydronephrosis, masses, or stones are seen. The visible portions of the pancreas are normal. No ascites is present. The urinary bladder is nearly empty. The visible portions of the inferior vena cava and abdominal aorta are normal. IMPRESSION Normal. Kai Arora MD US ORDERABLES * LAB RESULTS ORDER (01/20/2014 1:34 AM TELEVISION NEWS PHOTOGRAPHER) Narrative 01/20/2014 1:34 AM TELEVISION NEWS PHOTOGRAPHER Ordered by an unspecified provider. Scanned Document LAB - THERAPEUTIC DR MONITORING ORDERABLES * (ABNORMAL) AMYLASE BLOOD (01/18/2014 4:46 PM TELEVISION NEWS PHOTOGRAPHER) Amylase 71(H) 5 - 65 U/L 01/18/2014 6:36 PM TELEVISION NEWS PHOTOGRAPHER [facility] Blood BLOOD SPECIMEN / Unknown Lab Venipuncture / Unknown 01/18/2014 4:46 PM TELEVISION NEWS PHOTOGRAPHER 01/18/2014 5:24 PM TELEVISION NEWS PHOTOGRAPHER Kai Arora MD LAB - CHEMISTRY WILLIE MITCHELL Performing Organization Address City/[facility] Co de Phone Number [facility] [address] [place] [address] * TSH (01/18/2014 4:46 PM TELEVISION NEWS PHOTOGRAPHER) TSH 0.97 0.35 - 4.95 uIU/mL 01/18/2014 6:29 PM TELEVISION NEWS PHOTOGRAPHER [facility] Blood BLOOD SPECIMEN / Unknown Lab Venipuncture / Unknown 01/18/2014 4:46 PM TELEVISION NEWS PHOTOGRAPHER 01/18/2014 5:24 PM TELEVISION NEWS PHOTOGRAPHER Kai Arora MD LAB - LYNN MITCHELL [facility] [address] [place] [address] * CT ABDOMEN AND PELVIS WITH IV CONTRAST (12/05/2013 4:42 PM CDT) Anatomical Region Laterality Modality Abdomen, Pelvis Computed Tomogra phy 12/06/2013 8:04 AM CDT Impressions 12/06/2013 8:26 AM CDT 1. Small amount of free fluid in the pelvis, likely physiologic. 2. Normal appendix. 3. No hydronephrosis or hydroureter. Preliminary findings were discussed with Dr. Zee by Dr. Gimenez at 5:25 PM on 12/05/2013. Narrative 12/06/2013 8:26 AM CDT EXAMINATION: Abdomen and pelvis CT with intravenous contrast HISTORY: 18-year-old with right lower quadrant and back pain for 4-5 months. COMPARISON: None available. Technique: Axial computed tomographic images of the abdomen and pelvis were obtained after the uneventful intravenous administration of 95 mL of Optiray-320. Coronal and sagittal reformatted images were also provided for review. Dose: CDTIvol: 3.5 mGy; DLP: 158.69 mGy-cm FINDINGS: The lung bases are clear without focal consolidation or pleural effusion. The imaged heart size is normal without pericardial effusion. The liver enhances homogeneously without focal lesions. There is no intra-or extrahepatic biliary ductal dilatation. The gallbladder is contracted. The adrenal glands, spleen, and pancreas are normal. The kidneys enhance symmetrically without hydronephrosis or focal abnormality. There is no hydroureter. The urinary bladder is mildly distended. The abdominal aorta is normal in course and caliber. The bowel is normal in course and caliber without evidence of obstruction or inflammation. The appendix is normal. Small amount of free fluid is noted within the pelvis, likely physiologic. The uterus appears normal for the patient's age. There is no retroperitoneal, mesenteric, or pelvic lymphadenopathy. Bone windows are normal without evidence of suspicious lytic or blastic osseous lesions. The vertebral body heights are normal. There are no fractures. Procedure Note Rea Alaniz MD - 12/06/2013 EXAMINATION: Abdomen and pelvis CT with intravenous contrast HISTORY: 18-year-old with right lower quadrant and back pain for 4-5 months. COMPARISON: None available. Technique: Axial computed tomographic images of the abdomen and pelvis were obtained after the uneventful intravenous administration of 95 mL of Optiray-320. Coronal and sagittal reformatted images were also provided for review. Dose: CDTIvol: 3.5 mGy; DLP: 158.69 mGy-cm FINDINGS: The lung bases are clear without focal consolidation or pleural effusion. The imaged heart size is normal without pericardial effusion. The liver enhances homogeneously without focal lesions. There is no intra-or extrahepatic biliary ductal dilatation. The gallbladder is contracted. The adrenal glands, spleen, and pancreas are normal. The kidneys enhance symmetrically without hydronephrosis or focal abnormality. There is no hydroureter. The urinary bladder is mildly distended. The abdominal aorta is normal in course and caliber. The bowel is normal in course and caliber without evidence of obstruction or inflammation. The appendix is normal. Small amount of free fluid is noted within the pelvis, likely physiologic. The uterus appears normal for the patient's age. There is no retroperitoneal, mesenteric, or pelvic lymphadenopathy. Bone windows are normal without evidence of suspicious lytic or blastic osseous lesions. The vertebral body heights are normal. There are no fractures. IMPRESSION 1. Small amount of free fluid in the pelvis, likely physiologic. 2. Normal appendix. 3. No hydronephrosis or hydroureter. Preliminary findings were discussed with Dr. Zee by Dr. Gimenez at 5:25 PM on 12/05/2013. Aubrie Almanzar LIGHT TRUCK DRIVER-BODY BUMPER CT ORDERABLE S Care Teams Crop Or Grain Farmworker Relationship Specialty Start Date End Date Moses Goode MD [address] [place] [address] [address] [place] [address] PCP - General 04/08/18
--- OUTSIDE RECORDS SUMMARY | 2024-04-21 03:10 | XMS_ITS | Clinical Summary ---
Author Organization [facility] [place] Address [address] [place] [address] Care Team Providers Care Seasonal Customer Service Associate Name Role Phone Moses Goode MD Primary Care Provider [phone] Source Comments [facility],non-owned Affiliates and Associated Physician Practices is amultiple site organization consisting of ambulatory clinics and hospital sitesin [place], [place], [place] and [place]. This disclosure is being madepursuant to the Care Everywhere program and may not contain all information available regarding this patient. Last updated 17.[facility] [place] Allergies Active Allergy Reactions Criticality Noted Date [...] as needed for Itching. Indications: Hayfever Active Tlehryns-Tsm-It-FA ( VITAMIN WITH IRON) tablet Take 1 [...] by mouth 4 times daily Active Biotin 15452 MCG TABS Active HYDROcodone-acetam inophen (NORCO) 5-325 MG tablet Take 1 tablet by mouth every 6 hours as needed for Pain Active docusate sodium (COLACE) 100 MG capsule Take 100 mg by mouth once daily Active fluticasone propionate (FLONASE) 50 MCG/ACT nasal spray [place] 2 sprays into each nostril once daily [...] pelvic pain in female 07/13/2015 Dysuria 07/13/2015 Encounters Date Type Department Care Team Description 02/24/2024 Refill [facility] [address] [place] [address] Mendoza Lennon Jr., MD MEDICATION REFILL from Last 3 Months Immunizations Name Administration Dates Next Due INFLUENZA VACCINE, QUADR. (F LUZONE; FLULAVAL; FLUARIX; AFLURIA QUADRIVALENT; 6MO+), 0.5 ML (IIV4) 12/14/2019 Family History * Patient is adopted Medical History Relation Name Comments Diabetes - Type 2 Mother Asthma Neg Hx CVA Neg Hx Cancer - Breast Neg Hx Cancer - Other Neg Hx Cancer - Skin, Melanoma Neg Hx Cancer - Skin, Non Melanoma Neg Hx Eczema Neg Hx Hemophilia Neg Hx Psoriasis Neg Hx Relation Name Status Comments Mother Alive Social History Tobacco Use Types Packs/Day [...] Comments Blood Pressure 146/91 02/22/2020 9:04 AM PROTECTION ENGINEER Pulse 110 02/22/2020 9:04 AM PROTECTION ENGINEER Temperature 36.2 C (97.1 F) 02/22/2020 9:04 AM PROTECTION ENGINEER Respiratory Rate 16 02/22/2020 9:04 AM PROTECTION ENGINEER Oxygen Saturation 98% 02/22/2020 9:04 AM PROTECTION ENGINEER Inhaled Oxygen Concentration - - Weight 72.6 kg (160 lb) 02/22/2020 9:04 AM PROTECTION ENGINEER Height 154.9 cm (5' 1 ) 02/22/2020 9:04 AM PROTECTION ENGINEER Body Mass Index 30.23 02/22/2020 9:04 AM PROTECTION ENGINEER Plan of Treatment Health Maintenance Due Date Last Done Comments PAP SMEAR 1995 HIV SCREENING 2012 HPV VACCINE (1 - 3-dose series) 2012 HEPATITIS C SCREENING 08/15/2015 DTAP/TDAP/TD VACCINES (1 - Tdap) 2016 HEPATITIS B VACCINE (1 of 3 - 19+ 3-dose series) 2016 PNEUMOCOCCAL VACCINE (1 of 2 - PCV) 2016 COVID-19 VACCINE ( - 2023-2 5 season) 2023 INFLUENZA VACCINE (#1) 2023 12/14/2019 DEPRESSION SCREENING 03/11/2024 ZOSTER VACCINE (1 of 2) 08/20/2047 HIB VACCINE Aged Out No longer eligi ble based on patient's age to complete this topic MENINGOCOCCAL (Group B) VACCINE Aged Out No longer eligible based on patient's age to complete this topic MENINGOCOCCAL VACCINE Aged Out No niraj lakisha eligible based on patient's age to complete this topic Advance Directives Documents on File Type Date Recorded Patient Receivable Clerk Expl anation Adv Directive/Living Will/POA 01/25/2014 7:47 AM Care Teams Seasonal Customer Service Associate Relationship Specialty Start Date End Date Moses Goode MD [facility] [address] [address] PCP - General 04/08/18
--- OUTSIDE RECORDS SUMMARY | 2024-04-21 03:11 | XMS_ITS | Data Portability ---
Author Organization [facility] [place] Address [address] [place] [address] [place] [address] Care Team Providers Care Tugboat Dispatcher Name Role Phone ADAMARIS MAXWELL Primary Care Provider Assessment Encounter Date Assessment Date Assessment LastModified by Organization Details LastModified Time 01/16/2022 01/16/2022 Patient is ___weeks . Discussed plan. [email or web address] Not available 01/16/2022 12:25:22 02/28/2022 02/28/2022 plan kyleena when starts menstrual cycle, reviewed risks benefits, f/u pcp as scheduled schedule 2 hour GTT Not available 02/28/2022 14:18:28 Plan of Treatment Reminders Order Date Submit Date Provider Last Modified By Organization Details Last Modified Time Details Appointments None recorded. Lab None recorded. Referral None recorded. Procedures None recorded. Surgeries None recorded. Imaging non-stress test 2021 022 [email or web address] [address], [address], [place], [address], 14:09:17 US, obstetric, biophysical profile + non-stress test 2021 022 [email or web address] [place], [address], [address], [place], [address], 08:36:52 non-stress test 2021 022 [email or web address] [address], [address], [place], [address], 12:28:48 Medication Orders None recorded. Patient TargetsNo targets recorded. Patient InstructionsNo instructions recorded. Reason for Referral None Reported. Results Created Date Observation Date Name Description Value Unit Range Abnormal Flag Note LastModifiedBy Organization Detail LastModifiedTime 12/22/19 22 12/21/2021 [facility] DRUG SCREE N W/CON FIRMA TION (19 DRUGS ) synthetic cannabinoids , ql, (U) NEGATI VE negati ve Not Available [facility] [address] [place], [address], 12/28/2021 04:07:01 12/22/1912/21/2021 [facility] DRUG SCREE N W/CON FIRMA TION (19 DRUGS ) comment Juni sis inclu reji presu mptiv e scree anna (LC/M S/MS) for the follo wing Synth etic Canna binoi ds. Refle x confi rmati on inclu reji defin itive juni sis (LC/M S/MS) . Synth etic Canna binoi ds Cutof f AB-FU BINAC A M2 2.0 ng/mL AB-PI NACA N-pen tanoi c acid 2.0 ng/mL AKB48 N-pen tanoi c acid 0.2 ng/mL BB-22 3-car boxyi ndole 2.0 ng/mL 5-Flu kathie-P B-22 3-car boxyi ndole 2.0 ng/mL PB-22 3-car boxyi ndole 2.0 ng/mL UR-14 4 N-pen tanoi c acid 0.2 ng/mL AB-CH MINAC A M2 2.0 ng/mL ADB-P INACA N-pen tanoi c acid 2.0 ng/mL ADBIC A N-pen tanoi c acid 2.0 ng/mL JWH-0 73 N-but anoic acid 0.2 ng/mL JWH-0 18 N-pen tanoi c acid 0.2 ng/mL This test was devel oped and its juni tical perfo rmanc e sary cteri stics have been deter mined by [facility]. It has not been clear ed or appro cricket by FDA. This assay has been valid ated pursu ant to the CLIA regul ation s and is used for clini francisco purpo ses. Not Available [facility] [place], [address], 12/28/2021 04:07:01 12/22/19 22 12/21/2021 S DRUG SCREE N W/CON FIRMA TION (19 DRUGS ) alcohol metabolites NEGATI VE NG/mL <500 Not Available [facility] [address] [place], [place] [address], [place], [address], 12/28/2021 04:07:01 12/22/19 22 12/21/2021 [facility] DRUG SCREE N W/CON FIRMA TION (19 DRUGS ) buprenorphin e, ql NEGATI VE NG/mL <5 Not Available [facility] [address] [place], [place] [address], [place], [address], 12/28/2021 04:07:01 12/22/19 22 12/21/2021 S DRUG SCREE N W/CON FIRMA TION (19 DRUGS ) fentanyl, ql NEGATI VE NG/mL <0.5 Not Available [facility] [address] [place] [address], [address], 12/28/2021 04:07:01 12/22/19 22 12/21/2021 S DRUG SCREE N W/CON FIRMA TION (19 DRUGS ) 6 acetylmorphi ne NEGATI VE NG/mL <10 Not Available [facility] [address] [place] [address], [address], 12/28/2021 04:07:01 12/22/19 22 12/21/2021 S DRUG SCREE N W/CON FIRMA TION (19 DRUGS ) MDMA NEGATI VE NG/mL <500 Not Available [facility] [address] [place] [address], [address], 12/28/2021 04:07:01 12/22/19 22 12/21/2021 [facility]UG SCREE N W/CON FIRMA TION (19 DRUGS ) desmethyltra madol NEGATI VE NG/mL <100 Not Available [facility] [address], [place], [address], 12/28/2021 04:07:01 12/22/19 22 12/21/2021 [facility] DRUG SCREE N W/CON FIRMA TION (19 DRUGS ) tramadol NEGATI VE NG/mL <100 Not Available [facility] [address], [place], [address], 12/28/2021 04:07:01 12/22/1912/21/2021 S DRUG SCREE N W/CON FIRMA TION (19 DRUGS ) tramadol comments See LDT Notes Not Available [facility] [address], [place], [address], 12/28/2021 04:07:01 12/22/19 22 12/21/2021 [facility] SCREE N W/CON FIRMA TION (19 DRUGS ) ritalinic acid NEGATI VE NG/mL <100 Not Available [facility] [address] [place], [address], 12/28/2021 04:07:01 12/22/19 22 12/21/2021 [facility]UG SCREE N W/CON FIRMA TION (19 DRUGS ) ritalinic acid comments See LDT Notes Not Available [facility] [address] [place], [address], 12/28/2021 04:07:01 12/22/19 22 12/21/2021 [facility] SCREE N W/CON FIRMA TION (19 DRUGS ) amphetamines NEGATI VE NG/mL <500 Not Available [facility] [address] [place], [address], 12/28/2021 04:07:01 12/22/19 22 12/21/2021 [facility] DRUG SCREE N W/CON FIRMA TION (19 DRUGS ) barbiturates NEGATI VE NG/mL <300 Not Available [facility] [address] [place] [address], [address], 12/28/2021 04:07:01 12/22/1912/21/2021 [facility] DRUG SCREE N W/CON FIRMA TION (19 DRUGS ) benzodiazepi conor NEGATI VE NG/mL <100 Not Available [facility] [address] [place] [address], [address], 12/28/2021 04:07:01 12/22/1912/21/2021 [facility] DRUG SCREE N W/CON FIRMA TION (19 DRUGS ) cocaine metabolite NEGATI VE NG/mL <150 Not Available [facility] [address] [place] [address], [address], 12/28/2021 04:07:01 12/22/19 22 12/21/2021 [facility] DRUG SCREE N W/CON FIRMA TION (19 DRUGS ) marijuana metabolite POSITI VE NG/mL <20 abnormal Not Available [facility] [address] [place] [address], [address], 12/28/2021 04:07:01 12/22/1912/21/2021 [facility] DRUG SCREE N W/CON FIRMA TION (19 DRUGS ) marijuana metabolite 792 NG/mL <5 high Not Available [facility] [address] [place] [address], [address], 12/28/2021 04:07:01 12/22/1912/21/2021 [facility] DRUG SCREE N W/CON FIRMA TION (19 DRUGS ) marijuana comments See Diann aldana Notes , LDT Notes Not Available [facility] [address] [place], [address], 12/28/2021 04:07:01 12/22/19 22 12/21/2021 [facility] DRUG SCREE N W/CON FIRMA TION (19 DRUGS ) methadone metabolite NEGATI VE NG/mL <100 Not Available [facility] [address] [place], [place] [address], [place], [address], 12/28/2021 04:07:01 12/22/19 22 12/21/2021 [facility] DRUG SCREE N W/CON FIRMA TION (19 DRUGS ) opiates NEGATI VE NG/mL <100 Not Available [facility] [address] [place] [address], [address], 12/28/2021 04:07:01 12/22/19 22 12/21/2021 [facility] DRUG SCREE N W/CON FIRMA TION (19 DRUGS ) oxycodone NEGATI VE NG/mL <100 Not Available [facility] [address] [place], [address], 12/28/2021 04:07:01 12/22/19 22 12/21/2021 [facility] DRUG SCREE N W/CON FIRMA TION (19 DRUGS ) phencyclidin e NEGATI VE NG/mL <25 Not Available [facility] [address] [place], [address], 12/28/2021 04:07:01 12/22/19 22 12/21/2021 [facility] DRUG SCREE N W/CON FIRMA TION (19 DRUGS ) eszopiclone NEGATI VE NG/mL <5 Not Available [facility] [address] [place], [address], 12/28/2021 04:07:01 12/22/19 22 12/21/2021 [facility] DRUG SCREE N W/CON FIRMA TION (19 DRUGS ) eszopiclone metabolite NEGATI VE NG/mL <5 Not Available [facility] [address] [place], [address], 12/28/2021 04:07:01 12/22/19 22 12/21/2021 [facility] DRUG SCREE N W/CON FIRMA TION (19 DRUGS ) eszopiclone comments See LDT Notes Not Available [facility] [address] [place], [address], 12/28/2021 04:07:01 12/22/19 22 12/21/2021 [facility] DRUG SCREE N W/CON FIRMA TION (19 DRUGS ) zolpidem NEGATI VE NG/mL <5 Not Available [facility] [place], [address], 12/28/2021 04:07:01 12/22/19 22 12/21/2021 [facility] DRUG SCREE N W/CON FIRMA TION (19 DRUGS ) zolpidem metabolite NEGATI VE NG/mL <5 Not Available [facility] [address] [place], [address], 12/28/2021 04:07:01 12/22/19 22 12/21/2021 [facility] DRUG SCREE N W/CON FIRMA TION (19 DRUGS ) zolpidem comments See LDT Notes Not Available [facility] [address] [place], [address], 12/28/2021 04:07:01 12/22/19 22 12/21/2021 [facility] DRUG SCREE N W/CON FIRMA TION (19 DRUGS ) creatinine 118.7 mg/dL > or = 20.0 Not Available [facility] [address] [place], [address], 12/28/2021 04:07:01 12/22/19 22 12/21/2021 [facility] DRUG SCREE N W/CON FIRMA TION (19 DRUGS ) pH 7.8 4.5-9. 0 Not Available [facility] [address] [place], [address], 12/28/2021 04:07:01 12/22/19 22 12/21/2021 [facility] DRUG SCREE N W/CON FIRMA TION (19 DRUGS ) oxidant NEGATI VE mcg/m L <200 Not Available [facility] [address] [place] [address], [address], 12/28/2021 04:07:01 12/22/19 22 12/21/2021 [facility] DRUG SCREE N W/CON FIRMA TION (19 DRUGS ) notes and comments This drug testi ng is for medic al treat ment only. Ujni sis was perfo rmed as non-f orens ic testi ng and these resul ts shoul d be used only by healt hcare provi ders to rende r diagn osis or treat ment, or to monit or progr ess of medic al condi tions . Marij uana Notes : Marij uana Metab olite detec becka is consi stent with expos ure to Marij uana (THC) and/o r hemp deriv ed produ cts. Some juris dicti ons do not inclu de hemp withi n the defin ition of Marij uana. LDT Notes : Confi rmati on tests were devel oped and their juni tical perfo rmanc e sary cteri stics have been deter mined by [facility]. It has not been clear ed or appro cricket by the FDA. This assay has been valid ated pursu ant to the CLIA regul ation s and is used for clini francisco purpo ses. Healt hcare Provi ders needi ng Inter preta tion moises tance , pleas e conta ct us at 1.877 .40.R XTOX ( [phone] .69 ) M-F, 8am to 10pm EST Note 1 This drug testi ng is for medic al treat ment only. Juni sis was perfo rmed as non-f orens ic testi ng and these resul ts shoul d be used only by healt [facility] provi ders to rende r diagn osis or treat ment, or to monit or progr ess of medic al condi tions . For moises tance with inter preti ng these drug resul ts, pleas e conta ct a [facility] Toxic ology Speci alist : -40-R X TOX ( [phone] ), M-F, 8am-6 pm EST. Not Available [facility] [address] [place], [address], 12/28/2021 04:07:01 12/22/19 22 12/21/2021 [facility] DRUG SCREE N W/CON FIRMA TION (19 DRUGS ) always message See Note 1 Perfo rming Organ izati on Infor matio n: Site ID: AT Name: [facility]Mil anta Addre ss: [address] [place] [address] Direc tor: Dr Abelino Casillas Site ID: CB Name: [facility]Schmid d Trip Addre ss: [address] [place] [address] Direc tor: Luna saucedo M.D. Not Available [facility] [address] [place], [address], 12/28/2021 04:07:01 12/22/19 22 12/21/2021 drug scree n, urine Amphetamines : negati ve Not Available [facility] [address], [place], [address], 12/21/2021 14:36:29 12/22/19 22 12/21/2021 drug scree n, urine Cannabinoids : negati ve Not Available [facility] [address], [place], [address], 12/21/2021 14:36:29 12/22/19 22 12/21/2021 drug scree n, urine Cocaine: negati ve Not Available [facility] [address], [place], [address], 12/21/2021 14:36:29 12/22/19 22 12/21/2021 drug scree n, urine Opiates: negati ve Not Available [facility] [address], [place], [address], 12/21/2021 14:36:29 12/22/19 22 12/21/2021 drug scree n, urine Phenocyclidi ne: negati ve Not Available [facility] [address], [place], [address], 12/21/2021 14:36:29 12/22/19 22 12/21/2021 drug scree n, urine Barbiturates : negati ve Not Available [facility] [address], [place], [address], 12/21/2021 14:36:29 12/22/19 22 12/21/2021 drug scree n, urine Benzodiazepi conor: positi ve Not Available [facility] [address], [place], [address], 12/21/2021 14:36:29 12/22/19 22 12/21/2021 drug scree n, urine Ethanol: negati ve Not Available [facility] [address], [place], [address], 12/21/2021 14:36:29 12/22/19 22 12/21/2021 drug scree n, urine Hallucinogen s: negati ve Not Available [facility] [address], [place], [address], 12/21/2021 14:36:29 12/22/19 22 12/21/2021 drug scree n, urine Inhalants: negati ve Not Available [facility] [address], [place], [address], 12/21/2021 14:36:29 12/22/19 22 12/21/2021 drug scree n, urine Anabolic Steroids: negati ve Not Available [facility] [address], [place], [address], 12/21/2021 14:36:29 12/22/19 22 12/21/2021 drug scree n, urine Other: positi ve Not Available [facility] [address], [place], [address], 12/21/2021 14:36:29 01/11/20 22 01/10/2022 HEMOG LOBIN A1C hemoglobin A1C 5.6 % 0-5.6 The Ameri can [employer] iatio n recom mends that a prima ry goal of thera py shoul d be a HBA1C of < 7% and that physi cians shoul d reeva luate the treat ment regim en in patie nts with HBA1C value s consi stent ly > 8%. <5.7% Abbey l 5.7 - 6.4% Incre ased risk for diabe jaya >=6.5 % Diagn ostic of diabe jaya <7.0% Goal of thera py >8.0% Actio n sugge sted Not Available [facility] (Lab) [address], [place], [address], 01/11/2022 05:04:51 01/11/20 22 01/10/2022 CULTU RE: GROUP B STREP SCREE N result report SEE RESULT S BELOW abnormal Test: Cultu re: Group B Strep Scree n - Vagin al/Re ctal Speci men Sourc e: Vagin a/Rec carlos Speci men Type: Vagin al/Re ctal Speci men Date: 2021 4:07 PM Resul t Date: 2021 6:00 PM Resul t Statu s: Final resul t Abnor mal: Yes Resul sincere Lab: [facility] [address] [facility] [address] Tel: CULTU RE ----- ----- ----- --- Posit rudy for Strep tococ cus agala ctiae (Grou p B) (Abno rmal) Strep tococ cus agala ctiae (Beta strep Group B Strep ) remai ns unive rsall y susce ptibl e to penic illin , cefaz alina and vanco mycin . If clind amyci n is being consi dered for intra partu m proph ylaxi s, pleas e conta ct the lab withi n 5 days. Not Available [facility] (Lab) [address] [place], [address], 01/13/2022 19:03:25 01/11/20 22 01/10/2022 S DRUG SCREE N W/CON FIRMA TION (19 DRUGS ) synthetic cannabinoids , ql, (U) NEGATI VE negati ve Not Available [facility] (Lab) [address] [place], [address], 01/14/2022 13:17:52 01/11/20 22 01/10/2022 S DRUG SCREE N W/CON FIRMA TION (19 DRUGS ) comment Juni sis inclu reji presu mptiv e scree anna (LC/M S/MS) for the follo wing Synth etic Canna binoi ds. Refle x confi rmati on inclu reji defin itive juni sis (LC/M S/MS) . Synth etic Canna binoi ds Cutof f AB-FU BINAC A M2 2.0 ng/mL AB-PI NACA N-pen tanoi c acid 2.0 ng/mL AKB48 N-pen tanoi c acid 0.2 ng/mL BB-22 3-car boxyi ndole 2.0 ng/mL 5-Flu kathie-P B-22 3-car boxyi ndole 2.0 ng/mL PB-22 3-car boxyi ndole 2.0 ng/mL UR-14 4 N-pen tanoi c acid 0.2 ng/mL AB-CH MINAC A M2 2.0 ng/mL ADB-P INACA N-pen tanoi c acid 2.0 ng/mL ADBIC A N-pen tanoi c acid 2.0 ng/mL JWH-0 73 N-but anoic acid 0.2 ng/mL JWH-0 18 N-pen tanoi c acid 0.2 ng/mL This test was ermias brunner and its juni tical perfo rmanc e sary cteri stics have been deter mined by [employer] [facility]. It has not been clear ed or appro cricket by FDA. This assay has been valid ated pursu ant to the CLIA regul ation s and is used for clini francisco purpo ses. Not Available [facility] (Lab) [address] [place], [address], 01/14/2022 13:17:52 01/11/20 22 01/10/2022 [facility]UG SCR[facility] N W/CON FIRMA TION (19 DRUGS ) alcohol metabolites NEGATI VE NG/mL <500 Not Available [facility] (Lab) [address] [place], [address], 01/14/2022 13:17:52 01/11/20 22 01/10/2022 [facility]UG SCREE N W/CON FIRMA TION (19 DRUGS ) buprenorphin e, ql NEGATI VE NG/mL <5 Not Available [facility] (Lab) [address] [place], [address], 01/14/2022 13:17:52 01/11/20 22 01/10/2022 [facility]UG SCREE N W/CON FIRMA TION (19 DRUGS ) fentanyl, ql NEGATI VE NG/mL <0.[address] [facility] (Lab) [address] [facility], [place], [address], 01/14/2022 13:17:52 01/11/20 22 01/10/2022 [facility] DRUG SCREE N W/CON FIRMA TION (19 DRUGS ) 6 acetylmorphi ne NEGATI VE NG/mL <10 Not Available [facility] (Lab) [address] [facility] [address], [place], [address], 01/14/2022 13:17:52 01/11/20 22 01/10/2022 [facility]UG SCREE N W/CON FIRMA TION (19 DRUGS ) MDMA NEGATI VE NG/mL <500 Not Available [facility] (Lab) [address] [facility] [address], [place], [address], 01/14/2022 13:17:52 01/11/20 22 01/10/2022 [facility]UG SCREE N W/CON FIRMA TION (19 DRUGS ) desmethyltra madol NEGATI VE NG/mL <100 Not Available [facility] (Lab) [address] [facility] [address], [place], [address], 01/14/2022 13:17:52 01/11/20 22 01/10/2022 [facility]UG SCREE N W/CON FIRMA TION (19 DRUGS ) tramadol NEGATI VE NG/mL <100 Not Available [facility] (Lab) [address] [facility] [address], [place], [address], 01/14/2022 13:17:52 01/11/20 22 01/10/2022 [facility]UG SCREE N W/CON FIRMA TION (19 DRUGS ) tramadol comments See LDT Notes Not Available [facility] (Lab) [address] [facility] [address], [place], [address], 01/14/2022 13:17:52 01/11/20 22 01/10/2022 [facility]UG SCREE N W/CON FIRMA TION (19 DRUGS ) ritalinic acid NEGATI VE NG/mL <100 Not Available [facility] (Lab) [address] [facility], [place], [address], 01/14/2022 13:17:52 01/11/20 22 01/10/2022 [facility]UG SCREE N W/CON FIRMA TION (19 DRUGS ) ritalinic acid comments See LDT Notes Not Available [facility] (Lab) [address] [facility], [place], [address], 01/14/2022 13:17:52 01/11/20 22 01/10/2022 [facility] SCREE N W/CON FIRMA TION (19 DRUGS ) amphetamines NEGATI VE NG/mL <500 Not Available [facility] (Lab) [address] [facility], [place], [address], 01/14/2022 13:17:52 01/11/20 22 01/10/2022 [facility]UG SCREE N W/CON FIRMA TION (19 DRUGS ) barbiturates NEGATI VE NG/mL <300 Not Available [facility] (Lab) [address] [facility] [address] [facility], [place], [address], 01/14/2022 13:17:52 01/11/20 22 01/10/2022 [facility] DRUG SCREE N W/CON FIRMA TION (19 DRUGS ) benzodiazepi conor NEGATI VE NG/mL <100 Not Available [facility] (Lab) [address] [facility], [place], [address], 01/14/2022 13:17:52 01/11/20 22 01/10/2022 [facility]UG SCREE N W/CON FIRMA TION (19 DRUGS ) cocaine metabolite NEGATI VE NG/mL <150 Not Available [facility] (Lab) [address] [facility], [place], [address], 01/14/2022 13:17:52 01/11/20 22 01/10/2022 [facility] DRUG SCREE N W/CON FIRMA TION (19 DRUGS ) marijuana metabolite POSITI VE NG/mL <20 abnormal Not Available [facility] (Lab) [address] [facility], [place], [address], 01/14/2022 13:17:52 01/11/20 22 01/10/2022 [facility] DRUG SCREE N W/CON FIRMA TION (19 DRUGS ) marijuana metabolite 796 NG/mL <5 high Not Available [facility] (Lab) [address] [facility] [address] [facility], [place], [address], 01/14/2022 13:17:52 01/11/20 22 01/10/2022 [facility] DRUG SCREE N W/CON FIRMA TION (19 DRUGS ) marijuana comments See iDann aldana Notes , LDT Notes Not Available [facility] (Lab) [address] [facility], [place], [address], 01/14/2022 13:17:52 01/11/20 22 01/10/2022 [facility] DRUG SCREE N W/CON FIRMA TION (19 DRUGS ) methadone metabolite NEGATI VE NG/mL <100 Not Available [facility] (Lab) [address] [facility], [place], [address], 01/14/2022 13:17:52 01/11/20 22 01/10/2022 [facility] DRUG SCREE N W/CON FIRMA TION (19 DRUGS ) opiates NEGATI VE NG/mL <100 Not Available [facility] (Lab) [address] [place], [address], 01/14/2022 13:17:52 01/11/20 22 01/10/2022 [facility] DRUG SCREE N W/CON FIRMA TION (19 DRUGS ) oxycodone NEGATI VE NG/mL <100 Not Available [facility] (Lab) [address] [facility], [place], [address], 01/14/2022 13:17:52 01/11/20 22 01/10/2022 [facility] DRUG SCREE N W/CON FIRMA TION (19 DRUGS ) phencyclidin e NEGATI VE NG/mL <25 Not Available [facility] (Lab) [address] [facility], [place], [address], 01/14/2022 13:17:52 01/11/20 22 01/10/2022 [facility] DRUG SCREE N W/CON FIRMA TION (19 DRUGS ) eszopiclone NEGATI VE NG/mL <5 Not Available [facility] (Lab) [address] [facility], [place], [address], 01/14/2022 13:17:52 01/11/20 22 01/10/2022 [facility] DRUG SCREE N W/CON FIRMA TION (19 DRUGS ) eszopiclone metabolite NEGATI VE NG/mL <5 Not Available [facility] (Lab) [address] [facility], [place], [address], 01/14/2022 13:17:52 01/11/20 22 01/10/2022 [facility] DRUG SCREE N W/CON FIRMA TION (19 DRUGS ) eszopiclone comments See LDT Notes Not Available [facility] (Lab) [address] [facility], [place], [address], 01/14/2022 13:17:52 01/11/20 22 01/10/2022 [facility] DRUG SCREE N W/CON FIRMA TION (19 DRUGS ) zolpidem NEGATI VE NG/mL <5 Not Available [facility] (Lab) [address] [facility], [place], [address], 01/14/2022 13:17:52 01/11/20 22 01/10/2022 [facility] DRUG SCREE N W/CON FIRMA TION (19 DRUGS ) zolpidem metabolite NEGATI VE NG/mL <5 Not Available [facility] (Lab) [address] [facility], [place], [address], 01/14/2022 13:17:52 01/11/20 22 01/10/2022 [facility]UG SCREE N W/CON FIRMA TION (19 DRUGS ) zolpidem comments See LDT Notes Not Available [facility] (Lab) [address] [facility], [place], [address], 01/14/2022 13:17:52 01/11/20 22 01/10/2022 [facility] DRUG SCREE N W/CON FIRMA TION (19 DRUGS ) creatinine 55.3 mg/dL > or = 20.0 Not Available [facility] (Lab) [address], [place], [address], 01/14/2022 13:17:52 01/11/20 22 01/10/2022 [facility] DRUG SCREE N W/CON FIRMA TION (19 DRUGS ) pH 7.2 4.5-9. 0 Not Available [facility] (Lab) [address] [facility], [place], [address], 01/14/2022 13:17:52 01/11/20 22 01/10/2022 [facility] DRUG SCREE N W/CON FIRMA TION (19 DRUGS ) oxidant NEGATI VE mcg/m L <200 Not Available [facility] (Lab) [address], [place], [address], 01/14/2022 13:17:52 01/11/20 22 01/10/2022 S DRUG SCREE N W/CON FIRMA TION (19 DRUGS ) notes and comments This drug testi ng is for medic al treat ment only. Juni sis was perfo rmed as non-f orens ic testi ng and these resul ts shoul d be used only by healt hcare provi ders to rende r diagn osis or treat ment, or to monit or progr ess of medic al condi tions . Marij uana Notes : Marij uana Metab olite detec becka is consi stent with expos ure to Marij uana (THC) and/o r hemp deriv ed produ cts. Some juris dicti ons do not inclu de hemp withi n the defin ition of Marij uana. LDT Notes : Confi rmati on tests were devel oped and their juni tical perfo rmanc e sary cteri stics have been deter mined by [facility]. It has not been clear ed or appro cricket by the FDA. This assay has been valid ated pursu ant to the CLIA regul ation s and is used for clini francisco purpo ses. Healt hcare Provi ders needi ng Inter preta tion moises tance , pleas e conta ct us at 1.877 .40.R XTOX (. [phone] [phone] ) M-F, 8am to 10pm EST Note 1 This drug testi ng is for medic al treat ment only. Juni sis was perfo rmed as non-f orens ic testi ng and these resul ts shoul d be used only by healt hcare provi ders to rende r diagn osis or treat ment, or to monit or progr ess of medic al condi tions . For moises tance with inter preti ng these drug resul ts, pleas e conta ct a [facility] T[facility] o[facility] Speci alist : [phone] -40-R X TOX ( [phone] ), M-F, 8am-6 pm EST. Not Available [facility] (Lab) [address], [place], [address], 01/14/2022 13:17:52 01/11/20 22 01/10/2022 [facility] DRUG SCREE N W/CON FIRMA TION (19 DRUGS ) always message See Note 1 Perfo rming Organ izati on Infor sydney n: Site ID: AT Name: [facility] Addre ss: [address] [place] [address] Direc tor: Dr Abelino Casillas Site ID: CB Name: [facility] Addre ss: [address] [place] [address] Direc tor: Luna saucedo M.D. Not Available [facility] (Lab) [address], [place], [address], 01/14/2022 13:17:52 01/11/20 22 01/10/2022 drug scree n, urine Amphetamines : negati ve Not Available [address], [place], [address], 01/10/2022 12:44:27 01/11/20 22 01/10/2022 drug scree n, urine Cannabinoids : negati ve Not Available [address], [place], [address], 01/10/2022 12:44:27 01/11/20 22 01/10/2022 drug scree n, urine Cocaine: negati ve Not Available [address], [place], [address], 01/10/2022 12:44:27 01/11/20 22 01/10/2022 drug scree n, urine Opiates: negati ve Not Available [address], [place], [address], 01/10/2022 12:44:27 01/11/20 22 01/10/2022 drug scree n, urine Phenocyclidi ne: negati ve Not Available [address], [place], [address], 01/10/2022 12:44:27 01/11/20 22 01/10/2022 drug scree n, urine Barbiturates : negati ve Not Available [address], [place], [address], 01/10/2022 12:44:27 01/11/20 22 01/10/2022 drug scree n, urine Ethanol: negati ve Not Available [address], [place], [address], 01/10/2022 12:44:27 01/11/20 22 01/10/2022 drug scree n, urine Hallucinogen s: negati ve Not Available [address], [place], [address], 01/10/2022 12:44:27 01/11/20 22 01/10/2022 drug scree n, urine Inhalants: negati ve Not Available [address], [place], [address], 01/10/2022 12:44:27 01/11/20 22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 [facility] 13:55:[address] Concept Completed 201704/19/2020 Well woman check w/o abnormal finding; Recorded Elsewher e: No Locat ion: Jimmie kumar [facility] S ource: EHR Slurry Tank Operator eric: N Practi ce ID: 0001 Taco lable Time: 02:30:00 PM Yanna persaud [facility] 13:56:55 Gestatio n period, 31 weeks [id number] Completed 201904/19/2020 31 weeks gestatio n of pregnanc y;Record ed Elsewher e: No [facility] S ource: EHR Slurry Tank Operator eric: N Practi ce ID: 0001 Taco lable Time: 10:00:00 AM Yanna persaud [facility] 13:55:18 Dysuria [id number] Completed 201404/19/2020 Dysuria; Recorded Elsewher e: No Locat ion: [facility] S ource: EHR Slurry Tank Operator eric: N Bettieti ce ID: 0001 Taco lable Time: 11:30:00 AM Yanna Moss [facility] 13:54:57 Gestatio n period, 38 weeks [id number] Completed 201704/19/2020 38 weeks gestatio n of pregnanc y;Record ed Elsewher e: No Locat ion: [facility] Bettieti ce ID: 0001 Taco lable Time: 10:00:00 AM Yanna Moss [facility] 13:55:27 Lochia finding Completed 201704/19/2020 Encounte r for routine postpart um follow-u p;Record ed Elsewher e: No Locat ion: [facility] S ource: EHR Slurry Tank Operator eric: N Practi ce ID: 0001 Taco lable Time: 10:30:00 AM Yanna persaud [facility] 13:55:33 Pregnanc y, childbir th and puerperi um finding Completed 09/03/ 2018 04/19/2020 Oth pregnanc y related conditio ns, third trimeste r;Practi ce ID: 0001 Yanna persaud, [facility] 13:54:53 False labor before 37 complete d weeks of gestatio n [id number] Completed 201704/19/2020 False labor before 37 complete d weeks of gest, third tri;Prac ashanti ID: 0001 Yanna persaud, [facility] 13:55:01 Term pregnanc y delivere d [id number] Completed 201704/19/2020 Encounte r for full-ter m uncompli cated delivery ;Practic e ID: 0001 Yanna persaud, [facility] 13:56:57 Single live [id number] Completed 201704/19/2020 Single live ;Pr actice ID: 0001 Yanna persaud, [facility] 13:56:50 Gestatio n period, 39 weeks [id number] Completed 201704/19/2020 39 weeks gestatio n of pregnanc y;Practi ce ID: 0001 Yanna persaud, [facility] 13:55:28 Antenata l screenin g Completed 201804/19/2020 Encounte r for other specifie d antenata l screenin g;Practi ce ID: 0001 Yanna persaud, [facility] 13:54:50 Gestatio n period, 15 weeks [id number] Completed 201804/19/2020 15 weeks gestatio n of pregnanc y;Practi ce ID: 0001 Yanna persaud, [facility] 13:55:14 Postoper ative follow-u p visit Completed 201404/19/2020 Follow-u p examinat ion, followin g unspecif ied surgery; Recorded Elsewher e: No Locat ion: [facility] S ource: EHR Slurry Tank Operator eric: N Practi ce ID: 0001 Taco lable Time: 03:15:00 PM Yanna persaud, [facility] 13:55:39 Infectio n screenin g Completed 201804/19/2020 Encounte r for screenin g for oth infec/pa rastc diseases ;Recorde d Elsewher e: No Locat ion: [facility] S ource: EHR Slurry Tank Operator eric: N Practi ce ID: 0001 Taco lable Time: 11:00:00 AM Yanna persaud, [facility] 13:55:31 Increase d frequenc y of urinatio n [id number] Completed 201404/19/2020 Urinary frequenc y;Practi ce ID: 0001 Yanna Moss [facility], [facility] 13:55:30 Disease of nervous system complica ting pregnanc y, childbir th and puerperi um [id number] Completed 201704/19/2020 Diseases of the nervous sys comp pregnanc y, third trimeste r;Practi ce ID: [address] [facility] 13:54:55 Problem Notes None recorded. Procedures Surgical History Date Name Laterality Status Provider Name and Address Organization Details Recorded Time 09/21/19 21 IUD Removal completed Suyapa Rivera CNM [address], [place], [address], [facility] 09/20/2020 12:19:21 06/23/19 21 Nsl/sins ndsc surg max sins completed Beth Julio [facility] 06/23/2020 09:51:10 02/11/20 21 IUD Insertion completed Kathi Keys [facility] 04/21/2020 14:04:46 04/20/19 21 IUD Insertion completed Yanna Moss [facility] 04/19/2020 13:53:09 04/20/19 21 Date of Last Pap Smear completed Yanna Moss [facility] 04/19/2020 14:21:38 12/30/19 20 IUD Removal completed Jerel Harper MD [address], [place], [address], [facility] 12/30/2019 18:26:39 11/14/19 20 IUD Insertion completed Jerel Harper MD [address], [place], [address], [facility] 11/14/2019 10:31:19 11/11/19 20 LAPAROSCOPY, DIAGNOSTIC (SURG) completed Amy Campos [facility] 07/27/2020 10:33:02 08/27/19 20 IUD Insertion completed Kathi Keys [facility] 08/27/2019 10:27:18 03/11/19 15 Laparoscopy completed Es Rodriguez [facility] 07/01/2019 14:53:05 03/11/19 14 tympanostomy completed Beth Julio [facility] 09/20/2020 12:13:56 03/11/19 14 tonsillectomy and adenoidectomy completed Beth Julio [facility] 09/20/2020 12:13:51 03/11/19 13 termination of completed Beth Julio [facility] 01/14/2021 09:33:12 Imaging Results Imaging Date Name Status LastModified by Organiz ation Details LastModified Time 12/26/2021 US, obstetric, follow-up completed [address], [place], [address], 12/26/2021 13:09:11 12/26/2021 US, obstetric, follow-up completed [email or web address], [place], [address], 12/26/2021 15:14:58 01/10/2022 non-stress test completed [address], [place], [address], 01/10/2022 13:53:51 01/12/2022 non-stress test completed [email or web address], [place], [address], 01/13/2022 22:35:41 01/16/2022 non-stress test completed [address], [place], [address], 01/16/2022 12:28:53 01/16/2022 US, obstetric, follow-up completed [email or web address], [facility], [place], [address], 01/17/2022 18:47:02 01/16/2022 US, obstetric, biophysical profile + non-stress test completed [address], [place], [address], 01/16/2022 15:31:56 Procedure Notes None recorded. Medical Equipment None Reported. Allergies Allergen ID Allergen Name Allergen Category Reaction Reaction Severity Criticality Documentation Date Start Date Code Code System Note Provider Name and Address Organization Details Recorded Time 300 amoxicill in medicatio n Not available Not available Not available 07/01/2019 723 RxNorm Es Rodriguez [place], [place] - [facility] 0 14:50:14 301 Product containin g penicilli n and antibioti c (product) medicatio n Not available Not available Not available 07/01/2019 24495 05 [address]OM[address] Es Rodriguez [facility] 0 14:50:23 Medications Name Sig Start Date Stop Date Status Note LastModified by Organization Details LastModified Time fluoxetin e 40 mg capsule TAKE 1 CAPSULE BY MOUTH EVERY DAY active Not Available Not Available No t Available cyclobenz aprine 10 mg tablet TAKE 1 TABLET TWICE A DAY, NEEDED FOR CHRONIC GENERALI ZED PAIN. 07/04 completed Not Available Not Available Not Available buspirone 5 mg tablet take 1 tablet by oral route 3 times every day 05/03 completed Prescrib ed Elsewher e: Yes Loca tion: [facility] odify By: heraclio malone DateTime : 09/16/19 15 11:30:00 AM Not Available Not Available Not Available acetamino phen 325 mg tablet take 1 tablet by oral route every 4 hours as needed 08/26 completed Not Available Not Available Not Available nicotine 14 mg/24 hr daily transderm al patch 04/21 completed Not Available Not Available Not Available Celexa 10 mg tablet take 1 tablet by oral route every day 09/15 completed Prescrib ed Elsewher e: Yes Loca tion: [facility] odify By: wander arias DateTime : 11/17/19 14 03:30:00 PM Not Available Not Available Not Available clindamyc in HCl 300 mg capsule TAKE 1 CAPSULE (300 MG TOTAL) BY MOUTH TWO TIMES A DAY FOR 7 DAYS. 09/22 completed Not Available Not Available Not Available trazodone 50 mg tablet TAKE 1 TABLET BY MOUTH NIGHTLY NEEDED FOR SLEEP 07/04 completed Not Available Not Available Not Available azithromy shiv 250 mg tablet TAKE 2 TABLETS BY MOUTH TODAY, THEN TAKE 1 TABLET DAILY FOR 4 DAYS 07/04 completed Not Available Not Available Not Available ibuprofen 800 mg tablet TAKE 1 TABLET 3 TIMES A DAY BY ORAL ROUTE NEEDED. active Not Available Not Available No t Available fluconazo le 150 mg tablet Take 1 tablet by oral route. 11/15 completed Not Available Not Available Not Available levetirac etam 500 mg tablet TAKE 1 TABLET BY MOUTH EVERY 12 HOURS 09/20 completed Not Available Not Available Not Available cephalexi n 250 mg capsule TAKE 1 CAPSULE BY MOUTH EVERY 6 HOURS UNTIL GONE 01/10 completed Not Available Not Available Not Available hydrocodo ne 5 mg-acetam inophen 325 mg tablet Take 1 tablet every 6 hours by oral route as needed. 10/18 completed Not Available Not Available Not Available prazosin 1 mg capsule 03/14 completed Not Available Not Available Not Available ondansetr on HCl 8 mg tablet TAKE 1/2 TABLET BY ORAL ROUTE EVERY 6 HOURS NEEDED 08/26 completed Not Available Not Available Not Available ibuprofen 200 mg capsule take 1 capsule by oral route every 6 hours as needed 05/03 completed Prescrib ed Elsewher e: Yes Loca tion: [facility] odify By: heraclio malone DateTime : 09/16/19 15 11:30:00 AM Not Available Not Available Not Available Effexor XR 37.5 mg capsule,e xtended release take 1 capsule by oral route every day with food 11/11 completed Prescrib ed Elsewher e: Yes Loca tion: [facility] odify By: maurizio malone DateTime : 10/15/19 19 11:00:00 AM Not Available Not Available Not Available metronida zole 0.75 % (37.5 mg/5 gram) vaginal gel INSERT 1 APPLICAT ORFUL BY VAGINAL ROUTE AT BEDTIME FOR 5 NIGHTS 09/20 completed Not Available Not Available Not Available ondansetr on HCl 4 mg tablet TAKE 1 TABLET BY MOUTH EVERY 6 HOURS NEEDED 02/28 completed Not Available Not Available Not Available prednison e 20 mg tablet 02/28 completed Not Available Not Available Not Available clonazepa m 0.5 mg tablet TAKE 1 TABLET BY MOUTH 2 TIMES A DAY. active Not Available Not Available No t Available sertralin e 100 mg tablet 04/21 completed Not Available Not Available Not Available olanzapin e 5 mg tablet TAKE 1 TABLET BY MOUTH AT BEDTIME active Not Available Not Available No t Available clindamyc in HCl 150 mg capsule TAKE 1 CAPSULE BY MOUTH EVERY 8 HOURS FOR 5 DAYS 03/14 completed Not Available Not Available Not Available hydroxyzi ne pamoate 50 mg capsule TAKE 1 CAPSULE BY MOUTH TWICE A DAY NEEDED FOR ANXIETY 07/04 completed Not Available Not Available Not Available metronida zole 500 mg tablet TAKE 1 TABLET BY MOUTH EVERY 12 HOURS 12/21 completed Not Available Not Available Not Available acetamino phen 300 mg-codein e 30 mg tablet 08/26 completed Not Available Not Available Not Available ciproflox acin 500 mg tablet Take 1 tablet every 12 hours by oral route for 3 days. 12/10 completed Not Available Not Available Not Available sulfameth oxazole 800 mg-trimet hoprim 160 mg tablet Take 1 tablet every 12 hours by oral route. 04/20 completed Not Available Not Available Not Available olanzapin e 2.5 mg tablet TAKE 1 TABLET BY MOUTH EVERY DAY IN THE MORNING FOR 30 DAYS 02/28 completed Not Available Not Available Not Available tramadol 50 mg tablet TAKE 1-2 TABLETS BY MOUTH EVERY 8 HOURS NEEDED FOR PAIN. 07/04 completed Not Available Not Available Not Available quetiapin e 100 mg tablet 02/06 completed Not Available Not Available Not Available lamotrigi ne 25 mg tablet TAKE 3 TABLETS BY MOUTH TWICE A DAY 09/20 completed Not Available Not Available Not Available Zantac 150 mg tablet take 1 tablet by oral route 2 times every day 09/15 completed Prescrib ko [place] e: Yes Loca tion: [facility] odify By: [email or web address] E ncounter DateTime : 11/17/19 14 03:30:00 PM Not Available Not Available Not Available disulfira m 250 mg tablet TAKE 1 TABLET BY MOUTH EVERY DAY 09/20 completed Not Available Not Available Not Available ketorolac 10 mg tablet TAKE 1 TABLET BY MOUTH EVERY 6 HOURS 09/20 completed Not Available Not Available Not Available risperido ne 2 mg tablet TAKE 1 TABLET BY MOUTH TWICE A DAY FOR 7 DAYS 06/23 completed Not Available Not Available Not Available prazosin 5 mg capsule 10/18 completed Not Available Not Available Not Available carbamaze pine 200 mg tablet 04/21 completed Not Available Not Available Not Available propranol ol 10 mg tablet TAKE 1/2 TAB TWICE DAILY 09/20 completed Not Available Not Available Not Available ofloxacin 0.3 % ear drops 03/14 completed Not Available Not Available Not Available lorazepam 0.5 mg tablet TAKE 1 TABLET BY MOUTH EVERY DAY NEEDED FOR 7 DAYS 01/04 completed Not Available Not Available Not Available Depo-Prov era 150 mg/mL intramusc ular suspensio n inject 1 millilit er by intramus cular route every 3 months 05/03 completed Prescrib ed Elsewher e: No Locat ion: [facility] odify By: heraclio malone DateTime : 02/17/20 15 12:39:00 PM Not Available Not Available Not Available chlordiaz epoxide 25 mg capsule 04/21 completed Not Available Not Available Not Available tamsulosi n 0.4 mg capsule Take 1 capsule every day by oral route. 09/20 completed Not Available Not Available Not Available Compazine 5 mg tablet take 1 tablet by oral route every 4 hours as needed for nausea and vomiting 12/17 completed Prescrib ed Elsewher e: No Locat ion: [facility] odify By: [email or web address] Georgina r DateTime : 10/15/19 19 11:30:00 AM Not Available Not Available Not Available phenazopy ridine 100 mg tablet 02/06 completed Not Available Not Available Not Available hydrocodo ne 7.5 mg-acetam inophen 325 mg tablet TAKE 1 TABLET BY MOUTH EVERY 4 TO 6 HOURS NEEDED FOR PAIN 01/04 completed Not Available Not Available Not Available buspirone 10 mg tablet TAKE 1 TABLET BY MOUTH 3 TIMES A DAY 06/23 completed Not Available Not Available Not Available promethaz ine 25 mg tablet TAKE 1 TABLET BY MOUTH EVERY 6 HOURS NEEDED FOR NAUSEA AND VOMITING 04/21 completed Not Available Not Available Not Available benztropi ne 1 mg tablet 02/06 completed Not Available Not Available Not Available fluoxetin e 10 mg capsule 12/10 completed Not Available Not Available Not Available folic acid 1 mg tablet 06/14 completed Not Available Not Available Not Available gabapenti n 100 mg capsule TAKE 1 CAPSULE BY MOUTH TWICE A DAY FOR 14 DAYS 04/21 completed Not Available Not Available Not Available ibuprofen 600 mg tablet 01/04 completed Not Available Not Available Not Available albuterol sulfate HFA 90 mcg/actua tion aerosol inhaler INHALE 2 PUFFS EVERY 4 HOURS BY INHALATI ON ROUTE NEEDED active Not Available Not Available No t Available hydroxyzi ne HCl 10 mg tablet TAKE 1 TO 2 TABLETS BY MOUTH EVERY 6 HOURS NEEDED FOR ANXIETY active Not Available Not Available No t Available Paxil 10 mg tablet take 1 tablet by oral route every day 10/14 completed Prescrib ed Elsewher e: No Locat ion: [facility] odify By: [email or web address] z Encoun ter DateTime : 01/16/20 18 01:45:00 PM Not Available Not Available Not Available ondansetr on 4 mg disintegr ating tablet TAKE 1 TABLET BY MOUTH EVERY 8 HOURS NEEDED FOR NAUSEA AND VOMITING active Not Available Not Available No t Available cefdinir 300 mg capsule take 1 capsule by oral route every 12 hours 09/15 completed Prescrib ed Elsewher e: Yes Loca tion: [facility] odify By: [email or web address] Kumar ncotoir DateTime : 05/05/19 15 03:15:00 PM Not Available Not Available Not Available fluoxetin e 20 mg capsule TAKE 1 CAPSULE BY MOUTH EVERY DAY FOR 30 DAYS 09/22 completed Not Available Not Available Not Available fluticaso ne propionat e 50 mcg/actua tion nasal spray,sharath pension SPRAY 1 SPRAY BY INTRANAS AL ROUTE EVERY DAY active Not Available Not Available No t Available sertralin e 50 mg tablet take 1 tablet by oral route every day 10/18 completed Not Available Not Available Not Available risperido ne 1 mg tablet TAKE 1 TABLET BY MOUTH TWICE A DAY 09/20 completed Not Available Not Available Not Available dicyclomi ne 10 mg capsule 03/14 completed Not Available Not Available Not Available risperido ne 0.5 mg tablet TAKE 1 TABLET BY MOUTH TWICE A DAY 06/14 completed Not Available Not Available Not Available naproxen 500 mg tablet take 1 tablet by oral route 2 times every day with food 03/14 completed Not Available Not Available Not Available buspirone 15 mg tablet TAKE 1 TABLET BY MOUTH 3 TIMES A DAY. 07/04 completed Not Available Not Available Not Available hydroxyzi ne pamoate 25 mg capsule 04/21 completed Not Available Not Available Not Available Benadryl 25 mg capsule take 2 capsule by oral route every 4 - 6 hours as needed 03/14 completed Prescrib ed Elsewher e: Yes Loca tion: [facility] odify By: wander arias DateTime : 11/17/19 14 03:30:00 PM Not Available Not Available Not Available erythromy shiv with ethanol 2 % topical gel apply by topical route 2 times every day a thin layer to the affected area(s) in the morning and evening 01/15 completed Prescrib ed Elsewher e: No Locat ion: [facility] odify By: marshal clements DateTime : 06/27/19 18 02:30:00 PM Not Available Not Available Not Available dextroamp hetamine- amphetami ne ER 15 mg 24hr capsule,e xtend release TAKE 1 CAPSULE BY MOUTH EVERY DAY IN THE MORNING active Not Available Not Available No t Available escitalop monik 10 mg tablet TAKE 1 TABLET BY MOUTH EVERY DAY 07/04 completed Not Available Not Available Not Available aripipraz ole 10 mg tablet 02/06 completed Not Available Not Available Not Available cyclobenz aprine 5 mg tablet TAKE 1 TABLET 3 TIMES A DAY BY ORAL ROUTE NEEDED. active Not Available Not Available No t Available aripipraz ole 5 mg tablet 02/06 completed Not Available Not Available Not Available levonorge strel 0.15 mg-ethiny l estradiol 30 mcg tablets,3 mos pack(91) take 1 tablet by oral route every day 05/03 completed Prescrib ed Elsewher e: No Locat ion: [facility] odify By: heraclio malone DateTime : 01/12/20 15 05:15:00 PM Not Available Not Available Not Available nitrofura ntoin monohydra te/macroc rystals 100 mg capsule Take 1 capsule every 12 hours by oral route for 7 days. 10/18 completed Not Available Not Available Not Available biotin 03/14 completed Not Available Not Available Not Available Benadryl 03/14 completed Not Available Not Available Not Available Prozac 06/23 completed Not Available Not Available Not Available Tylenol 03/14 completed Not Available Not Available Not Available 06/14 completed Not Available Not Available Not Available Vivitrol 380 mg intramusc ular suspensio n,extende d release 09/20 completed Not Available Not Available Not Available quetiapin e 50 mg tablet TAKE 1 TABLET BY MOUTH TWICE A DAY 01/04 completed Not Available Not Available Not Available Midol 500 mg-25 mg tablet 05/03 completed Prescrib ed Elsewher e: Yes [facility] By: heraclio malone DateTime : 09/16/19 15 11:30:00 AM Not Available Not Available Not Available GaviLyte- N 420 gram oral solution 03/14 completed Not Available Not Available Not Available Slow Fe 142 mg (45 mg iron) tablet,ex tended release Take 1 tablet twice a day by oral route as directed . 2021 active Not Available Not Available Not Avai lable Lo Loestrin Fe 1 mg-10 mcg (24)/10 mcg (2) tablet take 1 tablet by oral route every day 09/15 completed Prescrib ed Elsewher e: No Locat ion: [facility] odify By: [email or web address] Vipin ncounter DateTime : 04/26/19 15 03:15:00 PM Not Available Not Available Not Available fluoxetin e 60 mg tablet TAKE 1 TABLET BY MOUTH EVERY DAY 04/21 completed Not Available Not Available Not Available OneTouch Verio test strips TEST BLOOD SUGAR 4 TIMES A DAY 02/28 completed Not Available Not Available Not Available Minastrin 24 Fe 1 mg-20 mcg (24)/75 mg (4) chewable tablet chew 1 tablet by oral route every day 02/10 completed Prescrib ed Elsewher e: Yes [facility] By: [email or web address] malone DateTime : 10/02/19 15 09:15:00 AM Not Available Not Available Not Available naloxone 4 mg/actuat ion nasal spray ADMINIST ER 1 SPRAY INTO ONE NOSTRIL. CALL 911. REPEAT AFTER 2-3 MIN IF NO OR MINIMAL RESPONSE 07/04 completed Not Available Not Available Not Available 28 mg-800 mcg tablet 03/14 completed Prescrib ed Adalid e: Yes Loca tion: [facility] Amy odrodrigo By: [email or web address] Encount er DateTime : 01/14/20 04:45:00 PM Not Available Not Available Not Available Kyleena 17.5 mcg/24 hr (up to 5 years) 19.5 mg intrauter ine device Take 1 device by intraute rine route. 09/20 completed Not Available Not Available Not Available Kyleena 04/21 completed Removal on 04/21/19 Not Available Not Available Not Available Incassia 0.35 mg tablet TAKE 1 TABLET BY MOUTH EVERY DAY 06/23 completed Not Available Not Available Not Available OneTouch Delica Plus Lancet 33 gauge TEST BLOOD SUGAR 4 TIMES A DAY 02/28 completed Not Available Not Available Not Available Fluzone Quad [id number] (PF) 60 mcg (15 mcg x 4)/0.5 mL IM syringe 08/26 completed Not Available Not Available Not Available OneTouch Verio Reflect Meter TEST BLOOD SUGAR 4 TIMES A DAY 02/28 completed Not Available Not Available Not Available Afluria Qd 2019- (36 mos up)(PF)60 mcg (15 mcg x4)/0.5 mL IM syringe 03/14 completed Not Available Not Available Not Available Vitals Date Recorded Body height Body mass index (BMI) Body weight Systolic blood pressure Diastolic blood pressure Provider Name and Address Organization Details Last Updated DateTime 01/16/2022 156.21 cm 40.9 kg/m2 71676.32 14 g 117 mm[Hg] 78 mm[Hg] Beth Julio [facility] 12:25:59 Date Recorded Body height Body mass index (BMI) Systolic blood pressure Diastolic blood pressure Provider Name and Address Organization Details Last Updated DateTime 02/28/2022 156.21 cm 34.8 kg/m2 151 mm[Hg] 84 mm[Hg] Beth Julio [facility] 02/28/2022 13:14:04 Date Recorded Body weight Provider Name an d Address Organization Details Last Updated DateTime 02/28/2022 99393.75988 g Janice Chanell [facility] 06/25/2022 16:45:43 Social History Question Answer Notes LastModified by Organizat ion Details LastModified Time Tobacco Smoking Status Never Smoker Es Michael persaud, [facility] 07/02/2019 12:57:35 What Is Your Level Of Alcohol Consumption? None [email or web address] Information not available 09/22/2021 If You Are , What Was Your Level Of Alcohol Consumption Prior To ? Occasional [email or web address] Information not available 06/14/2020 Are You Blind Or Do You Have Difficulty Seeing? No [email or web address] Information n ot available 06/14/2020 What Is Your Level Of Caffeine Consumption? Occasional [email or web address] Information not available 06/23/2020 In The 14 Days Before Symptom Onset, Have You Had Close Contact With A Laboratory-confirm ed COVID-19 While That Case Was Ill? No [email or web address] Information n ot available 06/14/2020 In The 14 Days Before Symptom Onset, Have You Had Close Contact With A Person Who Is Under Investigation For COVID-19 While That Person Was Ill? No [email or web address] Information not available 06/14/2020 Have You Been To An Area Known To Be High Risk For COVID-19? No Information not available 06/14/2020 Are You Deaf Or Do You Have Serious Difficulty Hearing? No Information not available 06/14/2020 What Type Of Diet Are You Following? REGULAR [email or web address] Information n ot available 06/14/2020 Have You Ever Been Counseled For Unhealthy Alcohol Use? No [email or web address] Information not available 06/14/2020 Do You Use Your Seat Belt Or Car Seat Routinely? Yes [email or web address] Information not available 06/14/2020 Do You Have Smoke And Carbon Monoxide Detectors In Your Home? Yes Information not available 06/14/2020 Do You Feel Stressed (tense, Restless, Nervous, Or Anxious, Or Unable To Sleep At Night)? [id number] [email or web address] Information not available 06/14/2020 Do You Use Any Illicit Or Recreational Drugs? No [email or web address] Information not available 06/14/2020 Do You Use Sunscreen Routinely? Yes [email or web address] Information not available 06/14/2020 Has Tobacco Cessation Counseling Been Provided? No [email or web address] Information not available 06/14/2020 Do You Or Have You Ever Used Any Other Forms Of Tobacco Or Nicotine? No [email or web address] Information not available 06/14/2020 Sex: Unknown Functional Status Question Answer Note LastModified by Organizat ion Details LastModified Time Do you have difficulty walking or climbing stairs? No [email or web address] Information not available 09/22/2021 Are you able to walk? YESWOREST [email or web address] Information not available 06/14/2020 Are you able to care for yourself? Yes Information not available 09/22/2021 Do you have difficulty dressing or bathing? No [email or web address] Information not available 09/22/2021 What is your exercise level? Occasional [email or web address] Information not available 06/14/2020 Mental Status None recorded. Family History Relationship Description Onset Age of this Age Resolved Age Notes LastModified by Organization Details LastModified Time Unspecified Relation Family history of malignant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
--- OUTSIDE RECORDS SUMMARY | 2024-04-21 03:11 | XMS_ITS | Data Portability ---
Author Organization [place] - [facility] OFFICE Address [address] [place] [address] Care Team Providers Care Pool Coordinator Name Role Phone KYE BROWN Primary Care Provider Assessment No assessment recorded. Plan of Treatment Reminders Order Date Submit Date Provider Last Modified By Organization Details Last Modified Time Details Appointments None recorded. Lab None recorded. Referral None recorded. Procedures None recorded. Surgeries None recorded. Imaging electrocar diogram 2018 019 elainei Not available 9 17:36:00 Medication Orders None recorded. Patient TargetsNo targets recorded. Patient InstructionsNo instructions recorded. Reason for Referral None Reported. Results Created Date Observation Date Name Description Value Unit Range Abnormal Flag Note LastModifiedBy Organization Detail LastModifiedTime 10/07/1910/06/2018 landon mccabe am Result EKG 9 : NSR, NSST change s Not Available Roshan Jeronimo MD [address], [place], [address], 10/06/2018 16:58:03 10/09/1910/06/2018 landon mccabe am No observ ation record ed. [email or web address] Not Available 2018 15:36:05 10/25/19 19 10/17/2018 venou s gayatrii ng, lower extre mity No observ ation record ed. [email or web address] Not Available 2018 16:27:43 11/04/19 19 10/24/2018 (SACHA) ankle brach ial index * No observ ation record ed. [email or web address] Not Available 2018 10:06:23 11/26/19 19 10/24/2018 US, doppl er, arter ial No observ ation record ed. [email or web address] Not Available 2018 11:14:28 Result Notes None recorded. Problems Name Problem SNOMED Code Status Onset Date Resolution Date Notes Provider Name and Address Organization Details Recorded Time Asthma 568617942 Active 2018 Brady persaud, [place] - [facility] 9 01:33:54 Endometriosis (clinical) 826789703 Active 2018 Brady Menard [facility], [place] - [facility] 9 01:34:11 Swelling of lower leg 174324025 Active 2018 Brady Menard [facility], [place] - [facility] 9 01:37:39 Anxiety 24738183 Active 2018 [place] [facility] 9 17:26:10 Depressive disorder 47938472 Active 2018 [facility] Farida null, [facility] 9 17:26:20 Problem Notes None recorded. Procedures Surgical History Date Name Laterality Status Provider Name and Address Organization Details Recorded Time operation on external ear completed [facility] 10/06/2018 17:12:05 tonsillectomy completed [facility] 10/06/2018 17:12:15 Imaging Results Imaging Date Name Status LastModified by Organization Details LastModified Time 10/06/2018 electrocardiogram completed [email or web address] Informa tion not available 10/12/2018 15:36:05 10/17/2018 venous mapping, lower extremity completed [email or web address] Information not available 10/27/2018 16:27:43 10/24/2018 (SACHA) ankle brachial index* completed Information not available 11/03/2018 10:06:23 10/24/2018 US, doppler, arterial completed [email or web address] Information not available 11/25/2018 11:14:28 Procedure Notes None recorded. Medical Equipment None Reported. Allergies Allergen ID Allergen Name Allergen Category Reaction Reaction Severity Criticality Documentation Date Start Date Code Code System Note Provider Name and Address Organization Details Recorded Time 8617 amoxicill in medicatio n Not available Not available Not available 10/06/2018 723 RxNorm Brady persaud, [place] - [facility] 9 01:34:33 8618 Product containin g penicilli n and antibioti c (product) medicatio n Not available Not available Not available 10/06/2018 89174 05 SNOMED Brady Menard [facility] 9 01:34:41 8619 codeine medicatio n Not available Not available Not available 10/06/2018 2670 RxNorm Brady Menard [facility] 9 01:34:48 Medications Name Sig Start Date Stop Date Status Note LastModified by Organization Details LastModified Time venlafaxine ER 37.5 mg capsule,exte nded release 24 hr active Not Available Not Available Not Available clindamycin HCl 300 mg capsule active Not Available Not Available Not Available azithromycin 250 mg tablet 11/03 completed Not Available Not Available Not Available prochlorpera zine maleate 5 mg tablet active Not Available Not Available Not Available ondansetron HCl 8 mg tablet active Not Available Not Available Not Available metronidazol e 0.75 % (37.5 mg/5 gram) vaginal gel active Not Available Not Available Not Available Pyridium 200 mg tablet Take 1 tablet 3 times a day by oral route. active Not Available Not Available No t Available sulfamethoxa zole 800 mg-trimethop rim 160 mg tablet active Not Available Not Available Not Available lamotrigine 25 mg tablet active Not Available Not Available Not Available Bactrim DS 800 mg-160 mg tablet Take 1 tablet every 12 hours by oral route. 11/03 completed Not Available Not Available Not Available oseltamivir 75 mg capsule active Not Available Not Available Not Available buspirone 7.5 mg tablet active Not Available Not Available Not Available hydroxyzine HCl 10 mg tablet active Not Available Not Available Not Available sertraline 50 mg tablet Take 1 tablet every day by oral route. active Not Available Not Available No t Available lamotrigine 100 mg tablet active Not Available Not Available Not Available Benadryl 25 mg capsule Take 1 capsule by oral route as directed . active Not Available Not Available No t Available erythromycin with ethanol 2 % topical solution active Not Available Not Available Not Available + DHA 28 mg iron-975 mcg-200 mg oral pack Take 1 pack every day by oral route before meals. active Not Available Not Available No t Available Prenate Chewable 1 tablet once a day active Not Available Not Available No t Available Vitals Date Recorded Body height Body mass index (BMI) Body weight Heart rate Respiratory rate Oxygen saturation Oxygen saturation in Arterial blood by Pulse oximetry Systolic blood pressure Diastolic blood pressure Provider Name and Address Organization Details Last Updated DateTime 9 154.94 cm 26.8 kg/m2 15884.1 2 g 91 /min 18 /min 97 % 97 % 110 mm[Hg] 66 mm[Hg] Temi Carvajal [facility] 9 17:09:25 Date Recorded Body height Body mass index (BMI) Body weight Respiratory rate Oxygen saturation Oxygen saturation in Arterial blood by Pulse oximetry Heart rate Systolic blood pressure Diastolic blood pressure Provider Name and Address Organization Details Last Updated DateTime 9 154.94 cm 25.3 kg/m2 95499.3 8 g 18 /min 97 % 97 % 96 /min 106 mm[Hg] 66 mm[Hg] Elva Rice [facility] 9 16:45:37 Social History Question Answer Notes LastModified by Organizat ion Details LastModified Time Tobacco Smoking Status Current Every Day Smoker Not Available [facility] 01/12/2020 03:30:41 Do You Have An Advance Directive? No [id number] Information not available 01/12/2020 What Is Your Level Of Alcohol Consumption? None [id number] Information not available 01/12/2020 What Is Your Level Of Caffeine Consumption? Moderate [id number] Information not available 01/12/2020 How Much Tobacco Do You Chew? None [id number] Information not available 01/12/2020 What Type Of Diet Are You Following? REGULAR [id number] Information not available 01/12/2020 Which Illicit Or Recreational Drugs Have You Used? No MJ [id number] Information not available 01/12/2020 Live Alone Or With Others? With Others Information not available 10/06/2018 Marital Status Single [email or web address] Informatio n not available 10/06/2018 How Many Children Do You Have? 1 [id number] Information not available 01/12/2020 At What Age Did You Start Smoking Tobacco? 15 [id number] Information not available 01/12/2020 How Much Tobacco Do You Smoke? 0.5 PPD [id number] Information not available 01/12/2020 General Stress Level Low Information not available 10/06/2018 How Many Years Have You Smoked Tobacco? 10 [id number] Information not available 01/12/2020 Sex: Unknown Functional Status Question Answer Note LastModified by Organization D etails LastModified Time What is your exercise level? Moderate [id number] Information not available 01/12/2020 Mental Status None recorded. Family History Relationship Description Onset Age of this Age Resolved Age Notes LastModified by Organization Details LastModified Time Unspecified Relation Adopted princess Not available 019 17:27:52 Medical History Condition Response Depression Y Gynecological HistoryNo gynecological history recorded. Obstetrics History GPAL:G 0 P 0 0 0 0 Past Encounters Encounter ID Performer Location Encounter Start Date Encounter Closed Date Diagnosis/Indication Diagnosis SNOMED-CT Code Diagnosis ICD10 Code Diagnosis Note [id number] Suzanna Mustafa e Office [address] [place] [address] 10/06/2018 16:32:03 10/06/2018 17:35:18 Swelling of lower leg 060861995 R22.40 ECHO, Venous US, SACHA [id number] [facility] Mustafa [facility] Office [address] [place] [address] 11/03/2018 16:26:57 11/03/2018 17:06:13 Edema of lower extremity 203448357 R60.0 Venous reflux negativeLi erika physiologi c due to pregnancyL ow salt diet encouraged Palpitations 81811307 R0 0.2 Check 2D echoCheck 24 Holter monitorWil l follow up in 1 month 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 She would like to quit without meds. Health Concerns Section Related Observation LastModified by Organization Detai ls LastModified Time None Recorded Concern Status LastModified by Organization Details LastModified Time None Recorded Advance Directives Directive N: Payers Encounter Date Sequence Insurance Name Policy Number Policy Daniels Covered Member ID Daniels Member ID Guarantor Name 10/06/2018 [facility]20 (O) Alexandrea Craig [id number] Alexandrea Craig 11/03/2018 [facility]11[facility] (O) Alexandrea Craig [id number] Alexandrea Craig Notes Date Note Type Note Provider Name and Address Organization Details Recorded Time 10/06/2018 text/html 10/06/18CC: LE edemaHPI: 23 year old WF came for cardiac consultation for the swelling of the legs she is 12 weeks ,she has a history of anxiety and depression No cardiac problems , no previous cardiac evaluation. Pt states that she does pain in her legs. Since about 5 monthsNo problems with walking , they do hurt sometimes.LE edema everyday all the time {{No known history of coronary artery disease.* History of coronary artery disease reported.}} {{No history of previous myocardial infarction.* Histo ry of previous myocardial infarction reported.}} {{No history of heart failure.* History of heart failure reported.}} {{No known valvular heart disease.* History of valvular heart disease reported.}} {{No known arrhythmia.* Histo ry of arrhythmia reported.}} {{Patient reports feeling well overall.* Patient reports not feeling well sometimes.}} {{Patient is active, but is not exercising regularly.* Patien t is active, exercising regularly. Patient is not very active, and is not exercising.}} {{No chest pain.* Chest pain reported. Exertion al chest pain reported. Non-exer tional chest pain reported. Chest pain reported which is only sometimes associated with activity.}} {{No arm pain.* Arm pain reported.}} {{No neck pain.* Neck pain reported.}} {{No nausea and vomiting.* Nausea and vomiting reported.}} {{No diaphoresis.* Diap horesis reported.}} {{No shortness of breath at rest.* Shortness of breath at rest reported.}} {{No dyspnea on exertion. Dyspnea on exertion reported.*}} {{No fatigue.* Fatigue reported.}}{{No orthopnea.* Orthop [place] reported.}} {{No PND.* PND reported.}} {{No leg swelling. Leg swelling reported.*}} {{No palpitation.* Palp itation reported.}} {{No dizziness.* Dizzin ess reported.}} {{No syncope .* Syncope reported.}} {{No pre-syncope.* Pre- syncope reported.}} {{No claudication.* Cla udication reported.}} {{No major bleeding events.* Major bleeding event reported.}} {{No side effects from medications.* Side effects from medications reported.}} {{Complete ROS negative except as stated in the HPI. Complete ROS negative except as stated in the HPI and ROS.*}} Results from this visit, or from the past:CMP 09/08/2018 NA 141 K 3.8 CH 101 CO2 29 GL 91 BUN 15 CR 0.7 CA 9.6 AST 17 ALT 10 ALK PH 66CBC 09/08/2018 WBC 6.6 RBC 4.96 HGB 14.6 HCT 44.7 PLT 274 EKG 10/06/18 : NSR, NSST changes Suzanna Ma [facility] 10/22/2018 13:30:55 11/03/2018 text/html CC: LE edema HPI: 23 year old WF came for cardiac consultation for the swelling of the legs she is 12 weeks ,she has a history of anxiety and depression no previous cardiac evaluation. She reports palpitations on daily basis. No dizziness or loss of consciousness. Pt states that she has pain in her legs. Since about 5 monthsNo problems with walking , they do hurt sometimes.LE edema everyday all the time She is smokes 3 cigarettes a day {{No known history of coronary artery disease.* History of coronary artery disease reported.}} {{No history of previous myocardial infarction.* Histo ry of previous myocardial infarction reported.}} {{No history of heart failure.* History of heart failure reported.}} {{No known valvular heart disease.* History of valvular heart disease reported.}} {{No known arrhythmia.* Histo ry of arrhythmia reported.}} {{Patient reports feeling well overall.* Patient reports not feeling well sometimes.}} {{Patient is active, but is not exercising regularly.* Patien t is active, exercising regularly. Patient is not very active, and is not exercising.}} {{No chest pain.* Chest pain reported. Exertion al chest pain reported. Non-exer tional chest pain reported. Chest pain reported which is only sometimes associated with activity.}} {{No arm pain.* Arm pain reported.}} {{No neck pain.* Neck pain reported.}} {{No nausea and vomiting.* Nausea and vomiting reported.}} {{No diaphoresis.* Diap horesis reported.}} {{No shortness of breath at rest.* Shortness of breath at rest reported.}} {{No dyspnea on exertion. Dyspnea on exertion reported.*}} {{No fatigue.* Fatigue reported.}}{{No orthopnea.* Orthop [place] reported.}} {{No PND.* PND reported.}} {{No leg swelling. Leg swelling reported.*}} {{No palpitation.* Palp itation reported.}} {{No dizziness.* Dizzin ess reported.}} {{No syncope .* Syncope reported.}} {{No pre-syncope.* Pre- syncope reported.}} {{No claudication.* Cla udication reported.}} {{No major bleeding events.* Major bleeding event reported.}} {{No side effects from medications.* Side effects from medications reported.}} {{Complete ROS negative except as stated in the HPI. Complete ROS negative except as stated in the HPI and ROS.*}} Results from this visit, or from the past:CMP 09/08/2018 NA 141 K 3.8 CH 101 CO2 29 GL 91 BUN 15 CR 0.7 CA 9.6 AST 17 ALT 10 ALK PH 66CBC 09/08/2018 WBC 6.6 RBC 4.96 HGB 14.6 HCT 44.7 PLT 274 EKG 10/06/18 : NSR, NSST changesABI 10/24/2018 Normal ankle brachial indexVenous reflux 10/17/2018 No significant reflux disease noted. Patient was seen by Russ Gil and plan discussed with Dr Farida Gil [facility] [place] - [facility] 11/03/2018 17:06:10 OBGyn Episode No OBEpisode recorded.
[2024-04-21] MEDS: SODIUM CHLORIDE 0.9% IV 1,000 ML 999 ML IV CONT (03:30)
[2024-04-21 03:33] LABS: BEDSIDEPREGUCG Negative (Negative)
[2024-04-21 03:45] LABS: Basophils Absolute Auto 0.1 K/mm3 (0.0-0.1); Basophils Percent Auto 0.7 % (0.2-1.2); Eosinophils Absolute Auto 0.1 K/mm3 (0-0.3); Eosinophils Percent Auto 0.7 % (0-4.4); Hematocrit 40.2 % (37.0-47.0); Hemoglobin 13.3 g/dL (12.0-15.0); Immature Granulocyte Absolute 0.03 K/mm3 (0.00-0.031); Immature Granulocyte Percent A 0.3 % (0-0.5); Lymphocytes Absolute Auto 2.69 K/mm3 (0.9-3.2); Lymphocytes Percent Auto 23.8 % (18.3-44.2); Mean Corpuscular HGB Conc 33.1 g/dl (32-36); Mean Corpuscular Hemoglobin 29.5 pg (26-34); Mean Corpuscular Volume 89.1 fl (80-100); Mean Platelet Volume 9.6 fl (7.4-10.4); Monocytes Absolute Auto 0.8 K/mm3 (0.1-0.6); Monocytes Percent Auto 7.3 % (2.6-8.5); Neutrophils Absolute Auto 7.6 K/mm3 (1.3-6.7); Neutrophils Percent Auto 67.2 % (45.5-73.1); Platelet Count Result 323 k/mm3 (150-375); Red Blood Count 4.51 M/mm3 (4.2-5.4); Red Cell Distribution Width 12.7 % (11.5-14.5); White Blood Count 11.3 K/mm3 (4.5-10.0)
[2024-04-21 03:58] LABS: Alanine Aminotransferase 33 U/L (6-35); Albumin Level 4.2 g/dL (3.5-5.1); Alkaline Phosphatase 58 U/L (38-126); Anion Gap 5 mmol/L (4-12); Aspartate Amino Transferase 27 U/L (14-36); Bilirubin,Total 0.5 mg/dL (0.2-1.3); Blood Urea Nitrogen 19 mg/dL (7-17); Calcium 10.3 mg/dL (8.4-10.2); Carbon Dioxide 30 mmol/L (22-30); Chloride 99 mmol/L (98-107); Estimated Glomerular Filt Rate > 60; Ethanol < 10 mg/dL (<10); Glucose 107 mg/dL (65-110); Potassium 4.2 mmol/L (3.4-5.0); Sodium 134 mmol/L (137-145)
[2024-04-21 04:03] LABS: Barbiturate Screen Urine Negative (Negative); Benzodiazepines Screen Urine Negative (Negative); Cannabinoid Screen Urine Negative (Negative); Cocaine Screen Urine Negative (Negative); Methadone Screen Urine Negative (Negative); Opiate Screen Urine Negative (Negative); Phencyclidine Screen Urine Negative (Negative)
[2024-04-21 04:07] LABS: Add Urine Microscopic? YES; Appearance Urine Cloudy (Clear); Bacteria Urine Rare /hpf; Bilirubin Urine Negative (Negative); Blood Urine Negative (Negative); Color Urine Yellow (Yellow); Glucose Urine UA Negative (Negative); Ketones Urine Negative (Negative); Leukocyte Esterase Ur Trace LEU/UL (Negative); Need Manual Microscopic Reviewed; Nitrate Urine Negative (Negative); Protein Urine 1+ mg/dL (Negative); RBC Urine 0-2 /hpf (0-2); Specific Grav Ur 1.015 (1.001-1.035); Squamous Epithelial Cell Urine Moderate /hpf (Few); Urobilinogen Urine 0.2 mg/dL (<2.0)
[2024-04-21] MEDS: ACETAMINOPHEN 500 MG TABLET 1000 MG PO (04:51)
[2024-04-21 04:54] VITALS: BP 128/72; PULSE 92; RESP 17; O2SAT 100
[2024-04-21 05:06] LABS: Amphetamine Screen Urine Positive (Negative)
[2024-04-21 06:12] VITALS: BP 147/90; PULSE 91; RESP 13; O2SAT 99
[2024-04-21] MEDS: KETOROLAC 30 MG/ML VIAL (*BKC) 15 MG IM (06:59)
[2024-04-21 07:23] VITALS: BP 147/90; PULSE 91; RESP 13; O2SAT 99
== END 2024-04-21 07:24 | disposition home or self-care (01) ==
PROVIDERS: Registered Nurse; Emergency Provider Student in an Organized Health Care Education/Training Program
DX: F15.10 Other stimulant abuse, uncomplicated (principal); F17.290 Nicotine dependence, other tobacco product, uncomplicated; F41.9 Anxiety disorder, unspecified; F32.A Depression, unspecified; Y04.0XXA Assault by unarmed brawl or fight, initial encounter
CPT/HCPCS: 36415; 70450; 80053; 80307; 81001; 81025; 82077; 85025; 96360; 96372; 99284; A9270; J1885; J7030

== ENCOUNTER 2024-05-29 09:39 | Outpatient (CLI) | payer OTHER, SELFPAY ==
--- NOTE | 2024-05-29 | ECG_ITS ---
Test Date: 2024-05-29 10:15:43 Measurements Intervals [place] Rate: 79 P: 63 WY: 133 QRS: 78 QRSD: 85 T: 64 QT: 364 QTc: 419 Interpretive Statements SINUS RHYTHM No previous ECG available for comparison Electronically Signed On 05-29-2024 18:18:57 CDT by Abdirahman Reyes M.D.
--- NOTE | ~2024-05-29 | XR_ITS ---
Clinical Indication: Chest pain PA and lateral views of the chest: Comparison: 03/03/2017 Findings: The lungs are clear, without evidence of focal consolidation or pleural effusion. Cardiome diastinal silhouette is within normal limits. Bones and soft tissues are unremarkable. Impression: Normal chest. Reviewed, dictated and finalized at location . Impression: Normal chest.
[2024-05-29 10:23] LABS: Basophils Absolute Auto 0.1 K/mm3 (0.0-0.1); Basophils Percent Auto 1.2 % (0.2-1.2); Eosinophils Absolute Auto 0.3 K/mm3 (0-0.3); Hematocrit 39.4 % (37.0-47.0); Hemoglobin 12.8 g/dL (12.0-15.0); Immature Granulocyte Absolute 0.02 K/mm3 (0.00-0.031); Immature Granulocyte Percent A 0.3 % (0-0.5); Lymphocytes Percent Auto 20.1 % (18.3-44.2); Mean Corpuscular HGB Conc 32.5 g/dl (32-36); Mean Corpuscular Hemoglobin 29.3 pg (26-34); Mean Corpuscular Volume 90.2 fl (80-100); Mean Platelet Volume 10.7 fl (7.4-10.4); Monocytes Absolute Auto 0.4 K/mm3 (0.1-0.6); Monocytes Percent Auto 5.9 % (2.6-8.5); Neutrophils Absolute Auto 5.1 K/mm3 (1.3-6.7); Neutrophils Percent Auto 68.5 % (45.5-73.1); Platelet Count Result 247 k/mm3 (150-375); Red Blood Count 4.37 M/mm3 (4.2-5.4); Red Cell Distribution Width 12.7 % (11.5-14.5); White Blood Count 7.5 K/mm3 (4.5-10.0)
[2024-05-29 10:42] LABS: Iron 58 ug/dL (37-170)
[2024-05-29 10:46] LABS: Alanine Aminotransferase 97 U/L (6-35); Alkaline Phosphatase 74 U/L (38-126); Anion Gap 6 mmol/L (4-12); Aspartate Amino Transferase 45 U/L (14-36); Bilirubin,Total 0.1 mg/dL (0.2-1.3); Blood Urea Nitrogen 12 mg/dL (7-17); Calcium 9.2 mg/dL (8.4-10.2); Carbon Dioxide 31 mmol/L (22-30); Chloride 102 mmol/L (98-107); Estimated Glomerular Filt Rate > 60; Glucose 121 mg/dL (65-110); Potassium 4.6 mmol/L (3.4-5.0); Sodium 139 mmol/L (137-145)
--- OUTSIDE RECORDS SUMMARY | 2024-05-29 10:46 | XMS_ITS | Clinical Summary ---
Author Organization [facility] Address [address] [place] [address] Care Team Providers Care White Metal Corrosion Proofer Name Role Phone Moses Goode MD Primary Care Provider [phone] Source Comments [facility],non-owned Affiliates and Associated Physician Practices is amultiple site organization consisting of ambulatory clinics and hospital sitesin [place], [place], [place] and [place]. This disclosure is being madepursuant to the Care Everywhere program and may not contain all information available regarding this patient. Last updated 17.[facility] Allergies Active Allergy Reactions Criticality Noted Date [...] as needed for Itching. Indications: Hayfever Active Ddxeytxu-Iwt-Oa-FA ( VITAMIN WITH IRON) tablet Take 1 [...] by mouth 4 times daily Active Biotin 17523 MCG TABS Active HYDROcodone-acetam inophen (NORCO) 5-325 MG tablet Take 1 tablet by mouth every 6 hours as needed for Pain Active docusate sodium (COLACE) 100 MG capsule Take 100 mg by mouth once daily Active fluticasone propionate (FLONASE) 50 MCG/ACT nasal spray [place] 2 sprays into each nostril once daily [...] Comments Blood Pressure 146/91 02/22/2020 9:04 AM MEDICAL LAB DIRECTOR Pulse 110 02/22/2020 9:04 AM MEDICAL LAB DIRECTOR Temperature 36.2 C (97.1 F) 02/22/2020 9:04 AM MEDICAL LAB DIRECTOR Respiratory Rate 16 02/22/2020 9:04 AM MEDICAL LAB DIRECTOR Oxygen Saturation 98% 02/22/2020 9:04 AM MEDICAL LAB DIRECTOR Inhaled Oxygen Concentration - - Weight 72.6 kg (160 lb) 02/22/2020 9:04 AM MEDICAL LAB DIRECTOR Height 154.9 cm (5' 1 ) 02/22/2020 9:04 AM MEDICAL LAB DIRECTOR Body Mass Index 30.23 02/22/2020 9:04 AM MEDICAL LAB DIRECTOR Plan of Treatment Health Maintenance Due Date [...] to complete this topic MENINGOCOCCAL (Group B) VACC INE SHARED DECISION-MAKING Aged Out No longer eligibl e based on patient's age to complete this topic MENINGOCOCCAL GROUPS A/C/Y/W VACCINE Aged Out No longer eligible b ased on patient's age to complete this topic Advance Directives Documents on File Type Date Recorded 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
--- OUTSIDE RECORDS SUMMARY | 2024-05-29 10:46 | XMS_ITS | Clinical Summary ---
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 no need for antiepileptics per neuro History of alcoholism 07/05/2021 Overview (01/24/2023): sober since 11/2020 per pt, but [facility] sober since 11/2020 per pt, but [facility] Mental disorder 07/05/2021 Overview (01/24/2023): bipolar, substance abuse, PTSD, anxiety, depression, personality d/o, pp depression. bipolar, substance abuse, PTSD, anxiety, depression, personality d/o, pp depression. Attention deficit disorder (ADD) without hyperac tivity 05/31/2021 Allergies 05/31/2021 Annual physical exam 04/06/2021 Assessment & Plan (03/19/2022 3:01 PM PENOLOGY PROFESSOR): Follow-up 1 year for annual physical. Continue eating healthy. Limit processed foods like white starches, fast food, sweets and soda. Increase your vegetable intake and limit red meat. Continue exercising and wearing your seatbelt at all times. No texting and driving. Continue to manage your stress in a healthy manner. Assessment & Plan (04/06/2021 10:57 AM PENOLOGY PROFESSOR): Follow-up 1 year for annual physical. Continue eating healthy. Limit processed foods like white starches, fast food, sweets and soda. Increase your vegetable intake and limit red meat. Continue exercising and wearing your seatbelt at all times. No texting and driving. Continue to manage your stress in a healthy manner. Placenta circumvallata 03/11/2019 Overview (01/24/2023): Circumvallate placenta, third trimester;Recorded Elsewhere: No Location: [facility] Source: EHR Chronic: N Practice ID: [id number] Billable Time: 02:30:00 PM Nausea 11/11/2018 Overview (01/24/2023): Nausea;Recorded Elsewhere: No Location: [facility] Source: EHR Chronic: N Practice ID: [id number] Billable Time: 10:00:00 AM Uterine size-date discrepancy 10/14/2018 Overview (01/24/2023): Uterine size-date discrepancy, first trimester;Recorded Elsewhere: No Location: [facility] Source: EHR Chronic: N Practice ID: [id number] Billable Time: 11:30:00 AM Syphilis contact 10/14/2018 Overview (01/24/2023): Encntr screen for infections w sexl mode of transmiss;Recorded Elsewhere: No Location: [facility] Source: EHR Chronic: N Practice ID: [id number] Billable Time: 11:00:00 AM Anxiety 10/06/2018 Endometriosis 10/06/2018 Swelling of lower leg 10/06/2018 Depressive disorder 10/06/2018 Urinary tract infectious disease 08/01/2018 Overview (01/24/2023): Urinary tract infection, site not specified;Recorded Elsewhere: No Location: [facility] Source: EHR Chronic: N Practice ID: [id number] Billable Time: 02:30:00 PM Frequent urination 03/12/2018 Overview (01/24/2023): Urgency of urination;Recorded Elsewhere: No Location: [facility] Source: EHR Chronic: N Practice ID: [id number] Billable Time: 02:45:00 PM Emotional state symptom 01/14/2018 Overview (01/24/2023): Anxiety depression;Recorded Elsewhere: No Location: [facility] Source: EHR Chronic: N Practice ID: [id number] Billable Time: 01:45:00 PM Abnormal lochia 01/07/2018 Overview (01/24/2023): Encounter for routine follow-up;Recorded Elsewhere: No Location: [facility] Source: EHR Chronic: N Practice ID: [id number] Billable Time: 10:30:00 AM Term delivered 12/02/2017 Overview (01/24/2023): Encounter for full-term uncomplicated delivery;Practice ID: 0001 False labor before 37 completed weeks of gestati on 11/17/2017 Overview (01/24/2023): False labor before 37 completed weeks of gest, third tri;Practice ID: 0001 Asthma 10/30/2017 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 10/14/2017 Overview (01/24/2023): Matern care for oth or susp poor fetl grth, third tri, unsp;Recorded Elsewhere: No Location: [facility] Source: EHR Chronic: N Practice ID: [id number] Billable Time: 10:30:00 AM 07/17/2017 Overview (01/24/2023): Encntr for suprvsn of normal first preg, second trimester;Recorded Elsewhere: No Location: [facility] Source: EHR Chronic: N Practice ID: [id number] Billable Time: 04:15:00 PM Encntr for suprvsn of normal first preg, third trimester;Recorded Elsewhere: No Location: [facility] Source: EHR Chronic: N Practice ID: [id number] Billable Time: 10:30:00 AM Oth related conditions, third trimester;Practice ID: 0001 Secondary amenorrhea 05/02/2017 Overview (01/24/2023): Secondary amenorrhea;Recorded Elsewhere: No Location: [facility] Source: EHR Chronic: N Practice ID: [id number] Billable Time: 11:00:00 AM Amenorrhea, unspecified;Recorded Elsewhere: No Location: [facility] Source: EHR Chronic: N Practice ID: [id number] Billable Time: 02:30:00 PM Chronic pelvic pain in female 07/13/2015 Dysmenorrhea 07/13/2015 Dysuria 07/13/2015 Pain in joint involving right pelvic region and thigh 07/13/2015 Oligomenorrhea 01/10/2015 Overview (01/24/2023): Excessive and frequent menstruation with irregular cycle;Recorded Elsewhere: No Location: [facility] Source: EHR Chronic: N Practice ID: [id number] Billable Time: 05:15:00 PM Right lower quadrant pain 10/01/2014 Overview (01/24/2023): RLQ pain;Recorded Elsewhere: No Location: [facility] Source: EHR Chronic: N Practice ID: [id number] Billable Time: 09:15:00 AM Female genital symptoms 10/01/2014 Overview (01/24/2023): Unspecified symptom associated with female genital organs;Recorded Elsewhere: No Location: [facility] Source: EHR Chronic: N Practice ID: [id number] Billable Time: 09:15:00 AM Increased frequency of urination 09/15/2014 Overview (01/24/2023): Urinary frequency;Practice ID: 0001 Dysuria 09/15/2014 Overview (01/24/2023): Dysuria;Recorded Elsewhere: No Location: [facility] Source: EHR Chronic: N Practice ID: [id number] Billable Time: 11:30:00 AM Endometriosis of pelvic peritoneum 05/04/2014 Overview (01/24/2023): Endometriosis of peritoneum of pelvis;Recorded Elsewhere: No Location: [facility] Source: EHR Chronic: N Practice ID: [id number] Billable Time: 03:15:00 PM Dysmenorrhea 04/07/2014 Overview (01/24/2023): Dysmenorrhea;Recorded Elsewhere: No Location: [facility] Source: EHR Chronic: N Practice ID: [id number] Billable Time: 09:15:00 AM Irregular intermenstrual bleeding 02/21/2014 Overview (01/24/2023): Metrorrhagia;Recorded Elsewhere: No Location: [facility] Source: EHR Chronic: N Practice ID: [id number] Billable Time: 03:30:00 PM Post-operative hemorrhage 09/04/2011 Overview (03/09/2021): status post tonsillectomy Encounters Date Type Department Care Team Description 05/22/2024 8:50 PM CDT E-Visit [facility] Medical [facility] Virtual Care [address] [place] [phone] Kaylen Mora NP E-Visit for Cough 05/22/2024 Patient Self-Triage [facility] Physicians [address] [place] [address] Mychart, Generic Provider 05/21/2024 [facility] Initial Eligibility [facility] [address] [place], [place] [phone] Janina Pollack 05/15/2024 9:50 PM PENOLOGY PROFESSOR E-Visit [facility] Care [address] [place] [phone] Va White, FIELD REVIEWER Virtual Care Visit 05/15/2024 Patient Self-Triage [facility] [address] [place] [phone] Mychart, Generic Provider 05/15/2024 Patient Self-Triage [facility]/ Physicians [address] [place] [phone] Mychart, Generic Provider 03/11/2024 12:05 PM PENOLOGY PROFESSOR E-Visit [facility] Care [address] [place] [phone] Kaylen Mora, DASH Your Medications 03/11/2024 Patient Self-Triage [facility] [address] [place] [phone] Mychart, Generic Provider 03/08/2024 10:55 AM PENOLOGY PROFESSOR E-Visit [facility] Care [address] [place] [phone] Lara Smith MD Your Medications 03/08/2024 Patient Self-Triage [facility] [address] [place] [phone] Mychart, Generic Provider from Last 3 Months Immunizations Immunization Administration Dates Next Due DTaP, Unspecified 10/31/2002, [...] Date Smoking Tobacco: Every Day Cigarettes 0.3 8.2 Started: 2016 Smokeless Tobacco: Never Tobacco Cessation:Ready [...] on file Legal Sex Female 9:07 PM PENOLOGY PROFESSOR Gender Identity Female 03/09/2021 12:43 PM PENOLOGY PROFESSOR Sexual Orientation Straight 03/09/2021 12 :43 PM PENOLOGY PROFESSOR Obstetrics History Last Filed Vital Signs Vital Sign Reading Time Taken Comments Blood Pressure 112/64 04/25/2021 1:59 PM PENOLOGY PROFESSOR Pulse 78 04/25/2021 1:59 PM PENOLOGY PROFESSOR Temperature 36.6 C (97.8 F) 04/25/2021 1:59 PM PENOLOGY PROFESSOR Respiratory Rate 16 04/25/2021 1:59 PM PENOLOGY PROFESSOR Oxygen Saturation 99% 04/25/2021 1:59 PM PENOLOGY PROFESSOR Inhaled Oxygen Concentration - - Weight 63.5 kg (140 lb) 01/24/2023 4:06 PM PENOLOGY PROFESSOR Height 154.9 cm (5' 1 ) 01/24/2023 4:06 PM PENOLOGY PROFESSOR Body Mass Index 26.45 01/24/2023 4:06 PM PENOLOGY PROFESSOR Plan of Treatment Health Maintenance Due Date Last Done Comments Hepatitis C Screening 1997 Pneumococcal vaccine <65 (1 of 2 - PCV) 2016 Depression Screening 03/19/2023 03/19/2022, 03/16/19 22 Regular Well Visit/Exam 18-64 03/19/2023 03/19/2022, 04/06/2021 Covid-19 Vaccine (4 - 2023-2 5 season) 2023 09/14/2021, 09/22/2020, 09/01/2020 Influenza Vaccine (#1) 2023 , 12/14/2019, 12/14/2019, Additional history exists Cervical Cancer Screening 04/25/2024 04/25/2021, DTaP/Tdap/Td Vaccine (9 - Td or Tdap) 10/29/2032 10/29/2022, 01/25/2022, 10/05/2011, Additional history exists Hepatitis B Screening Completed 02/23/1998 , 1997, 1997 Varicella Vaccines Discontinued 11/17/1998 HPV Vaccines Completed 10/05/2011, 11/08/2008 Procedures Procedure Name Priority Date/Time Associated Diagnosis Comments PAP WITH REFLEX TO HIGH RISK HPV Routine 04/25/2021 2:20 PM PENOLOGY PROFESSOR Encounter for well woman exam with routine gynecological exam from Last 3 Months or Most Recently Relevant to Health Maintenance Results * (ABNORMAL) Pap with reflex to High Risk HPV (04/25/2021 2:20 PM PENOLOGY PROFESSOR) Clinical indication Comment(A) [facility] - 01 Comment: [...] Comment:[email or web address] Performed by Comment [facility] - 01 Comment:Cameron Browning otechnologist ([facility]) Electronically signed by Comment [facility] - 01 [...] sting results. Thin prep 04/25/2021 2:20 PM PENOLOGY PROFESSOR 04/26/2021 Narrative [facility] - 05/02/2021 7:09 AM PENOLOGY PROFESSOR Performed at: 01 - [email or web address] [id number] Hair Baler: Irma Garza MD, Phone: [phone] Specimen Comment: No. of containers..01 ThinPrep Vial Sandi Rodrigues NP LAB CYTOLOGY ORDERABLES Final Result [facility] - 01 from Last 3 Months or Most Recently Relevant to Health Maintenance Insurance [id number] [place] [address] [facility] Care Teams Mincemeat Maker Relationship Specialty Start Date End Date Moses Goode MD 03/09/21
--- OUTSIDE RECORDS SUMMARY | 2024-05-29 10:46 | XMS_ITS | Encounter Summary ---
Author Organization [facility] Address [address] [facility] [place] [address] Care Team Providers Care Saloonkeeper Name Role Phone Moses Goode MD Primary Care Provider [phone] Reason for Visit * Reason Onset Date Comments MEDICATION REFILL 10/23/2022 Encounter Details Date Type Department Care Team (Late st Contact Info) Description 10/23/2022 Refill [facility] - Cardiothoracic Surgery [address] [place] [phone] Jacquie Schwartz M, MANAGER OF ALLIED HEALTH SERVICES-ELECTROPHYSIOLOGIST [address] [place] [phone] MEDICATION REFILL Social History Tobacco Use Types [...] on filedocumented in this encounter Care Teams Saloonkeeper Relationship Specialty Start Date End Date Moses Goode MD [address] [place] [phone] PCP - General 04/08/18 documented as of this encounter
--- OUTSIDE RECORDS SUMMARY | 2024-05-29 10:46 | XMS_ITS | Referral Summary ---
Author Organization [facility] [address] Address [address] [place] [address] Care Team Providers Care Director Of Veterans Affairs Name Role Phone Moses Goode MD Unavailable Encounters Date Type Department Care Team Description 05/22/2024 8:50 PM CDT E-Visit [facility] Medical [facility] Virtual Care [address] [place] [phone] Kaylen Mora NP E-Visit for Cough 05/22/2024 Patient Self-Triage [facility] Physicians [address] [place] [phone] Mychart, Generic Provider 05/21/2024 [facility] Initial Eligibility [facility] Warm Hand [facility] [address] [place], [place] [phone] Janina Pollack 05/15/2024 9:50 PM ESTATE PLANNER E-Visit [facility] Medical [facility] Virtual Care [address] [place] [phone] Va White, ASSEMBLER BODY Virtual Care Visit 05/15/2024 Patient Self-Triage [facility] [address] [place] [phone] Mychart, Generic Provider 05/15/2024 Patient Self-Triage [facility] [address] [place] [phone] Mychart, Generic Provider 03/11/2024 12:05 PM ESTATE PLANNER E-Visit [facility] Medical [facility] Virtual Care [address] [place] [phone] Kaylen Mora NP Your Medications 03/11/2024 Patient Self-Triage [facility] Phys[facility] [address] [place] [phone] Mychart, Generic Provider 03/08/2024 10:55 AM ESTATE PLANNER E-Visit [facility] Medical Group Virtual Care [address] [place] [phone] Lara Smith MD Your Medications 03/08/2024 Patient Self-Triage [facility] [address] [place] [phone] Mychart, Generic Provider from Last 3 Months [...] 11/2020 per pt, but admitted to a [facility] 08/26 sober since 11/2020 per pt, but admitted to a [facility] 08/26 Mental disorder 07/05/2021 Overview (01/24/2023): bipolar, substance abuse, PTSD, anxiety, depression, personality d/o, pp depression. bipolar, substance abuse, PTSD, anxiety, depression, personality d/o, pp depression. Attention deficit disorder (ADD) without hyperac tivity 05/31/2021 Allergies 05/31/2021 Annual physical exam 04/06/2021 Assessment & Plan (03/19/2022 3:01 PM ESTATE PLANNER): Follow-up 1 year for annual physical. Continue eating healthy. Limit processed foods like white starches, fast food, sweets and soda. Increase your vegetable intake and limit red meat. Continue exercising and wearing your seatbelt at all times. No texting and driving. Continue to manage your stress in a healthy manner. Assessment & Plan (04/06/2021 10:57 AM ESTATE PLANNER): Follow-up 1 year for annual physical. Continue eating healthy. Limit processed foods like white starches, fast food, sweets and soda. Increase your vegetable intake and limit red meat. Continue exercising and wearing your seatbelt at all times. No texting and driving. Continue to manage your stress in a healthy manner. Placenta circumvallata 03/11/2019 Overview (01/24/2023): Circumvallate placenta, third trimester;Recorded Elsewhere: No Location: [facility] Source: EHR Chronic: N Practice ID: [id number] Billable Time: 02:30:00 PM Nausea 11/11/2018 Overview (01/24/2023): Nausea;Recorded Elsewhere: No Location: [facility] Source: EHR Chronic: N Practice ID: [id number] Billable Time: 10:00:00 AM Uterine size-date discrepancy 10/14/2018 Overview (01/24/2023): Uterine size-date discrepancy, first trimester;Recorded Elsewhere: No Location: [facility] Source: EHR Chronic: N Practice ID: [id number] Billable Time: 11:30:00 AM Syphilis contact 10/14/2018 Overview (01/24/2023): Encntr screen for infections w sexl mode of transmiss;Recorded Elsewhere: No Location: [facility] Source: EHR Chronic: N Practice ID: [id number] Billable Time: 11:00:00 AM Anxiety 10/06/2018 Endometriosis 10/06/2018 Swelling of lower leg 10/06/2018 Depressive disorder 10/06/2018 Urinary tract infectious disease 08/01/2018 Overview (01/24/2023): Urinary tract infection, site not specified;Recorded Elsewhere: No Location: [facility] Source: EHR Chronic: N Practice ID: [id number] Billable Time: 02:30:00 PM Frequent urination 03/12/2018 Overview (01/24/2023): Urgency of urination;Recorded Elsewhere: No Location: [facility] Source: EHR Chronic: N Practice ID: [id number] Billable Time: 02:45:00 PM Emotional state symptom 01/14/2018 Overview (01/24/2023): Anxiety depression;Recorded Elsewhere: No Location: [facility] Source: EHR Chronic: N Practice ID: [id number] Billable Time: 01:45:00 PM Abnormal lochia 01/07/2018 Overview (01/24/2023): Encounter for routine follow-up;Recorded Elsewhere: No Location: [facility] Source: EHR Chronic: N Practice ID: [id number] [...] and conditions compl preg/chldbrth;Recorded Elsewhere: No Location: [facility] Source: EHR Chronic: N Practice ID: [id number] Billable Time: 09:30:00 AM 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 10/14/2017 Overview (01/24/2023): Matern care for oth or susp poor fetl grth, third tri, unsp;Recorded Elsewhere: No Location: [facility] Source: EHR Chronic: N Practice ID: [id number] Billable Time: 10:30:00 AM 07/17/2017 Overview (01/24/2023): Encntr for suprvsn of normal first preg, second trimester;Recorded Elsewhere: No Location: [facility] Source: EHR Chronic: N Practice ID: [id number] Billable Time: 04:15:00 PM Encntr for suprvsn of normal first preg, third trimester;Recorded Elsewhere: No Location: [facility] Source: EHR Chronic: N Practice ID: [id number] Billable Time: 10:30:00 AM Oth related conditions, third trimester;Practice ID: 0001 Secondary amenorrhea 05/02/2017 Overview (01/24/2023): Secondary amenorrhea;Recorded Elsewhere: No Location: [facility] Source: EHR Chronic: N Practice ID: [id number] Billable Time: 11:00:00 AM Amenorrhea, unspecified;Recorded Elsewhere: No Location: [facility] Source: EHR Chronic: N Practice ID: [id number] Billable Time: 02:30:00 PM Chronic pelvic pain in female 07/13/2015 Dysmenorrhea 07/13/2015 Dysuria 07/13/2015 Pain in joint involving right pelvic region and thigh 07/13/2015 Oligomenorrhea 01/10/2015 Overview (01/24/2023): Excessive and frequent menstruation with irregular cycle;Recorded Elsewhere: No Location: [facility] Source: EHR Chronic: N Practice ID: [id number] Billable Time: 05:15:00 PM Right lower quadrant pain 10/01/2014 Overview (01/24/2023): RLQ pain;Recorded Elsewhere: No Location: [facility] Source: EHR Chronic: N Practice ID: [id number] Billable Time: 09:15:00 AM Female genital symptoms 10/01/2014 Overview (01/24/2023): Unspecified symptom associated with female genital organs;Recorded Elsewhere: No Location: [facility] Source: EHR Chronic: N Practice ID: [id number] Billable Time: 09:15:00 AM Increased frequency of urination 09/15/2014 Overview (01/24/2023): Urinary frequency;Practice ID: 0001 Dysuria 09/15/2014 Overview (01/24/2023): Dysuria;Recorded Elsewhere: No Location: [facility] Source: EHR Chronic: N Practice ID: [id number] Billable Time: 11:30:00 AM Endometriosis of pelvic peritoneum 05/04/2014 Overview (01/24/2023): Endometriosis of peritoneum of pelvis;Recorded Elsewhere: No Location: [facility] Source: EHR Chronic: N Practice ID: [id number] Billable Time: 03:15:00 PM Dysmenorrhea 04/07/2014 Overview (01/24/2023): Dysmenorrhea;Recorded Elsewhere: No Location: [facility] Source: EHR Chronic: N Practice ID: [id number] Billable Time: 09:15:00 AM Irregular intermenstrual bleeding 02/21/2014 Overview (01/24/2023): Metrorrhagia;Recorded Elsewhere: No Location: [facility] Source: EHR Chronic: N Practice ID: [id number] Billable Time: 03:30:00 PM Post-operative hemorrhage 09/04/2011 Overview (03/09/2021): status post tonsillectomy Immunizations Immunization Administration Dates Next Due DTaP, [...] on file Legal Sex Female 9:07 PM ESTATE PLANNER Gender Identity Female 03/09/2021 12:43 PM ESTATE PLANNER Sexual Orientation Straight 03/09/2021 12 :43 PM ESTATE PLANNER Last Filed Vital Signs Vital Sign Reading Time Taken Comments Blood Pressure 112/64 04/25/2021 1:59 PM ESTATE PLANNER Pulse 78 04/25/2021 1:59 PM ESTATE PLANNER Temperature 36.6 C (97.8 F) 04/25/2021 1:59 PM ESTATE PLANNER Respiratory Rate 16 04/25/2021 1:59 PM ESTATE PLANNER Oxygen Saturation 99% 04/25/2021 1:59 PM ESTATE PLANNER Inhaled Oxygen Concentration - - Weight 63.5 kg (140 lb) 01/24/2023 4:06 PM ESTATE PLANNER Height 154.9 cm (5' 1 ) 01/24/2023 4:06 PM ESTATE PLANNER Body Mass Index 26.45 01/24/2023 4:06 PM ESTATE PLANNER Plan of Treatment Not on file Procedures Procedure Name Priority Date/Time Associated Diagnosis Comments PAP WITH REFLEX TO HIGH RISK HPV Routine 04/25/2021 2:20 PM ESTATE PLANNER Encounter for well woman exam with routine gynecological exam from Last 3 Months or Most Recently Relevant to Health Maintenance Results * (ABNORMAL) Pap with reflex to High Risk HPV (04/25/2021 2:20 PM ESTATE PLANNER) Clinical indication Comment(A) [facility] - 01 Comment: [...] by Comment [facility] - 01 Comment:Alethea Black [facility] otechnologist ([facility]) Electronically signed by Comment [facility] - [...] sting results. Thin prep 04/25/2021 2:20 PM ESTATE PLANNER 04/26/2021 Narrative [facility] - 05/02/2021 7:09 AM ESTATE PLANNER Performed at: 01 - [facility] [id number] Charging Manipulator: Irma Garza MD, Phone: [phone] Specimen Comment: No. of containers..01 ThinPrep Vial us Sandi Rodrigues NP LAB CYTOLOGY ORDERABLES Final Result [facility] from Last 3 Months or Most Recently Relevant to Health Maintenance Insurance [facility] Care Teams Director Of Veterans Affairs Relationship Specialty Start Date End Date Moses Goode MD 03/09/21
--- OUTSIDE RECORDS SUMMARY | 2024-05-29 10:46 | XMS_ITS | Clinical Summary ---
Author Organization [facility] Address [address] [place] [address] Phone Care Team Providers Care Poly Operator Name Role Phone Michelle Thakur MD Primary [...] on file Legal Sex Female 6:01 AM BROOM HANDLE DIPPER Gender Identity Not on file Sexual Orientation [...] (1 of 3 - 19+ 3-dose series) 08/09 PAP SMEAR 2018 INFLUENZA VACCINE (#1) 2023 Medical Devices Implanted Type Area Wood Flour Miller Device Identifier Shelf Expiration Date Model / Serial / Lot Tube Vent Collar Button Ultrasil [id number] - [id number] Implanted:Qty: 1 on 08/28/[address] [facility] Ear [employer] [id number] / / Insurance [employer] PPO [employer] P[employer] Care Teams Poly Operator Relationship Specialty Start Date End Date Michelle Thakur MD [address] [place] [address] PCP - General Pediatrics 07/28/10
--- OUTSIDE RECORDS SUMMARY | 2024-05-29 10:47 | XMS_ITS | Data Portability ---
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 [email or web address] Not Available 2018 15:36:05 10/25/19 19 10/17/2018 venou s gayatrii ng, lower extre mity No observ ation record ed. [email or web address] Not Available 2018 16:27:43 11/04/19 19 10/24/2018 (SACHA) ankle brach ial index * No observ ation record ed. [email or web address] Not Available 2018 10:06:23 11/26/19 19 10/24/2018 US, doppl er, arter ial No observ ation record ed. [email or web address] Not Available 2018 11:14:28 Result Notes None recorded. Problems Name Problem SNOMED Code Status Onset Date Resolution Date Notes Provider Name and Address Organization Details Recorded Time Asthma 738131804 Active 2018 Brady persaud, [place] - [facility] 9 01:33:54 Endometriosis (clinical) 588496002 Active 2018 Brady Menard [facility], [place] - [facility] 9 01:34:11 Swelling of lower leg 221541853 Active 2018 Brady Menard [facility], [place] - [facility] 9 01:37:39 Anxiety 39221882 Active 2018 [place] - [facility] 9 17:26:10 Depressive disorder 25503398 Active 2018 [facility] Farida null, [facility] 9 17:26:20 Problem Notes None recorded. Procedures Surgical History Date Name Laterality Status Provider Name and Address Organization Details Recorded Time operation on external ear completed [facility] 10/06/2018 17:12:05 tonsillectomy completed [facility] 10/06/2018 17:12:15 Imaging Results Imaging Date Name Status LastModified by Organization Details LastModified Time 10/06/2018 electrocardiogram completed [email or web address] Informa tion not available 10/12/2018 15:36:05 10/17/2018 venous mapping, lower extremity completed [email or web address] Information not available 10/27/2018 16:27:43 10/24/2018 (SACHA) ankle brachial index* completed [email or web address] Information not available 11/03/2018 10:06:23 10/24/2018 US, [...] Not available 10/06/2018 723 RxNorm Brady persaud, [place] - [facility] 9 01:34:33 8618 Product containin g penicilli n (product) medicatio n Not available Not available Not available 10/06/2018 09611 8001 SNOMED Brady Menard [facility] 9 01:34:41 8619 codeine medicatio n Not available Not available Not available 10/06/2018 2670 RxNorm Brady Menard [facility] 9 01:34:48 Medications Name Sig Start Date [...] Updated DateTime 9 154.94 cm 26.8 kg/m2 81745.1 2 g 91 /min 18 /min 97 % 97 % 110 mm[Hg] 66 mm[Hg] Temi Carvajal [facility] 9 17:09:25 Date Recorded Body height Body mass index (BMI) Body weight Respiratory rate Oxygen saturation Oxygen saturation in Arterial blood by Pulse oximetry Heart rate Systolic blood pressure Diastolic blood pressure Provider Name and Address Organization Details Last Updated DateTime 9 154.94 cm 25.3 kg/m2 85904.3 8 g 18 /min 97 % 97 % 96 /min 106 mm[Hg] 66 mm[Hg] Elva Rice [facility] 9 16:45:37 Social History Question Answer Notes LastModified by Organizat ion Details LastModified Time Tobacco Smoking Status Current Every Day Smoker Not Available [facility] 01/12/2020 03:30:41 Do You Have An Advance Directive? No [id number] Information not available 01/12/2020 What Is Your Level Of Alcohol Consumption? None [id number] Information not available 01/12/2020 What Is Your Level Of Caffeine Consumption? Moderate [id number] Information not available 01/12/2020 How Much Tobacco Do You Chew? None [id number] Information not available 01/12/2020 What Type Of Diet Are You Following? REGULAR [id number] Information not available 01/12/2020 Which Illicit Or Recreational Drugs Have You Used? No MJ [id number] Information not available 01/12/2020 Live Alone Or With Others? [email or web address] Information not available 10/06/2018 Marital Status Single [facility] Informatio n not available 10/06/2018 How Many Children Do You Have? 1 [id number] Information not available 01/12/2020 At What Age Did You Start Smoking Tobacco? 15 [id number] Information not available 01/12/2020 How Much Tobacco Do You Smoke? 0.5 PPD [id number] Information not available 01/12/2020 General Stress Level Low [email or web address] Information not available 10/06/2018 How Many Years Have You Smoked Tobacco? 10 [id number] Information not available 01/12/2020 Sex: Unknown Functional Status Question Answer Note LastModified by Organization D etails LastModified Time What is your exercise level? Moderate [id number] Information not available 01/12/2020 Mental Status None [...] SNOMED-CT Code Diagnosis ICD10 Code Diagnosis Note 18204 Suzanna Francesca Mustafa e Office [address] [address] 10/06/2018 16:32:03 10/06/2018 17:35:18 Swelling of lower leg 141932364 R22.40 ECHO, Venous [facility] [address] [facility] [address] [address] 11/03/2018 16:26:57 11/03/2018 17:06:13 Edema of lower extremity 033797412 R60.0 Venous reflux negativeLi erika physiologi c due to pregnancyL ow salt diet encouraged Palpitations 69973613 R0 0.2 Check 2D echoCheck 24 Holter monitorWil l follow up in 1 month 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 She would like to quit without meds. Health Concerns Section Related Observation LastModified by Organization Detai ls LastModified Time None Recorded Concern Status LastModified by Organization Details LastModified Time None Recorded Advance Directives Directive N: Payers Encounter Date Sequence Insurance Name Policy Number Policy Daniels Covered Member ID Daniels Member ID Guarantor Name 10/06/2018 1 [facility] PRIOR TO 03/11/20 (O) Alexandrea Craig [id number] Alexandrea Craig 11/03/2018 1 [facility] PRIOR TO 03/11/20 ([facility] Alexandrea Craig [id number] Alexandrea Craig Notes Date Note Type Note [...] 274 EKG 10/06/18 : NSR, NSST changes Suzannasherry Ma [facility] 10/22/2018 13:30:55 11/03/2018 text/html [...] by Russ Gil and plan discussed with HOPE Tucker - [facility] 11/03/2018 17:06:10 OBGyn Episode No OBEpisode recorded.
--- OUTSIDE RECORDS SUMMARY | 2024-05-29 10:47 | XMS_ITS | Data Portability ---
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 Discussed plan. [email or web address] Not available 01/16/2022 12:25:22 02/28/2022 02/28/2022 plan kyleena when starts menstrual cycle, reviewed risks benefits, f/u pcp as scheduled schedule 2 hour GTT [email or web address] Not available 02/28/2022 14:18:28 Plan of Treatment Reminders Order Date Submit Date Provider Last Modified By Organization Details Last Modified Time Details Appointments None recorded. Lab None recorded. Referral None recorded. Procedures None recorded. Surgeries None recorded. Imaging US, obstetric, biophysical profile + non-stress test 2021 022 [email or web address] [place], [address], [address], [place], [address], 08:36:52 non-stress test 2021 022 [place], [address], [address], [place], [address], 12:28:48 non-stress test 2021 022 [email or web address] [place], [address], [address], [place], [address], 14:09:17 Medication Orders None recorded. Patient TargetsNo targets recorded. Patient InstructionsNo instructions recorded. Reason for Referral None Reported. Results Created Date Observation Date Name Description Value Unit Range Abnormal Flag Note LastModifiedBy Organization Detail LastModifiedTime 12/22/19 22 12/21/2021 [facility] DRUG SCREE N W/CON FIRMA TION (19 DRUGS ) synthetic cannabinoids , ql, (U) NEGATI VE negati ve Not Available [facility] [address] [place], [address], 12/28/2021 04:07:01 12/22/1912/21/2021 [facility] DRUG SCREE N W/CON FIRMA TION (19 [...] for clini francisco purpo ses. Not Available [facility] Infect[facility] [place], [address], 12/28/2021 04:07:01 12/22/19 22 12/21/2021 S DRUG SCREE N W/CON FIRMA TION (19 DRUGS ) alcohol metabolites NEGATI VE NG/mL <500 Not Available [facility] [address] [place], [place] [address], [place], [address], 12/28/2021 04:07:01 12/22/19 22 12/21/2021 [facility] DRUG SCREE N W/CON FIRMA TION (19 DRUGS ) buprenorphin e, ql NEGATI VE NG/mL <5 Not Available [facility] [address] [place], [place] [address], [place], [address], 12/28/2021 04:07:01 12/22/19 22 12/21/2021 S DRUG SCREE N W/CON FIRMA TION (19 DRUGS ) fentanyl, ql NEGATI VE NG/mL <0.5 Not Available [facility] [address] [place] [address], [address], 12/28/2021 04:07:01 12/22/19 22 12/21/2021 S DRUG SCREE N W/CON FIRMA TION (19 DRUGS ) 6 acetylmorphi ne NEGATI VE NG/mL <10 Not Available [facility] [address] [place] [address], [address], 12/28/2021 04:07:01 12/22/19 22 12/21/2021 S DRUG SCREE N W/CON FIRMA TION (19 DRUGS ) MDMA NEGATI VE NG/mL <500 Not Available [facility] [address] [place] [address], [address], 12/28/2021 04:07:01 12/22/19 22 12/21/2021 [facility] DRUG SCREE N W/CON FIRMA TION (19 DRUGS ) desmethyltra madol NEGATI VE NG/mL <100 Not Available [facility] [address], [place], [address], 12/28/2021 04:07:01 12/22/19 22 12/21/2021 [facility] DRUG SCREE N W/CON FIRMA TION (19 DRUGS ) tramadol NEGATI VE NG/mL <100 Not Available [facility] [address], [place], [address], 12/28/2021 04:07:01 12/22/1912/21/2021 S DRUG SCREE N W/CON FIRMA TION (19 DRUGS ) tramadol comments See LDT Notes Not Available [facility] [address], [place], [address], 12/28/2021 04:07:01 12/22/19 22 12/21/2021 [facility] DRUG SCREE N W/CON FIRMA TION (19 DRUGS ) ritalinic acid NEGATI VE NG/mL <100 Not Available [facility] [address] [place], [address], 12/28/2021 04:07:01 12/22/19 22 12/21/2021 [facility] DRUG SCREE N W/CON FIRMA TION (19 DRUGS ) ritalinic acid comments See LDT Notes Not Available [facility] [address] [place], [address], 12/28/2021 04:07:01 12/22/19 22 12/21/2021 [facility] DRUG SCREE N W/CON FIRMA TION (19 DRUGS ) amphetamines NEGATI VE NG/mL <500 Not Available [facility] [address] [place], [address], 12/28/2021 04:07:01 12/22/19 22 12/21/2021 [facility] DRUG SCREE N W/CON FIRMA TION (19 DRUGS ) barbiturates NEGATI VE NG/mL <300 Not Available [facility] [address] [place] [address], [address], 12/28/2021 04:07:01 12/22/1912/21/2021 [facility] DRUG SCREE N W/CON FIRMA TION (19 DRUGS ) benzodiazepi conor NEGATI VE NG/mL <100 Not Available [facility] [address] [place] [address], [address], 12/28/2021 04:07:01 12/22/1912/21/2021 [facility] DRUG SCREE N W/CON FIRMA TION (19 DRUGS ) cocaine metabolite NEGATI VE NG/mL <150 Not Available [facility] [address] [place] [address], [address], 12/28/2021 04:07:01 12/22/19 22 12/21/2021 [facility] DRUG SCREE N W/CON FIRMA TION (19 DRUGS ) marijuana metabolite POSITI VE NG/mL <20 abnormal Not Available [facility] [address] [place] [address], [address], 12/28/2021 04:07:01 12/22/1912/21/2021 [facility] DRUG SCREE N W/CON FIRMA TION (19 DRUGS ) marijuana metabolite 792 NG/mL <5 high Not Available [facility] [address] [place] [address], [address], 12/28/2021 04:07:01 12/22/1912/21/2021 [facility] DRUG SCREE N W/CON FIRMA TION (19 DRUGS ) marijuana comments See Diann aldana Notes , LDT Notes Not Available [facility] [address] [place], [address], 12/28/2021 04:07:01 12/22/19 22 12/21/2021 [facility] DRUG SCREE N W/CON FIRMA TION (19 DRUGS ) methadone metabolite NEGATI VE NG/mL <100 Not Available [facility] [address] [place], [place] [address], [place], [address], 12/28/2021 04:07:01 12/22/19 22 12/21/2021 [facility] DRUG SCREE N W/CON FIRMA TION (19 DRUGS ) opiates NEGATI VE NG/mL <100 Not Available [facility] [address] [place] [address], [address], 12/28/2021 04:07:01 12/22/19 22 12/21/2021 [facility] DRUG SCREE N W/CON FIRMA TION (19 DRUGS ) oxycodone NEGATI VE NG/mL <100 Not Available [facility] [address] [place], [address], 12/28/2021 04:07:01 12/22/19 22 12/21/2021 [facility] DRUG SCREE N W/CON FIRMA TION (19 DRUGS ) phencyclidin e NEGATI VE NG/mL <25 Not Available [facility] [address] [place], [address], 12/28/2021 04:07:01 12/22/19 22 12/21/2021 [facility] DRUG SCREE N W/CON FIRMA TION (19 DRUGS ) eszopiclone NEGATI VE NG/mL <5 Not Available [facility] [address] [place], [address], 12/28/2021 04:07:01 12/22/19 22 12/21/2021 [facility] DRUG SCREE N W/CON FIRMA TION (19 DRUGS ) eszopiclone metabolite NEGATI VE NG/mL <5 Not Available [facility] [address] [place], [address], 12/28/2021 04:07:01 12/22/19 22 12/21/2021 [facility] DRUG SCREE N W/CON FIRMA TION (19 DRUGS ) eszopiclone comments See LDT Notes Not Available [facility] [address] [place], [address], 12/28/2021 04:07:01 12/22/19 22 12/21/2021 [facility] DRUG SCREE N W/CON FIRMA TION (19 DRUGS ) zolpidem NEGATI VE NG/mL <5 Not Available [facility] [place], [address], 12/28/2021 04:07:01 12/22/19 22 12/21/2021 [facility] DRUG SCREE N W/CON FIRMA TION (19 DRUGS ) zolpidem metabolite NEGATI VE NG/mL <5 Not Available [facility] [address] [place], [address], 12/28/2021 04:07:01 12/22/19 22 12/21/2021 [facility] DRUG SCREE N W/CON FIRMA TION (19 DRUGS ) zolpidem comments See LDT Notes Not Available [facility] [address] [place], [address], 12/28/2021 04:07:01 12/22/19 22 12/21/2021 [facility] DRUG SCREE N W/CON FIRMA TION (19 DRUGS ) creatinine 118.7 mg/dL > or = 20.[address] [facility] Disease [address] [place], [address], 12/28/2021 04:07:01 12/22/19 22 12/21/2021 [facility] DRUG SCREE N W/CON FIRMA TION (19 DRUGS ) pH 7.8 4.5-9. [address] [facility] [address] [place], [address], 12/28/2021 04:07:01 12/22/19 22 12/21/2021 [facility] DRUG SCREE N W/CON FIRMA TION (19 DRUGS ) oxidant NEGATI VE mcg/m L <[address] [facility] Disease [address] [place] [address], [address], 12/28/2021 04:07:01 12/22/19 22 12/21/2021 [facility] DRUG SCREE N W/CON FIRMA TION (19 [...] shoul d be used only by [facility] to rende r diagn osis or treat ment, or to monit or progr ess of medic al condi tions . For moises tance with inter preti ng these drug resul ts, pleas e conta ct a [facility] : -40-R X TOX ( [phone] ), M-F, 8am-6 pm EST. Not Available [facility] [address] [place], [address], 12/28/2021 04:07:01 12/22/19 22 12/21/2021 [facility] DRUG SCREE N W/CON FIRMA TION (19 DRUGS ) always message See Note 1 Perfo rming Organ izati on Infor matio n: Site ID: AT Name: [facility] Addre ss: [address] [place] [address] Direc tor: Dr Abelino Casillas Site ID: CB Name: [facility] Trip Addre ss: [address] [place] [address] Direc tor: Luna saucedo M.D. Not Available [facility] [address] [place], [address], 12/28/2021 04:07:01 12/22/19 22 12/21/2021 drug scree n, urine Amphetamines : negati ve Not Available [place] [address], [place], [address], 12/21/2021 14:36:29 12/22/19 22 12/21/2021 drug scree n, urine Cannabinoids : negati ve Not Available [place] [address], [place], [address], 12/21/2021 14:36:29 12/22/19 22 12/21/2021 drug scree n, urine Cocaine: negati ve Not Available [place] [address], [place], [address], 12/21/2021 14:36:29 12/22/19 22 12/21/2021 drug scree n, urine Opiates: negati ve Not Available [place] [address], [place], [address], 12/21/2021 14:36:29 12/22/19 22 12/21/2021 drug scree n, urine Phenocyclidi ne: negati ve Not Available [place] [address], [place], [address], 12/21/2021 14:36:29 12/22/19 22 12/21/2021 drug scree n, urine Barbiturates : negati ve Not Available [place] [address], [place], [address], 12/21/2021 14:36:29 12/22/19 22 12/21/2021 drug scree n, urine Benzodiazepi conor: positi ve Not Available [place] [address], [place], [address], 12/21/2021 14:36:29 12/22/19 22 12/21/2021 drug scree n, urine Ethanol: negati ve Not Available [place] [address], [place], [address], 12/21/2021 14:36:29 12/22/19 22 12/21/2021 drug scree n, urine Hallucinogen s: negati ve Not Available [place] [address], [place], [address], 12/21/2021 14:36:29 12/22/19 22 12/21/2021 drug scree n, urine Inhalants: negati ve Not Available [place] [address], [place], [address], 12/21/2021 14:36:29 12/22/19 22 12/21/2021 drug scree n, urine Anabolic Steroids: negati ve Not Available [place] [address], [place], [address], 12/21/2021 14:36:29 12/22/19 22 12/21/2021 drug scree n, urine Other: positi ve Not Available [place] [address], [place], [address], 12/21/2021 14:36:29 01/11/20 22 01/10/2022 HEMOG LOBIN [...] >8.0% Actio n sugge sted Not Available [facility] (Lab) [address], [place], [address], 01/11/2022 05:04:51 01/11/20 22 01/10/2022 CULTU RE: [...] Resul sincere Lab: [facility] [address] [facility] [address] Tel: CULTU RE ----- ----- ----- --- [...] lab withi n 5 days. Not Available [facility] (Lab) [address] [place], [address], 01/13/2022 19:03:25 01/11/20 22 01/10/2022 S DRUG SCREE N W/CON FIRMA TION (19 DRUGS ) synthetic cannabinoids , ql, (U) NEGATI VE negati ve Not Available [facility] (Lab) [address] [place], [address], 01/14/2022 13:17:52 01/11/20 22 01/10/2022 S DRUG [...] cteri stics have been deter mined by [email or web address]. It has not been clear ed or appro cricket by FDA. This assay has been valid ated pursu ant to the CLIA regul ation s and is used for clini francisco purpo ses. Not Available [facility] (Lab) [address] [place], [address], 01/14/2022 13:17:52 01/11/20 22 01/10/2022 [facility] DRUG SCREE N W/CON FIRMA TION (19 DRUGS ) alcohol metabolites NEGATI VE NG/mL <500 Not Available [facility] (Lab) [address] [place], [address], 01/14/2022 13:17:52 01/11/20 22 01/10/2022 [facility] DRUG SCREE N W/CON FIRMA TION (19 DRUGS ) buprenorphin e, ql NEGATI VE NG/mL <5 Not Available [facility] (Lab) [address] [place], [address], 01/14/2022 13:17:52 01/11/20 22 01/10/2022 [facility] DRUG SCREE N W/CON FIRMA TION (19 DRUGS ) fentanyl, ql NEGATI VE NG/mL <0.5 Not Available [facility] (Lab) [address] [facility], [place], [address], 01/14/2022 13:17:52 01/11/20 22 01/10/2022 [facility] DRUG SCREE N W/CON FIRMA TION (19 DRUGS ) 6 acetylmorphi ne NEGATI VE NG/mL <10 Not Available [facility] (Lab) [address] [facility], [place], [address], 01/14/2022 13:17:52 01/11/20 22 01/10/2022 [facility] DRUG SCREE N W/CON FIRMA TION (19 DRUGS ) MDMA NEGATI VE NG/mL <500 Not Available [facility] (Lab) [address] [facility], [place], [address], 01/14/2022 13:17:52 01/11/20 22 01/10/2022 [facility] DRUG SCREE N W/CON FIRMA TION (19 DRUGS ) desmethyltra madol NEGATI VE NG/mL <100 Not Available [facility] (Lab) [address] [facility], [place], [address], 01/14/2022 13:17:52 01/11/20 22 01/10/2022 [facility] DRUG SCREE N W/CON FIRMA TION (19 DRUGS ) tramadol NEGATI VE NG/mL <100 Not Available [facility] (Lab) [address] [facility], [place], [address], 01/14/2022 13:17:52 01/11/20 22 01/10/2022 [facility] DRUG SCREE N W/CON FIRMA TION (19 DRUGS ) tramadol comments See LDT Notes Not Available [facility] (Lab) [address] [facility], [place], [address], 01/14/2022 13:17:52 01/11/20 22 01/10/2022 [facility] DRUG SCREE N W/CON FIRMA TION (19 DRUGS ) ritalinic acid NEGATI VE NG/mL <100 Not Available [facility] (Lab) [address] [facility], [place], [address], 01/14/2022 13:17:52 01/11/20 22 01/10/2022 [facility] DRUG SCREE N W/CON FIRMA TION (19 DRUGS ) ritalinic acid comments See LDT Notes Not Available [facility] (Lab) [address] [facility], [place], [address], 01/14/2022 13:17:52 01/11/20 22 01/10/2022 [facility] DRUG SCREE N W/CON FIRMA TION (19 DRUGS ) amphetamines NEGATI VE NG/mL <500 Not Available [facility] (Lab) [address] [facility] [address], [place], [address], 01/14/2022 13:17:52 01/11/20 22 01/10/2022 [facility] DRUG SCREE N W/CON FIRMA TION (19 DRUGS ) barbiturates NEGATI VE NG/mL <300 Not Available [facility] (Lab) [address], [place], [address], 01/14/2022 13:17:52 01/11/20 22 01/10/2022 [facility] DRUG SCREE N W/CON FIRMA TION (19 DRUGS ) benzodiazepi conor NEGATI VE NG/mL <100 Not Available [facility] (Lab) [address] [facility], [place], [address], 01/14/2022 13:17:52 01/11/20 22 01/10/2022 [facility] DRUG SCREE N W/CON FIRMA TION (19 DRUGS ) cocaine metabolite NEGATI VE NG/mL <150 Not Available [facility] (Lab) [address] [facility] [address], [place], [address], 01/14/2022 13:17:52 01/11/20 22 01/10/2022 [facility] DRUG SCREE N W/CON FIRMA TION (19 DRUGS ) marijuana metabolite POSITI VE NG/mL <20 abnormal Not Available [facility] (Lab) [address] [facility], [place], [address], 01/14/2022 13:17:52 01/11/20 22 01/10/2022 [facility] DRUG SCREE N W/CON FIRMA TION (19 DRUGS ) marijuana metabolite 796 NG/mL <5 high Not Available [facility] (Lab) [address] [facility] [address] [facility], [place], [address], 01/14/2022 13:17:52 01/11/20 22 01/10/2022 [facility] DRUG SCREE N W/CON FIRMA TION (19 DRUGS ) marijuana comments See Diann aldana Notes , LDT Notes Not Available [facility] (Lab) [address] [facility] [address], [place], [address], 01/14/2022 13:17:52 01/11/20 22 01/10/2022 [facility] DRUG SCREE N W/CON FIRMA TION (19 DRUGS ) methadone metabolite NEGATI VE NG/mL <100 Not Available [facility] (Lab) [address] [facility], [place], [address], 01/14/2022 13:17:52 01/11/20 22 01/10/2022 [facility] DRUG SCREE N W/CON FIRMA TION (19 DRUGS ) opiates NEGATI VE NG/mL <100 Not Available [facility] (Lab) [address] [place], [address], 01/14/2022 13:17:52 01/11/20 22 01/10/2022 [facility] DRUG SCREE N W/CON FIRMA TION (19 DRUGS ) oxycodone NEGATI VE NG/mL <100 Not Available [facility] (Lab) [address] [facility], [place], [address], 01/14/2022 13:17:52 01/11/20 22 01/10/2022 [facility] DRUG SCREE N W/CON FIRMA TION (19 DRUGS ) phencyclidin e NEGATI VE NG/mL <25 Not Available [facility] (Lab) [address] [facility], [place], [address], 01/14/2022 13:17:52 01/11/20 22 01/10/2022 [facility] DRUG SCREE N W/CON FIRMA TION (19 DRUGS ) eszopiclone NEGATI VE NG/mL <5 Not Available [facility] (Lab) [address] [facility], [place], [address], 01/14/2022 13:17:52 01/11/20 22 01/10/2022 [facility] DRUG SCREE N W/CON FIRMA TION (19 DRUGS ) eszopiclone metabolite NEGATI VE NG/mL <5 Not Available [facility] (Lab) [address] [facility], [place], [address], 01/14/2022 13:17:52 01/11/20 22 01/10/2022 [facility] DRUG SCREE N W/CON FIRMA TION (19 DRUGS ) eszopiclone comments See LDT Notes Not Available [facility] (Lab) [address] [facility], [place], [address], 01/14/2022 13:17:52 01/11/20 22 01/10/2022 [facility] DRUG SCREE N W/CON FIRMA TION (19 DRUGS ) zolpidem NEGATI VE NG/mL <5 Not Available [facility] (Lab) [address] [facility], [place], [address], 01/14/2022 13:17:52 01/11/20 22 01/10/2022 [facility] DRUG SCREE N W/CON FIRMA TION (19 DRUGS ) zolpidem metabolite NEGATI VE NG/mL <5 Not Available [facility] (Lab) [address] [facility], [place], [address], 01/14/2022 13:17:52 01/11/20 22 01/10/2022 [facility] DRUG SCREE N W/CON FIRMA TION (19 DRUGS ) zolpidem comments See LDT Notes Not Available [facility] (Lab) [address] [facility], [place], [address], 01/14/2022 13:17:52 01/11/20 22 01/10/2022 [facility] DRUG SCREE N W/CON FIRMA TION (19 DRUGS ) creatinine 55.3 mg/dL > or = 20.0 Not Available [facility] (Lab) [address] [facility], [place], [address], 01/14/2022 13:17:52 01/11/20 22 01/10/2022 [facility] DRUG SCREE N W/CON FIRMA TION (19 DRUGS ) pH 7.2 4.5-9. 0 Not Available [facility] (Lab) [address] [facility], [place], [address], 01/14/2022 13:17:52 01/11/20 22 01/10/2022 [facility] DRUG SCREE N W/CON FIRMA TION (19 DRUGS ) oxidant NEGATI VE mcg/m L <200 Not Available [facility] (Lab) [address] [facility], [place], [address], 01/14/2022 13:17:52 01/11/20 22 01/10/2022 S DRUG [...] us at 1.877 .40.R XTOX (. [phone] .[phone] ) M-F, 8am to 10pm EST Note [...] ), M-F, 8am-6 pm EST. Not Available [facility] (Lab) [address] [facility], [place], [address], 01/14/2022 13:17:52 01/11/20 22 01/10/2022 [facility] DRUG SCREE N W/CON FIRMA TION (19 DRUGS ) always message See Note 1 Perfo rming Organ izati on Infor sydney n: Site ID: AT Name: [facility] Addre ss: [address] [place] [address] Direc tor: Dr Abelino Casillas Site ID: CB Name: [facility] Trip Addre ss: [address] [place] [address] Direc tor: Luna saucedo M.D. Not Available [facility] (Lab) [address], [place], [address], 01/14/2022 13:17:52 01/11/20 22 01/10/2022 drug scree n, urine Amphetamines : negati ve Not Available [place] [address], [place], [address], 01/10/2022 12:44:27 01/11/20 22 01/10/2022 drug scree n, urine Cannabinoids : negati ve Not Available [place] [address], [place], [address], 01/10/2022 12:44:27 01/11/20 22 01/10/2022 drug scree n, urine Cocaine: negati ve Not Available [place] [address], [place], [address], 01/10/2022 12:44:27 01/11/20 22 01/10/2022 drug scree n, urine Opiates: negati ve Not Available [place] [address], [place], [address], 01/10/2022 12:44:27 01/11/20 22 01/10/2022 drug scree n, urine Phenocyclidi ne: negati ve Not Available [place] [address], [place], [address], 01/10/2022 12:44:27 01/11/20 22 01/10/2022 drug scree n, urine Barbiturates : negati ve Not Available [place] [address], [place], [address], 01/10/2022 12:44:27 01/11/20 22 01/10/2022 drug scree n, urine Ethanol: negati ve Not Available [place] [address], [place], [address], 01/10/2022 12:44:27 01/11/20 22 01/10/2022 drug scree n, urine Hallucinogen s: negati ve Not Available [place] [address], [place], [address], 01/10/2022 12:44:27 01/11/20 22 01/10/2022 drug scree n, urine Inhalants: negati ve Not Available [place] [address], [place], [address], 01/10/2022 12:44:27 01/11/20 22 01/10/2022 drug scree n, urine Anabolic Steroids: negati ve Not Available [address], [place], [address], 01/10/2022 12:44:27 01/11/20 22 01/10/2022 drug scree n, urine Other: positi ve Not Available [address], [place], [address], 01/10/2022 12:44:27 01/17/20 22 01/16/2022 [facility]UG SCREE N W/CON FIRMA TION (19 DRUGS ) synthetic cannabinoids , ql, (U) NEGATI VE negati ve Not Available [facility] (Lab) [address], [place], [address], 01/21/2022 14:06:53 01/17/20 22 01/16/2022 S DRUG [...] cteri stics have been deter mined by [email or web address]. It has not been clear ed or appro cricket by FDA. This assay has been valid ated pursu ant to the CLIA regul ation s and is used for clini francisco purpo ses. Not Available [facility] (Lab) [address] [place], [address], 01/21/2022 14:06:53 01/17/20 22 01/16/2022 [facility] DRUG SCREE N W/CON FIRMA TION (19 DRUGS ) alcohol metabolites NEGATI VE NG/mL <500 Not Available [facility] (Lab) [address] [place], [address], 01/21/2022 14:06:53 01/17/20 22 01/16/2022 [facility] DRUG SCREE N W/CON FIRMA TION (19 DRUGS ) buprenorphin e, ql NEGATI VE NG/mL <5 Not Available [facility] (Lab) [address] [place], [address], 01/21/2022 14:06:53 01/17/20 22 01/16/2022 [facility] DRUG SCREE N W/CON FIRMA TION (19 DRUGS ) fentanyl, ql NEGATI VE NG/mL <0.5 Not Available [facility] (Lab) [address] [place], [address], 01/21/2022 14:06:53 11/08/20 22 01/16/2022 [facility] DRUG SCREE N W/CON FIRMA TION (19 DRUGS ) 6 acetylmorphi ne NEGATI VE NG/mL <10 Not Available [facility] (Lab) [address], [place], [address], 01/21/2022 14:06:53 01/17/20 22 01/16/2022 [facility] DRUG SCREE N W/CON FIRMA TION (19 DRUGS ) MDMA NEGATI VE NG/mL <500 Not Available [facility] (Lab) [address], [place], [address], 01/21/2022 14:06:53 01/17/20 22 01/16/2022 [facility] DRUG SCREE N W/CON FIRMA TION (19 DRUGS ) desmethyltra madol NEGATI VE NG/mL <100 Not Available [facility] (Lab) [address], [place], [address], 01/21/2022 14:06:53 01/17/20 22 01/16/2022 [facility] DRUG SCREE N W/CON FIRMA TION (19 DRUGS ) tramadol NEGATI VE NG/mL <100 Not Available [facility] (Lab) [address], [place], [address], 01/21/2022 14:06:53 01/17/20 22 01/16/2022 [facility] DRUG SCREE N W/CON FIRMA TION (19 DRUGS ) tramadol comments See LDT Notes Not Available [facility] (Lab) [address], [place], [address], 01/21/2022 14:06:53 01/17/20 22 01/16/2022 [facility] DRUG SCREE N W/CON FIRMA TION (19 DRUGS ) ritalinic acid NEGATI VE NG/mL <100 Not Available [facility] (Lab) [address], [place], [address], 01/21/2022 14:06:53 01/17/20 22 01/16/2022 [facility] DRUG SCREE N W/CON FIRMA TION (19 DRUGS ) ritalinic acid comments See LDT Notes Not Available [facility] (Lab) [address], [place], [address], 01/21/2022 14:06:53 01/17/20 22 01/16/2022 [facility] DRUG SCREE N W/CON FIRMA TION (19 DRUGS ) amphetamines NEGATI VE NG/mL <500 Not Available [facility] (Lab) [address], [place], [address], 01/21/2022 14:06:53 01/17/20 22 01/16/2022 [facility] DRUG SCREE N W/CON FIRMA TION (19 DRUGS ) barbiturates NEGATI VE NG/mL <300 Not Available [facility] (Lab) [address], [place], [address], 01/21/2022 14:06:53 01/17/20 22 01/16/2022 [facility] DRUG SCREE N W/CON FIRMA TION (19 DRUGS ) benzodiazepi conor NEGATI VE NG/mL <100 Not Available [facility] (Lab) [address], [place], [address], 01/21/2022 14:06:53 01/17/20 22 01/16/2022 [facility] DRUG SCREE N W/CON FIRMA TION (19 DRUGS ) cocaine metabolite NEGATI VE NG/mL <150 Not Available [facility] (Lab) [address], [place], [address], 01/21/2022 14:06:53 01/17/20 22 01/16/2022 [facility] DRUG SCREE N W/CON FIRMA TION (19 DRUGS ) marijuana metabolite POSITI VE NG/mL <20 abnormal Not Available [facility] (Lab) [address], [place], [address], 01/21/2022 14:06:53 01/17/20 22 01/16/2022 [facility] DRUG SCREE N W/CON FIRMA TION (19 DRUGS ) marijuana metabolite 1114 NG/mL <5 high Not Available [facility] (Lab) [address], [place], [address], 01/21/2022 14:06:53 01/17/20 22 01/16/2022 [facility] DRUG SCREE N W/CON FIRMA TION (19 DRUGS ) marijuana comments See Diann aldana Notes , LDT Notes Not Available [facility] (Lab) [address], [place], [address], 01/21/2022 14:06:53 01/17/20 22 01/16/2022 [facility] DRUG SCREE N W/CON FIRMA TION (19 DRUGS ) methadone metabolite NEGATI VE NG/mL <100 Not Available [facility] (Lab) [address], [place], [address], 01/21/2022 14:06:53 01/17/20 22 01/16/2022 [facility] DRUG SCREE N W/CON FIRMA TION (19 DRUGS ) opiates NEGATI VE NG/mL <100 Not Available [facility] (Lab) [address], [place], [address], 01/21/2022 14:06:53 01/17/20 22 01/16/2022 [facility] DRUG SCREE N W/CON FIRMA TION (19 DRUGS ) oxycodone NEGATI VE NG/mL <100 Not Available [facility] (Lab) [address], [place], [address], 01/21/2022 14:06:53 01/17/20 22 01/16/2022 [facility] DRUG SCREE N W/CON FIRMA TION (19 DRUGS ) phencyclidin e NEGATI VE NG/mL <25 Not Available [facility] (Lab) [address], [place], [address], 01/21/2022 14:06:53 01/17/20 22 01/16/2022 [facility] DRUG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
[2024-05-29 10:52] LABS: Percent Iron Saturation 15 % (20-50)
[2024-05-29 11:15] LABS: Thyroid Stimulating Hormone Reflex 0.625 uIU/mL (0.465-4.68)
[2024-05-29 11:33] LABS: D Dimer 0.34 ug/mL (<0.48)
[2024-05-29 11:53] LABS: Folic Acid > 20.0 ng/mL (2.76->20)
== END 2024-05-29 09:40 | disposition home or self-care (01) ==
LOC: ANHLAB 09:42
PROVIDERS: Visit Provider Internal Medicine
DX: R07.9 Chest pain, unspecified (principal)
CPT/HCPCS: 36415; 71046; 80053; 82607; 82746; 83540; 83550; 84443; 85025; 85380; 93005